=== PATIENT | female | born 1950 | race Caucasian/White ===

== ENCOUNTER 2018-05-11 12:47 | Emergency (ER) | payer MEDICARE, SELFPAY ==
[2018-05-11 12:55] VITALS: BP 145/54; PULSE 75; RESP 20; TEMP 36.7; O2SAT 95
--- NOTE | 2018-05-11 13:05 | DI.RAD_ITS ---
SYMPTOM/DIAGNOSIS: COUGH, SOB, LT BASE RHONCHI PA AND LATERAL CHEST: Comparison is made with 12/27/14. Heart size and pulmonary vasculature are stable. No consolidating infiltrates, effusions or pneumothoraces are identified. No findings to suggest congestive heart failure or pneumonia. Degenerative changes are seen in the spine. IMPRESSION: No acute pulmonary process.
--- NOTE | 2018-05-11 13:09 | ED.GENADUL_ITS ---
Discharge Plan Disposition Patient Disposition: HOME Condition: Improving Discharge Details Chief Complaint: RespSymp Clinical Impression: Acute exacerbation of chronic obstructive pulmonary disease (COPD) Primary Care Provider: Victor Manuel Maria ED Provider: Vega Salgado Home Meds and New Rx's Prescriptions: New doxycycline hyclate 100 mg capsule 100 mg PO BID 10 Days Qty: 20 RF: 0 prednisone 20 mg tablet 40 mg PO DAILY 5 Days Qty: 10 RF: 0 Continue aspirin [Aspir-81] 81 MG tablet,delayed release (DR/EC) 81 mg PO DAILY RF: 0 phenylephrine-guaifenesin [Child Mucinex Stuffy Nose-Cold] 118 ML liquid 1 tsp PO Q12H PRN Qty: 1 RF: 0 zolpidem 5 MG tablet 5 mg PO HS PRNQty: 30 RF: 1 simvastatin [Zocor] 20 MG tablet 20 mg PO HS Qty: 90 RF: 4 omeprazole 40 MG capsule,delayed release(DR/EC) 40 mg PO DAILY Qty: 90 RF: 4 metoprolol tartrate 50 MG tablet 50 mg PO BID Qty: 180 RF: 4 gabapentin 300 MG capsule 300 mg PO TID Qty: 270 RF: 4 oxybutynin chloride 5 MG tablet 2 tab PO DIRECTED Qty: 360 RF: 4 albuterol sulfate [ProAir HFA] 8.5 GM HFA aerosol inhaler 2 puff Inhalation Q4H PRN Qty: 1 RF: 5 ipratropium bromide 15 ML spray,non-aerosol 2 spry NS TID Qty: 1 RF: 5 fluticasone [Flovent HFA] 12 GM HFA aerosol inhaler 2 puff Inhalation BID Qty: 3 RF: 4 spacer 1 Q6H PRN Qty: 1 RF: 0 escitalopram oxalate 10 MG tablet 10 mg PO DAILY Qty: 90 RF: 4 Discharge Instructions Instructions: COPD (Chronic Obstructive Pulmonary Disease) (ED) Additional Instructions: Return for worsening difficulty breathing, development of fever, or any other acute concerns. Please follow-up with regular doctor if not improving in 5 days time Take medications as prescribed Medical Decision Making This is a 67-year-old female former smoker with a history of COPD. She presents with 2-3 days of worsening cough and congestion. She is afebrile, pleasant, speaking in full sentences. Her exam reveals left base rhonchi and diffuse wheeze. Given inhaled DuoNeb therapy, oral prednisone. Her differential diagnosis would include COPD exacerbation, bronchitis, pneumonia and patient referred for chest x-ray. Diagnostics: There is no acute finding on x-ray. Patient improved following treatment in the emergency department. Consistent with COPD and bronchitis. We will place her on a short burst of oral steroids and oral antibiotics. She understands return precautions to the ER. HPI General Mode of arrival: ambulatory . Date/Time Provider Initiated Documentation: 05/11/18 12:58 . Limitations to Documentation: no limitations . Information obtained by: patient . History of Present Illness 67 year old F presents to the emergency department with the chief complaint of Cough, described as moderate, Quality is described as dull, and is localized to the chest. Patient reports no radiation. Patient started experiencing this day(s) and it has been constant. No relieving factors improve symptom(s), No exacerbating factors reported . Patient notes cough; denies chest pain. HPI Narrative: Cough: 67-year-old female with history of COPD presents with days of gradual worsening of a productive cough with green sputum. She has not had a fever. She has had some improvement with home inhalers. She has no recent travel or known sick contacts. She denies any significant constitutional symptoms. She has otherwise been well Related Data Home Medications Medication Instructions Recorded Confirmed aspirin [Aspir-81] 81 mg PO DAILY tab-cap 01/19/13 05/11/18 phenylephrine-guaifenesin [Child 1 tsp PO Q12H PRN #1 bot 10/05/15 05/11/18 Mucinex Stuffy Nose-Cold] zolpidem 5 mg PO HS PRN #30 tab 09/19/17 05/11/18 simvastatin [Zocor] 20 mg PO HS #90 tab 10/02/17 05/11/18 gabapentin 300 mg PO TID #270 tab-cap 10/28/17 05/11/18 metoprolol tartrate 50 mg PO BID #180 tab-cap 10/28/17 05/11/18 omeprazole 40 mg PO DAILY #90 tab-cap 10/28/17 05/11/18 oxybutynin chloride 2 tab PO DIRECTED #360 tab 10/28/17 05/11/18 albuterol sulfate [ProAir HFA] 2 puff INHALATION Q4H PRN #1 11/15/17 05/11/18 inhaler fluticasone [Flovent HFA] 2 puff INHALATION BID #3 ea 11/15/17 05/11/18 ipratropium bromide 2 spry NS TID #1 inh 11/15/17 05/11/18 escitalopram oxalate 10 mg PO DAILY #90 tab-cap 03/04/18 05/11/18 doxycycline hyclate 100 mg PO BID 10 Days #20 cap 05/11/18 prednisone 40 mg PO DAILY 5 Days #10 tab 05/11/18 Previous Rx's Medication Instructions Recorded simvastatin [Zocor] 20 mg PO HS #90 tab 10/02/17 gabapentin 300 mg PO TID #270 tab-cap 10/28/17 metoprolol tartrate 50 mg PO BID #180 tab-cap 10/28/17 omeprazole 40 mg PO DAILY #90 tab-cap 10/28/17 oxybutynin chloride 2 tab PO DIRECTED #360 tab 10/28/17 albuterol sulfate [ProAir HFA] 2 puff INHALATION Q4H PRN #1 11/15/17 inhaler fluticasone [Flovent HFA] 2 puff INHALATION BID #3 ea 11/15/17 ipratropium bromide 2 spry NS TID #1 inh 11/15/17 escitalopram oxalate 10 mg PO DAILY #90 tab-cap 03/04/18 doxycycline hyclate 100 mg PO BID 10 Days #20 cap 05/11/18 prednisone 40 mg PO DAILY 5 Days #10 tab 05/11/18 Allergies Allergy/AdvReac Type Severity Reaction Status Date / Time hydrocodone [Hydrocodone] AdvReac Intermediate NAUSEA Unverified 05/11/18 12:58 General Stated Complaint: RespSymp TIANA: 3 Review of Systems Review of Systems 8 systems reviewed and otherwise negative PFSH Social History Smoking/Tobacco Use Status: Former Tobacco Use Surgical History Cholecystectomy (05/28/73) Exam Narrative Exam Narrative: GEN: awake, alert, oriented 3. Pleasant, well groomed, interactive. HEAD: Normocephalic, atraumatic ENT: Mucous membranes moist, oropharynx unremarkable, External ear exam unremarkable EYES: PERRL, EOMI NECK: Full ROM, no ALANNAH, no menigismus CHEST/RESP: Nontender, left base rhonchi. End expiratory wheeze bilaterally. Normal respiratory rate and excursion CARDIOVASCULAR: RRR, no murmur, rub meño. 2+ Rad pulse bilateral ABDOMEN: Soft, nontender, no mass. +Bowel sounds EXT: Full ROM, no edema, no rash Neuro: Grossly normal neurologic exam, conversant, interactive. Psych: Speech fluent, thoughts congruent, affect normal Course Vital Signs Temperature 36.7 C 05/11/18 12:55 Pulse 75 05/11/18 12:55 Respiratory Rate 20 05/11/18 12:55 Blood Pressure 145/54 H 05/11/18 12:55 Pulse Oximetry 95 05/11/18 12:55 Temperature 36.7 C 05/11/18 12:55 Temperature Source Skin 05/11/18 12:55 Pulse 75 05/11/18 12:55 Respiratory Rate 20 05/11/18 12:55 Respiratory Effort 05/11/18 13:01 Respiratory Depth Normal 05/11/18 13:01 Blood Pressure 145/54 H 05/11/18 12:55 Pulse Oximetry 95 05/11/18 12:55 Oxygen Delivery Method Room Air 05/11/18 12:55 Oxygen Flow Rate 0 05/11/18 12:55 End Tidal Co2 8 05/11/18 12:55
[2018-05-11] MEDS: predniSONE 20 MG TAB 60 MG PO (13:10)
[2018-05-11 13:11] VITALS: RESP 4; RESP 8; O2SAT 95
[2018-05-11] MEDS: Albuterol/Ipratropium 3 ML UPD VIAL UPD (13:11)
--- NOTE | 2018-05-11 14:12 | DI.VRAD_ITS ---
EXAM: XR Chest, 2 Views EXAM DATE/TIME: 05/11/2018 1:06 PM CLINICAL HISTORY: 67 years old, female; Signs and symptoms; Cough and shortness of breath; Patient HX: SOB, cough, l base rhonchi TECHNIQUE: XR of the chest, 2 views. COMPARISON: CR CHEST 2 VIEWS PA,LAT 12/27/2014 1:54 PM FINDINGS: Lungs: Stable mild interstitial prominence. No focal consolidation. Pleural space: Stable mild biapical pleural thickening. No significant pleural effusion or pneumothorax. Heart/Mediastinum: Unremarkable. No cardiomegaly. Bones/joints: Unremarkable for patient's age. IMPRESSION: No acute abnormality. Dictated and Authenticated by: Mago Villanueva MD. Ordering:FAUSTO OSBORNE MD
[2018-05-11 14:28] VITALS: BP 139/64; PULSE 68; RESP 18; TEMP 36.7; O2SAT 95
== END 2018-05-11 14:28 | disposition home or self-care (01) ==
PROVIDERS: Emergency Provider Emergency Medicine; PCP Family Medicine
DX: J44.1 Chronic obstructive pulmonary disease with (acute) exacerbation (principal); Z87.891 Personal history of nicotine dependence
CPT/HCPCS: 94640; 99284; 71046; J7512; J7620

== ENCOUNTER 2018-10-30 02:04 | Outpatient (CLI) | payer MEDICARE, SELFPAY ==
[2018-10-30 09:28] LABS: HCT 36.5 % (36.0-46.0); HGB 12.7 g/dL (12.0-15.5); Mean Corp. HGB Concentration 34.8 g/dL (32.0-36.0); Mean Corpuscular Hemoglobin 30.1 pg (27.0-33.0); Mean Corpuscular Volume 86.5 fL (80-95); Platelet Count 171 x1000/uL (130-400); RBC 4.22 m/cumm (4.00-5.20); RBC Distribution Width 14.3 % (11.7-14.6); White Blood Cell Count 6.18 k/cumm (4.4-10.8)
[2018-10-30 10:29] LABS: BUN 14 mg/dL (7-18); CREATININE 1.09 mg/dL (0.55-1.02); Calcium 10.9 mg/dL (8.5-10.1); Chloride 105 mmol/L (98-107); Estimated GFR 49.77 (mL/min/1.73m2); Glucose 142 mg/dL (70-100); Potassium 4.3 mmol/L (3.5-5.1); Sodium 141 mmol/L (136-145)
== END 2018-10-30 02:24 ==
PROVIDERS: PCP Family Medicine; Visit Provider Family Medicine
DX: D64.9 Anemia, unspecified (principal); I10 Essential (primary) hypertension
CPT/HCPCS: 36415; 80048; 85027

== ENCOUNTER 2019-01-01 02:27 | Outpatient (CLI) | payer MEDICARE, SELFPAY ==
[2019-01-01] MEDS: Inhaler, Assist Device 1 EACH MC (10:36)
[2019-01-01] MEDS: Albuterol HFA 18 GM 200 PUFF INH IH (10:37)
--- NOTE | 2019-01-01 13:33 | PFT_ITS ---
PULMONARY FUNCTION TEST REPORT DATE OF SERVICE: January 01, 2019 REQUESTING PROVIDER: Victor Manuel Maria M.D. Spirometry shows severe obstructive airways disease with significant bronchodilator response. Lung volumes show no evidence of restriction. Diffusion capacity mildly reduced, even when corrected to alveolar volume. Airways resistance elevated. IMPRESSION: Severe obstructive airways disease associated with significant bronchodilator response and mild diffusion defect. Clinical correlation recommended. When this study was compared to previous ones from 12/02/06, 05/17/08 and 12/21/11, the patient has a gradual decline in FVC of a total of 700 cc's; FEV1 has also had a gradual decline of overall 890 cc's. Clinical correlation therefore recommended. SAGE/eb D/
== END 2019-01-01 02:47 ==
PROVIDERS: PCP Family Medicine; Visit Provider Family Medicine
DX: R06.09 Other forms of dyspnea (principal); J44.9 Chronic obstructive pulmonary disease, unspecified
CPT/HCPCS: 94060; 94150; 94726; 94729

== ENCOUNTER 2019-01-15 00:07 | Outpatient (CLI) | payer MEDICARE, SELFPAY ==
--- NOTE | 2019-01-15 08:00 | DI.MAMMO_ITS ---
SYMPTOM/DIAGNOSIS: SCREENING, Z12.31 MAMMOGRAMS: Mammograms were interpreted according to the usual protocol including computer analysis with CAD system, tomosynthesis and C view imaging. The breast tissue is of moderate radiodensity. There is no dominant mass. There are no suspicious calcifications and there has been no significant interval change when compared with prior images. SUMMARY: No evidence of malignancy, category 1, annual screening mammography is recommended. Breast density, Category B. SA ASSESSMENT OF FINDINGS: Negative. Category 1. Patient will receive a letter notifying them of these results. BI-RADS category B. There are scattered areas of fibroglandular density.
== END 2019-01-15 00:27 ==
PROVIDERS: PCP Family Medicine; Visit Provider Family Medicine
DX: Z12.31 Encounter for screening mammogram for malignant neoplasm of breast (principal)
CPT/HCPCS: 77063; 77067

== ENCOUNTER 2019-06-07 17:50 | Inpatient (IN) | payer MEDICARE, SELFPAY ==
[2019-06-07] VITALS (38 sets, daily range): BP systolic 93–177; BP diastolic 52–127; PULSE 72–93; RESP 8–32; TEMP 36.7–37.1; O2SAT 90–100
--- NOTE | 2019-06-07 18:10 | ED.GENADUL_ITS ---
Discharge Plan Disposition Patient Disposition: [facility] INPATIENT Condition: Stable Discharge Details Chief Complaint: SOB Clinical Impression: Acute anemia, Acute exacerbation of chronic obstructive pulmonary disease (COPD) Admit Date/Time: 06/07/19 19:38 Admit Provider: James Yuan Attending Provider: James Yuan Primary Care Provider: Victor Manuel Maria ED Provider: Lavonne Osuna Discharge Data Discharge Date/Time-TO BE ENTERED AT DEPARTURE: 06/07/19 20:50 Medical Decision Making 1744 -- 68-year-old female with a history of COPD, anxiety, anemia with previous blood transfusions who presents with progressively worsening shortness of breath for the past month, worse today. EKG notes a rate of 79, sinus with less than [address] depression in anterolateral leads. No acute ST elevation. Respiratory rate 20s to 30s. Normal oxygen saturation on room air. She has diminished breath sounds throughout. Differential diagnosis includes acute COPD exacerbation, acute anemia, ACS. Presentation history not consistent with PE/dissection. Will give DuoNeb, steroids, screening labs and chest x-ray and reassess. 1914 --labs and imaging reviewed. Normal white blood cell count. Hemoglobin of 8.7, decreased from 12 in October 2018. Normal platelets. Low MCV and MHC which may be consistent with iron deficiency anemia. CXR negative. As patient has dyspnea on exertion, in setting of significant drop in hemoglobin, will treat with blood transfusion and admit for further observation. Case discussed with hospitalist who accepts patient for admission. Medical Records Medical records reviewed: Yes I reviewed the patient's medical records. Imaging Data Radiologic Study: Radiologist's impression: XR Chest, 2 Views Exam date and time: 06/07/2019 6:55 PM Clinical history: 68 years old, female; Other: Cough, SOB, R/O acute disease TECHNIQUE: Imaging protocol: XR of the chest Views: 2 views. COMPARISON: CR XR CHEST 2V PA LATERAL 05/11/2018 1:27 PM FINDINGS: Lungs: Lungs are hyperinflated with flattening of the hemidiaphragm and increased AP diameter. No significant interval change in diffuse, predominantly perihilar and bibasilar interstitial thickening. No focal consolidation or pulmonary edema. Pleural space: Mild biapical pleural thickening. No pneumothorax or pleural effusion. Heart/Mediastinum: Cardiomediastinal contours within normal limits. Bones/joints: No acute osseous finding. Soft tissues: No focal soft tissue abnormailty. IMPRESSION: 1. No acute finding. 2. Hyperinflation with other chronic changes as discussed. Correlate for history of COPD. Lab Data Lab results reviewed: Yes I reviewed the patient's lab results. ECG Data Attestation: I personally reviewed and interpreted this ECG (s) as follows: Interpretation: rate of 79, sinus, less than [address] depression in V4 V5 and V6. T wave inversion in aVL. No acute ST elevation. FL 164. QTc 431. QRS 94. HPI General Mode of arrival: ambulatory . Date/Time Provider Initiated Documentation: 06/07/19 17:51 . Limitations to Documentation: no limitations . Information obtained by: patient . HPI Narrative: Patient is a 68-year-old female with a history of COPD, anemia, anxiety, depression who presents with difficulty breathing, worse with exertion for the past month and worse today. She states with walking her dog outside, walking upstairs or laying flat she becomes more short of breath. She denies any leg swelling. She admits to chronic cough which is occasionally productive of clear white sputum. She denies any chest pain, dizziness, nausea or vomiting. She states she has been eating and drinking normally. Related Data Home Medications Medication Instructions Recorded Confirmed aspirin [Aspir-81] 81 mg PO DAILY tab-cap 01/19/13 06/07/19 Child Mucinex Stuffy Nose-Cold 1 tsp PO Q12H PRN #1 bot 10/05/15 06/07/19 simvastatin 20 mg tablet 20 mg PO HS #90 tab 07/29/18 06/07/19 metoprolol tartrate 50 mg tablet 50 mg PO BID #180 tab-cap 07/31/18 06/07/19 omeprazole 40 mg capsule,delayed 40 mg PO DAILY #90 tab-cap 07/31/18 06/07/19 release gabapentin 300 mg capsule 300 mg PO TID #270 tab-cap 08/05/18 06/07/19 albuterol sulfate 90 mcg/actuation 2 puff IH Q6H PRN #18 gm 10/07/18 06/07/19 aerosol inhaler amitriptyline 75 mg tablet 75 mg PO QHS #90 tab 12/18/18 06/07/19 fluticasone propionate 110 2 puff IH BID #12 gm 02/10/19 06/07/19 mcg/actuation HFA aerosol inhaler Previous Rx's Medication Instructions Recorded simvastatin 20 mg tablet 20 mg PO HS #90 tab 07/29/18 metoprolol tartrate 50 mg tablet 50 mg PO BID #180 tab-cap 07/31/18 omeprazole 40 mg capsule,delayed 40 mg PO DAILY #90 tab-cap 07/31/18 release gabapentin 300 mg capsule 300 mg PO TID #270 tab-cap 08/05/18 albuterol sulfate 90 mcg/actuation 2 puff IH Q6H PRN #18 gm 10/07/18 aerosol inhaler amitriptyline 75 mg tablet 75 mg PO QHS #90 tab 12/18/18 fluticasone propionate 110 2 puff IH BID #12 gm 02/10/19 mcg/actuation HFA aerosol inhaler Allergies Allergy/AdvReac Type Severity Reaction Status Date / Time hydrocodone [Hydrocodone] AdvReac Intermediate NAUSEA Unverified 06/07/19 18:01 General Stated Complaint: SOB TIANA: 3 Review of Systems Review of Systems ROS Unobtainable: All systems reviewed & are unremarkable except as noted in HPI and below Constitutional Constitutional: Reports as per HPI, Denies chills and Denies fever(s) Eyes Eyes: Denies blurry vision ENT Ears, Nose, Mouth, and Throat: Denies dizziness, Denies sore throat and Denies throat swelling Cardiovascular Cardiovascular: Denies chest pain and Reports dyspnea Respiratory Respiratory: Reports cough and Reports dyspnea Gastrointestinal Gastrointestinal: Denies abdominal pain, Denies diarrhea and Denies vomiting Genitourinary Genitourinary: Denies hematuria and Denies dysuria Musculoskeletal Musculoskeletal: Denies back pain and Denies numbness Integumentary/Breasts Skin/Breast: Denies lesions and Denies rash Neurologic Neurologic: Denies dizziness, Denies focal weakness and Denies numbness Allergic/Immunologic Allergic/Immunologic: Denies throat swelling [facility] Medical History Anxiety (Inactive) Chronic obstructive lung disease (Inactive) Depressive disorder (Inactive) Essential hypertension (Inactive) Gastroesophageal reflux disease (Inactive) Hypercalcemia (Resolved 09/23/15) Hyperlipidemia (Inactive) Iron deficiency anemia due to chronic blood loss (Resolved 01/11/15) Morbid obesity (Inactive 12/19/14) GHISLAINE (obstructive sleep apnea) (Inactive 12/19/14) Primary insomnia (Inactive 10/14/15) Severe anemia (Resolved 12/19/14) Surgical History Cholecystectomy (05/28/73) Social History Smoking/Tobacco Use Status: Former Tobacco Use Alcohol Intake: never Drug use: Never Substance use type: does not use Do you feel safe at home: Yes Do you feel safe in your relationship?: Yes Exam Const General: cooperative, healthy appearing and no acute distress HENMT Head: normal to inspection Face and sinus: normal facial exam Eyes General: appearance normal, both eyes and all related structures Pupils: PERRL EOM: EOM intact bilaterally Neck Neck: normal visual inspection and No submandibular swelling Lymphatic: no lymphadenopathy noted Chest Chest: normal inspection of the chest and no tenderness Resp Effort & Inspection: normal respiratory effort and able to speak in complete sentences Auscultation: diminished lung sounds bilaterally throughout Cardio Rate: regular rate Rhythm: regular rhythm GI Inspection: normal to inspection Palpation: soft, not firm, not rigid and nontender Auscultation: normal bowel sounds Skin General skin exam: no rashes or lesions noted Neuro General: alert, awake and oriented x3 Cognition: normal cognition Speech: speech normal Motor: muscle tone normal throughout Sensory Exam: no sensory deficits noted Extrem General: normal to inspection, full ROM, normal capillary refill, no calf tenderness bilaterally and no edema Psych Appearance: grossly normal Mental Status: mental status grossly normal Speech and Movement: speech and movement normal Affect: normal affect Course Vital Signs Vital signs: Vital Signs Temperature 98.8 F 06/07/19 17:57 Pulse 82 06/07/19 17:57 Respiratory Rate 32 H 06/07/19 17:57 Blood Pressure 125/67 06/07/19 17:57 Pulse Oximetry 97 06/07/19 17:57 Temperature 98.8 F 06/07/19 17:57 Temperature Source Tympanic 06/07/19 17:57 Pulse 82 06/07/19 17:57 Respiratory Rate 32 H 06/07/19 17:57 Blood Pressure 125/67 06/07/19 17:57 Pulse Oximetry 97 06/07/19 17:57 Oxygen Delivery Method Room Air 06/07/19 17:57 Oxygen Flow Rate 0 06/07/19 17:57 Pain Level 0 06/07/19 17:57
--- NOTE | 2019-06-07 18:21 | DI.RAD_ITS ---
EXAM: XR CHEST 2V PA LATERAL INDICATION: cough, sob, r/o acute disease. COMPARISON: XR CHEST 2V PA LATERAL from 05/11/2018 TECHNIQUE: 2D digital imaging was performed. FINDINGS: The examination reveals evidence of COPD. Increased interstitial markings are identified. There is no evidence of an infiltrate. No evidence of a pleural effusion. Bilateral apical pleural thickening is identified. There is no evidence of a pneumothorax. Heart is not enlarged. The hilar structures , mediastinum and tracheal air column are intact. There is no acute bony abnormality. There is no sof t tissue abnormality. IMPRESSION: No acute abnormality is demonstrated. Emphysematous changes involving the lungs.
[2019-06-07 18:28] LABS: Abs Immature Grans 0.01 k/cumm (0.0-0.09); Absolute Basophil Count 0.07 k/cumm (0.0-0.2); Absolute Eosinophil Count 0.44 k/cumm (0.0-0.7); Absolute Lymphocyte Count 1.86 k/cumm (1.2-3.4); Absolute Monocyte Count 0.84 k/cumm (0.11-0.7); Absolute Neutrophil Count 4.03 k/cumm (1.2-6.7); Eosinophils % 6.1; HCT 29.1 % (36.0-46.0); HGB 8.7 g/dL (12.0-15.5); Immature Grans % 0.1; Lymphocytes % 25.7; Mean Corp. HGB Concentration 29.9 g/dL (32.0-36.0); Mean Corpuscular Hemoglobin 21.6 pg (27.0-33.0); Mean Corpuscular Volume 72.4 fL (80-95); Mean Platelet Volume 11.5 fL (8.0-11.0); Monocytes % 11.6; Neutrophils % 55.5; Platelet Count 219 x1000/uL (130-400); RBC 4.02 m/cumm (4.00-5.20); RBC Distribution Width 16.5 % (11.7-14.6); White Blood Cell Count 7.25 k/cumm (4.4-10.8)
[2019-06-07] MEDS: methylPREDNISolone SUCC 125 MG VIAL IVP (18:36)
[2019-06-07] MEDS: Albuterol/Ipratropium 3 ML UPD VIAL UPD ×2 (18:36→23:51)
[2019-06-07 18:42] LABS: Anisocytosis 1+; Hypochromasia 2+; Microcytosis 3+
[2019-06-07 18:43] LABS: ALT 23 U/L (14-59); AST 21 U/L (15-37); Albumin 3.7 g/dL (3.4-5.0); Alkaline Phosphatase 145 U/L (46-116); Anion Gap 9.1 mmol/L (3-11); BUN 18 mg/dL (7-18); Bilirubin, Total 0.4 mg/dL (0.2-1.0); CO2 25.9 mmol/L (21.0-32.0); CREATININE 1.16 mg/dL (0.55-1.02); Calcium 10.5 mg/dL (8.5-10.1); Chloride 105 mmol/L (98-107); Estimated GFR 46.32 (mL/min/1.73m2); Glucose 161 mg/dL (70-100); Potassium 4.2 mmol/L (3.5-5.1); Sodium 140 mmol/L (136-145); Total Protein 7.3 g/dL (6.4-8.2); Troponin I < 0.05 ng/mL (0.00-0.06)
[2019-06-07] MEDS: Albuterol 2.5 MG/3 ML INH SOLN VIAL 5 MG UPD (19:19)
--- NOTE | 2019-06-07 19:24 | DI.VRAD_ITS ---
PROCEDURE INFORMATION: Exam: XR Chest, 2 Views Exam date and time: 06/07/2019 6:55 PM Clinical history: 68 years old, female; Other: Cough, SOB, R/O acute disease TECHNIQUE: Imaging protocol: XR of the chest Views: 2 views. COMPARISON: CR XR CHEST 2V PA LATERAL 05/11/2018 1:27 PM FINDINGS: Lungs: Lungs are hyperinflated with flattening of the hemidiaphragm and increased AP diameter. No significant interval change in diffuse, predominantly perihilar and bibasilar interstitial thickening. No focal consolidation or pulmonary edema. Pleural space: Mild biapical pleural thickening. No pneumothorax or pleural effusion. Heart/Mediastinum: Cardiomediastinal contours within normal limits. Bones/joints: No acute osseous finding. Soft tissues: No focal soft tissue abnormailty. IMPRESSION: 1. No acute finding. 2. Hyperinflation with other chronic changes as discussed. Correlate for history of COPD. Dictated and Authenticated by: Drew Antonio MD. Ordering:NIMO Banerjee MD
--- NOTE | 2019-06-07 20:13 | HPE_ITS ---
Date of service: 06/07/19 Time of Service: 20:13 Assessment and Plan Assessment and plan (1) COPD exacerbation: Start date: 06/07/19 Status: Acute Assessment and plan: This is a 68-year-old lady with acute onset of shortness of breath and recurrent anemia which may be contributing. She does have COPD which is exacerbated. He responds to nebulizer treatments and IV Solu-Medrol and these will be continued. He is not requiring IV antibiotic coverage for this problem having no increased white count or fever. She does have a problem with hyperglycemia and will be covered with before meals and at bedtime short acting insulin while on Solu-Medrol. (2) Acute anemia: Start date: 06/07/19 Status: Acute Assessment and plan: This recurring patient having iron deficiency and microcytosis also with her increased alkaline phosphatase and calcium along with renal insufficiency we need to consider multiple myeloma or other blood disorders which would cause anemia. She will receive 1 unit of packed red blood cells long-term needs further evaluation. She may warrant outpatient hematology consultation as an outpatient but in the short term start iron supplementation and consider reevaluation for GI blood loss. (3) Hypercalcemia: Status: Chronic Assessment and plan: This problem is persistent and PTH will be sent. Outpatient further evaluation with endocrinology may be warranted. Consider a ssociation with anemia versus primary hyperparathyroidism. History of Present Illness History of Present Illness Chief Complaint: Shortness of breath Narrative: This is a 68-year-old lady who presented with a history of dyspnea on exertion worsening over the last month and at its worse the day of presentation to the ED. She knows the most when he was exerting himself walking her dog and walking up and down stairs. Walking on flat terrain and laying flat also became more difficult the day pf presentation. She has had no peripheral edema. She has had a history of iron deficiency anemia in the past but did require transfusion with endoscopies revealing some gastritis but nothing to explain her drop in hemoglobin. Since that time her hemoglobin has been in the normal range and upon presentation today it has dropped again below 9/dL. Patient was evaluated in the ED she was noted to have exacerbation of her COPD and did respond to nebulizer treatments. Her creatinine was slightly up from baseline but she is doing well with oral hydration and did not receive IV fluids but will be receiving a unit of packed red blood cells which may help with hydration. At the time I saw the patient she was comfortable and eating a late supper. Patient had been having a mild cough with production but no other respiratory or GI symptoms. He had no peripheral edema as mentioned. Patient has not seen any blood in her urine or stool. Review of Systems Review of Systems Narrative: 13 point review of systems otherwise unrevealing or stable. Patient is mildly overweight and this is been stable. Patient has had hyperglycemia in the past but is been diet-controlled. When she is on steroids as does worsen. [facility] Medical History Anxiety (Inactive) Chronic obstructive lung disease (Inactive) Depressive disorder (Inactive) Essential hypertension (Inactive) Gastroesophageal reflux disease (Inactive) Hypercalcemia (Resolved 09/23/15) Hyperlipidemia (Inactive) Iron deficiency anemia due to chronic blood loss (Resolved 01/11/15) Morbid obesity (Inactive 12/19/14) GHISLAINE (obstructive sleep apnea) (Inactive 12/19/14) Primary insomnia (Inactive 10/14/15) Severe anemia (Resolved 12/19/14) Surgical History Cholecystectomy (05/28/73) Social History Smoking/Tobacco Use Status: Former Tobacco Use Alcohol Intake: never Drug use: Never Substance use type: does not use Do you feel safe at home: Yes Do you feel safe in your relationship?: Yes Meds Home Medications and Allergies Home Medications Medication Instructions Recorded Confirmed Type aspirin [Aspir-81] 81 mg PO DAILY tab-cap 01/19/13 06/07/19 History Child Mucinex Stuffy Nose-Cold 1 tsp PO Q12H PRN #1 bot 10/05/15 06/07/19 History Spacer 1 Q6H PRN #1 ea 11/15/17 02/10/19 Clinic simvastatin 20 mg tablet 20 mg PO HS #90 tab 07/29/18 06/07/19 Rx metoprolol tartrate 50 mg tablet 50 mg PO BID #180 tab-cap 07/31/18 06/07/19 Rx omeprazole 40 mg capsule,delayed 40 mg PO DAILY #90 tab-cap 07/31/18 06/07/19 Rx release gabapentin 300 mg capsule 300 mg PO TID #270 tab-cap 08/05/18 06/07/19 Rx albuterol sulfate 90 mcg/actuation 2 puff IH Q6H PRN #18 gm 10/07/18 06/07/19 Rx aerosol inhaler amitriptyline 75 mg tablet 75 mg PO QHS #90 tab 12/18/18 06/07/19 Rx fluticasone propionate 110 2 puff IH BID #12 gm 02/10/19 06/07/19 Rx mcg/actuation HFA aerosol inhaler Allergies Allergy/AdvReac Type Severity Reaction Status Date / Time hydrocodone [Hydrocodone] AdvReac Intermediate NAUSEA Unverified 06/07/19 18:01 Exam Narrative Exam Narrative: General: Moderately obese, no acute distress and alert and oriented x3. HEENT: Normocephalic with eyes revealing pupils equal react light symmetrically, sclera anicteric and extraocular movement intact. oropharynx with slightly dry oral mucosa. Neck: Supple without JVD. Lungs: Fair aeration with bronchovesicular breath sounds diffusely no focalizing rales or rhonchi. There is no wheezing only slightly increased expiratory phase. Heart: Regular rate and rhythm with no murmurs or gallops appreciated. Breast: Exam deferred. Abdomen: Obese contour, soft and nontender to palpation. Positive all quadrants . Back: Without CVA tenderness, stooped posture. Genitalia/rectal: Exam deferred. Extremities: Without pitting edema, cyanosis or clubbing. Good capillary refill. Peripheral pulses decreased but intact. Osteoarthritic changes of the larger joints. Skin: Pale, warm and dry. Neuro: Cranial nerves II through XII grossly intact, no focalizing motor deficits. Psych: Normal mood and affect with good eye contact. Memory appears to be intact. Results Imaging Additional studies: PTH has been elevated in the past but not measured recently. She has had persistent hypercalcemia in the recent past. Labs Result diagrams: 06/07/19 18:14 06/07/19 18:14 Labs: Laboratory Results - last 24 hr 06/07/19 06/07/19 06/07/19 18:14 18:14 19:36 WBC 7.25 RBC 4.02 Hgb 8.7 L Hct 29.1 L MCV 72.4 L MCH 21.6 L MCHC 29.9 L RDW 16.5 H Plt Count 219 MPV 11.5 H Immature Gran % 0.1 Neutrophils % 55.5 Lymphocytes % 25.7 Monocytes % 11.6 Eosinophils % 6.1 Basophils % 1.0 Absolute Neutrophils 4.03 Absolute Lymphocytes 1.86 Absolute Monocytes 0.84 H Absolute Eosinophils 0.44 Absolute Basophils 0.07 RBC Morphology See below Hypochromasia 2+ Anisocytosis 1+ Microcytosis 3+ Sodium 140 Potassium 4.2 Chloride 105 Carbon Dioxide 25.9 Anion Gap 9.1 BUN 18 Creatinine 1.16 H Estimated GFR/1.73 m2 46.32 Glucose 161 H Calcium 10.5 H Magnesium 2.0 Total Bilirubin 0.4 AST 21 ALT 23 Alkaline Phosphatase 145 H Troponin I < 0.05 Total Protein 7.3 Albumin 3.7 Patient ABO/Rh Crossmatch See Detail 06/07/19 19:50 WBC RBC Hgb Hct MCV MCH MCHC RDW Plt Count MPV Immature Gran % Neutrophils % Lymphocytes % Monocytes % Eosinophils % Basophils % Absolute Neutrophils Absolute Lymphocytes Absolute Monocytes Absolute Eosinophils Absolute Basophils RBC Morphology Hypochromasia Anisocytosis Microcytosis Sodium Potassium Chloride Carbon Dioxide Anion Gap BUN Creatinine Estimated GFR/1.73 m2 Glucose Calcium Magnesium Total Bilirubin AST ALT Alkaline Phosphatase Troponin I Total Protein Albumin Patient ABO/Rh Cancelled Crossmatch 1 unit with transfusion Last Vital Signs Temp 37.1 C 06/07/19 17:57 Pulse 79 06/07/19 19:01 Resp 32 H 06/07/19 19:01 BP 130/76 06/07/19 19:01 Pulse Ox 95 06/07/19 19:01
[2019-06-07 20:26] LABS: Reticulocyte 2.6 % (0.5-2.4)
[2019-06-07 20:31] LABS: PTT Activated 21.4 sec (21.0-31.4)
[2019-06-07 20:34] LABS: Prothrombin Time 10.4 sec (9.3-11.0)
[2019-06-07 20:36] LABS: Iron 25 ug/dL (50-175); Total Iron Binding Capacity 496 ug/dL (250-450); Transferrin Sat 5 % (15-50)
[2019-06-07 20:50] LABS: TSH (W/Ref FT4) 1.97 uIU/mL (0.36-3.74)
[2019-06-07 20:52] LABS: Ferritin 172 ng/mL (8-388); Folate 13.8 ng/mL (8.6-20.0); Vitamin B12 417 pg/mL (193-986)
[2019-06-07 20:57] LABS: NT-proBNP 562 pg/mL
[2019-06-07] MEDS: Amitriptyline 25 MG TAB 75 MG PO (21:50)
[2019-06-07] MEDS: Metoprolol 50 MG TAB PO (21:51)
[2019-06-07] MEDS: Insulin Aspart 300 UNITS/3 ML PEN SC (21:51)
[2019-06-07] MEDS: Simvastatin 20 MG TAB PO (21:51)
[2019-06-07] MEDS: Gabapentin 300 MG CAP PO (21:51)
[2019-06-07 22:56] LABS: Troponin I < 0.05 ng/mL (0.00-0.06)
[2019-06-07 23:03] LABS: Bilirubin Negative (Negative); Blood Negative (Negative); Clarity Clear (Clear); Glucose Negative (Negative); Ketones Negative (Negative); Leukocyte Esterase Negative (Negative); Nitrite Negative (Negative); Urobilinogen 0.2 EU/dL (Up TO 0.2)
[2019-06-07] MEDS: methylPREDNISolone SUCC 125 MG VIAL 80 MG IVP (23:50)
[2019-06-07] MEDS: Normal Saline Flush 10 ML SYR IVP (23:51)
[2019-06-08] VITALS (18 sets, daily range): BP systolic 136–162; BP diastolic 53–76; PULSE 74–103; RESP 1–20; TEMP 36.5–37; O2SAT 92–98
[2019-06-08] MEDS: Albuterol/Ipratropium 3 ML UPD VIAL UPD ×4 (06:28→23:31)
[2019-06-08 07:32] LABS: Troponin I < 0.05 ng/mL (0.00-0.06)
[2019-06-08] MEDS: Normal Saline Flush 10 ML SYR IVP ×2 (07:43→16:49)
[2019-06-08] MEDS: Metoprolol 50 MG TAB PO ×2 (07:44→20:07)
[2019-06-08] MEDS: Aspirin E.C. 81 MG TABEC PO (07:44)
[2019-06-08] MEDS: Gabapentin 300 MG CAP PO ×3 (07:44→20:07)
[2019-06-08] MEDS: methylPREDNISolone SUCC 125 MG VIAL 80 MG IVP ×2 (07:44→16:47)
[2019-06-08] MEDS: Omeprazole 20 MG CAPCR 40 MG PO (07:44)
[2019-06-08 08:05] LABS: HCT 32.4 % (36.0-46.0); Mean Corp. HGB Concentration 30.9 g/dL (32.0-36.0); Mean Corpuscular Hemoglobin 22.7 pg (27.0-33.0); Mean Corpuscular Volume 73.5 fL (80-95); Mean Platelet Volume 11.5 fL (8.0-11.0); Platelet Count 215 x1000/uL (130-400); RBC 4.41 m/cumm (4.00-5.20); RBC Distribution Width 17.7 % (11.7-14.6); White Blood Cell Count 8.64 k/cumm (4.4-10.8)
[2019-06-08] MEDS: Insulin Aspart 300 UNITS/3 ML PEN SC ×3 (08:26→21:45)
[2019-06-08 08:31] LABS: ALT 22 U/L (14-59); AST 19 U/L (15-37); Albumin 3.8 g/dL (3.4-5.0); Alkaline Phosphatase 140 U/L (46-116); Anion Gap 13.2 mmol/L (3-11); BUN 22 mg/dL (7-18); Bilirubin, Total 0.5 mg/dL (0.2-1.0); CO2 21.8 mmol/L (21.0-32.0); CREATININE 1.18 mg/dL (0.55-1.02); Calcium 10.8 mg/dL (8.5-10.1); Chloride 105 mmol/L (98-107); Estimated GFR 45.42 (mL/min/1.73m2); Glucose 247 mg/dL (70-100); Potassium 4.3 mmol/L (3.5-5.1); Sodium 140 mmol/L (136-145); Total Protein 7.5 g/dL (6.4-8.2)
[2019-06-08] MEDS: Cyanocobalamin 500 MCG TAB 1000 MCG PO (11:22)
--- NOTE | 2019-06-08 12:02 | PDOC.CMIN ---
- If Service Date Differs Date of service: 06/08/19 Time of Service: 12:02 Care Management Initial Assess REASON FOR HOSPITALIZATION:: COPD Exacerbation, Acute Anemia PAST MEDICAL HISTORY/PAST SURGICAL HISTORY:: Medical History. Anxiety (Inactive). Chronic obstructive lung disease (Inactive). Depressive disorder (Inactive). Essential hypertension (Inactive). Gastroesophageal reflux disease (Inactive). Hypercalcemia (Resolved 09/23/15). Hyperlipidemia (Inactive). Iron deficiency anemia due to chronic blood loss (Resolved 01/11/15). Morbid obesity (Inactive 12/19/14). GHISLAINE (obstructive sleep apnea) (Inactive 12/19/14). Primary insomnia (Inactive 10/14/15). Severe anemia (Resolved 12/19/14). Surgical History. Cholecystectomy (05/28/73) PREVIOUS FUNCTIONAL STATUS/SOCIAL/FAMILY SUPPORTS:: Jessica currently lives with her son in an apartment in [facility], but she has plans to move in with her sister in [place] following this hospital stay. She is retired from working at [employer]. She has many supportive family members. She is independent with her ADL's, but she does not drive anymore. CURRENT FUNCTIONAL STATUS:: Jessica was sitting up in her chair when she met with CM. She was pleasant and engaged in conversation. She stated that when she leaves the hospital she will be moving in with her sister, who is an MULTIMEDIA SERVICES MANAGER at [employer]. She reported that she has had some testing, and she may be able to go home once the results are back. She reported that she is feeling better today. CM will continue to follow. ADVANCE DIRECTIVES:: On file, Arthur Shrestha listed as agent. Has patient been provided with information about the portal?: No Did the patient sign up for the portal?: No (prev declined) CODE STATUS:: Full Code INSURANCE COVERAGE / FINANCIAL ISSUES:: [facility] ASSIST 100% CURRENT HOME/COMMUNITY SERVICES/EQUIPMENT:: Jessica currently has home O2. PRIMARY CARE PHYSICIAN:: Victor Manuel Maria POTENTIAL DISCHARGE NEEDS:: Evalutations for further needs, follow up appointments PATIENT/FAMILY EDUCATION NEEDS:: Review of community based supports, discharge plan, discussion of self care needs including Ask Me Three ANTICIPATED BARRIERS TO DISCHARGE:: None identified at this time TRANSPORTATION:: Jessica will be driven home by family via private vehicle. PLAN:: Anticipate Jessica will return home when medically cleared. She plans to move in with her sister who can assist her with ADL's if needed. CM will provide her with information on RCT, as she is no longer driving. She will have follow up appointments with PCP. CM will continue to follow.
--- NOTE | 2019-06-08 16:53 | CHAPLAIN ---
Jessica said she is likely to go home today. She'll be moving in with her sister because she said she can no longer live by herself, and her three sons all live at a distance. Jessica seemed accepting that this is what she needed to do.
--- NOTE | 2019-06-08 17:55 | PGE_ITS ---
Date of Service Date of service: 06/08/19 Time of Service: 16:00 Assessment and Plan Assessment and plan (1) COPD exacerbation: Status: Acute Assessment and plan: At or near baseline. D/c IV steroids, convert to prednisone. Continue scheduled and prn nebs, add mometasone (normally on flutciasone). Consider symbicort. Will ambulate with pulse ox prior to discharge. Might benefit from outpatient pulmonary rehab. (2) Acute on chronic anemia: Status: Acute Assessment and plan: She is b12 deficient and hypercalcemic - important to replete b12 and ensure that the patient does not have an underlying multiple myeloma (SPEP sent),, but we have not proven that she is not bleeding. Await hemoccult. May benefit from a repeat endoscopy evaluation, but could be done as outpatient. (3) Hypercalcemia: Status: Chronic Assessment and plan: Chronic issue. ?MM - SPEP pending. (4) GERD (gastroesophageal reflux disease): Status: Chronic Assessment and plan: Continue PPI (5) DVT prophylaxis: Status: Acute Assessment and plan: TEDs + SCD's (chemical DVT ppx contraindicated in setting of possible bleeding) (6) Discharge planning issues: Status: Acute Assessment and plan: Full code Might benefit from pulmonary rehab as outpatient. Subjective Subjective Interval history since last seen: Ms Gordon states that her breathing is nearly normal. She has not had a productive cough today and no wheezing. She feels almost back to normal. Her biggest complaint today is that she is constipated. It's been several days since her last BM. Denies dizziness, chest pain, shortness of breath unless she exerted herself today, nausea, vomiting, abdominal pain, seeing blood in stool. She is interested in a better breathers program and/or pulmonary rehab. Exam Narrative Exam Narrative: General: very pleasant middle-aged female, A&Ox3, sitting comfortably in a chair on room air, A&Ox3 HEENT: EOMI, MMM Heart: RRR, no m/r/g Lungs: diminished breath sounds B, no wheezing/rales GI: abdomen is soft, nontender, full Extremities: trace edema BLE's, no c/c Objective Objective Clinical Data: Abnormal lab results 06/07/19 06/07/19 06/07/19 Range/Units 18:14 18:14 18:14 Hgb 8.7 L (12.0-15.5) g/dL Hct 29.1 L (36.0-46.0) % MCV 72.4 L (80-95) fL MCH 21.6 L (27.0-33.0) pg MCHC 29.9 L (32.0-36.0) g/dL RDW 16.5 H (11.7-14.6) % MPV 11.5 H (8.0-11.0) fL Absolute Monocytes 0.84 H (0.11-0.7) k/cumm Retic Count (0.5-2.4) % Anion Gap (3-11) mmol/L BUN (7-18) mg/dL Creatinine 1.16 H (0.55-1.02) mg/dL Glucose 161 H (70-100) mg/dL Calcium 10.5 H (8.5-10.1) mg/dL Iron 25 L (50-175) ug/dL TIBC 496 H (250-450) ug/dL Transferrin % Sat 5 L (15-50) % Alkaline Phosphatase 145 H (46-116) U/L NT-Pro-B Natriuret Pep ( - 299) pg/mL Crossmatch 06/07/19 06/07/19 06/07/19 Range/Units 18:14 18:14 19:36 Hgb (12.0-15.5) g/dL Hct (36.0-46.0) % MCV (80-95) fL MCH (27.0-33.0) pg MCHC (32.0-36.0) g/dL RDW (11.7-14.6) % MPV (8.0-11.0) fL Absolute Monocytes (0.11-0.7) k/cumm Retic Count 2.6 H (0.5-2.4) % Anion Gap (3-11) mmol/L BUN (7-18) mg/dL Creatinine (0.55-1.02) mg/dL Glucose (70-100) mg/dL Calcium (8.5-10.1) mg/dL Iron (50-175) ug/dL TIBC (250-450) ug/dL Transferrin % Sat (15-50) % Alkaline Phosphatase (46-116) U/L NT-Pro-B Natriuret Pep 562 H ( - 299) pg/mL Crossmatch See Detail 06/07/19 06/08/19 06/08/19 Range/Units 19:50 07:50 07:50 Hgb 10.0 L (12.0-15.5) g/dL Hct 32.4 L (36.0-46.0) % MCV 73.5 L (80-95) fL MCH 22.7 L (27.0-33.0) pg MCHC 30.9 L (32.0-36.0) g/dL RDW 17.7 H (11.7-14.6) % MPV 11.5 H (8.0-11.0) fL Absolute Monocytes (0.11-0.7) k/cumm Retic Count (0.5-2.4) % Anion Gap 13.2 H (3-11) mmol/L BUN 22 H (7-18) mg/dL Creatinine 1.18 H (0.55-1.02) mg/dL Glucose 247 H D (70-100) mg/dL Calcium 10.8 H (8.5-10.1) mg/dL Iron (50-175) ug/dL TIBC (250-450) ug/dL Transferrin % Sat (15-50) % Alkaline Phosphatase 140 H (46-116) U/L NT-Pro-B Natriuret Pep ( - 299) pg/mL Crossmatch See Detail Vital Signs Temperature 37 C 06/08/19 16:32 Temperature Source Tympanic 06/08/19 16:32 Pulse 80 06/08/19 16:32 Pulse Rhythm Regular 06/08/19 03:45 Pulse 93 H 06/07/19 20:32 Respiratory Rate 18 06/08/19 16:32 Respiratory Effort Non-Labored 06/08/19 03:45 Respiratory Depth Shallow 06/08/19 03:45 Respiratory Pattern Normal 06/08/19 03:45 Blood Pressure 139/66 06/08/19 16:32 Blood Pressure Mean 79 06/07/19 20:32 Pulse Oximetry 98 06/08/19 16:32 Oxygen Delivery Method Room Air 06/08/19 16:32 Oxygen Flow Rate 0 06/08/19 16:32 Pain Level 0 06/08/19 16:32 Intake & Output 06/07/19 06/08/19 06/08/19 23:59 11:59 23:59 Intake Total 393 / 393 Output Total 500 / 500 1750 / 1750 Balance -500 / -500 -1357 / -1357 Weight 99.79 kg 99 kg Intake: Blood Product 343 / 343 Rbc Leuko Reduced Unit 343 / 343 [id number] Other 50 / 50 Rbc Leuko Reduced Unit 50 / 50 [id number] Output: Urine 500 / 500 1650 / 1650 Emesis 100 / 100 Other: Urine Color Yellow Yellow Urine Appearance Clear Clear Urine Odor None Comment pt also incontinent r/t coughing Emesis Description Mucous Voiding Methods Toilet Toilet Laboratory Results WBC 8.64 k/cumm (4.4-10.8) 06/08/19 07:50 RBC 4.41 m/cumm (4.00-5.20) 06/08/19 07:50 Hgb 10.0 g/dL (12.0-15.5) L 06/08/19 07:50 Hct 32.4 % (36.0-46.0) L 06/08/19 07:50 MCV 73.5 fL (80-95) L 06/08/19 07:50 MCH 22.7 pg (27.0-33.0) L 06/08/19 07:50 MCHC 30.9 g/dL (32.0-36.0) L 06/08/19 07:50 RDW 17.7 % (11.7-14.6) H 06/08/19 07:50 Plt Count 215 x1000/uL (130-400) 06/08/19 07:50 MPV 11.5 fL (8.0-11.0) H 06/08/19 07:50 Immature Gran % 0.1 06/07/19 18:14 Neutrophils % 55.5 06/07/19 18:14 Lymphocytes % 25.7 06/07/19 18:14 Monocytes % 11.6 06/07/19 18:14 Eosinophils % 6.1 06/07/19 18:14 Basophils % 1.0 06/07/19 18:14 Absolute Neutrophils 4.03 k/cumm (1.2-6.7) 06/07/19 18:14 Absolute Lymphocytes 1.86 k/cumm (1.2-3.4) 06/07/19 18:14 Absolute Monocytes 0.84 k/cumm (0.11-0.7) H 06/07/19 18:14 Absolute Eosinophils 0.44 k/cumm (0.0-0.7) 06/07/19 18:14 Absolute Basophils 0.07 k/cumm (0.0-0.2) 06/07/19 18:14 RBC Morphology See below 06/07/19 18:14 Hypochromasia 2+ 06/07/19 18:14 Anisocytosis 1+ 06/07/19 18:14 Microcytosis 3+ 06/07/19 18:14 Retic Count 2.6 % (0.5-2.4) H 06/07/19 18:14 PT 10.4 sec (9.3-11.0) 06/07/19 18:14 INR 1.0 (0.9-1.1) 06/07/19 18:14 APTT 21.4 sec (21.0-31.4) 06/07/19 18:14 Sodium 140 mmol/L (136-145) 06/08/19 07:50 Potassium 4.3 mmol/L (3.5-5.1) 06/08/19 07:50 Chloride 105 mmol/L (98-107) 06/08/19 07:50 Carbon Dioxide 21.8 mmol/L (21.0-32.0) 06/08/19 07:50 Anion Gap 13.2 mmol/L (3-11) H 06/08/19 07:50 BUN 22 mg/dL (7-18) H 06/08/19 07:50 Creatinine 1.18 mg/dL (0.55-1.02) H 06/08/19 07:50 Estimated GFR/1.73 m2 45.42 (mL/min/1.73m2) 06/08/19 07:50 Glucose 247 mg/dL (70-100) H D 06/08/19 07:50 Calcium 10.8 mg/dL (8.5-10.1) H 06/08/19 07:50 Magnesium 2.0 mg/dL (1.8-2.4) 06/07/19 18:14 Iron 25 ug/dL (50-175) L 06/07/19 18:14 TIBC 496 ug/dL (250-450) H 06/07/19 18:14 Transferrin % Sat 5 % (15-50) L 06/07/19 18:14 Ferritin 172 ng/mL (8-388) 06/07/19 18:14 Total Bilirubin 0.5 mg/dL (0.2-1.0) 06/08/19 07:50 AST 19 U/L (15-37) 06/08/19 07:50 ALT 22 U/L (14-59) 06/08/19 07:50 Alkaline Phosphatase 140 U/L (46-116) H 06/08/19 07:50 Troponin I < 0.05 ng/mL (0.00-0.06) 06/08/19 06:28 NT-Pro-B Natriuret Pep 562 pg/mL (-299) H 06/07/19 18:14 Total Protein 7.5 g/dL (6.4-8.2) 06/08/19 07:50 Albumin 3.8 g/dL (3.4-5.0) 06/08/19 07:50 Vitamin B12 417 pg/mL (193-986) 06/07/19 18:14 Folate 13.8 ng/mL (8.6-20.0) 06/07/19 18:14 TSH 1.97 uIU/mL (0.36-3.74) 06/07/19 18:14 Urine Color Yellow (Yellow) 06/07/19 22:49 Urine Clarity Clear (Clear) 06/07/19 22:49 Urine pH 5.0 (5-8) 06/07/19 22:49 Ur Specific [place] 1.010 (1.005-1.025) 06/07/19 22:49 Urine Protein Negative mg/dL (Negative) 06/07/19 22:49 Urine Ketones Negative mg/dL (Negative) 06/07/19 22:49 Urine Blood Negative (Negative) 06/07/19 22:49 Urine Nitrite Negative (Negative) 06/07/19 22:49 Urine Bilirubin Negative (Negative) 06/07/19 22:49 Urine Urobilinogen 0.2 EU/dL (Up TO 0.2) 06/07/19 22:49 Ur Leukocyte Esterase Negative (Negative) 06/07/19 22:49 Urine Glucose Negative mg/dL (Negative) 06/07/19 22:49 Patient ABO/Rh A Negative 06/07/19 19:50 Antibody Screen Negative 06/07/19 19:50 Crossmatch See Detail 06/07/19 19:50
[2019-06-08] MEDS: Bisacodyl 5 MG TABEC PO (18:14)
[2019-06-08] MEDS: Docusate Sodium 100 MG CAP PO (20:07)
[2019-06-08] MEDS: Senna TAB 1 TAB PO (20:07)
[2019-06-08] MEDS: Mometasone 220 MCG 14 DOSE INHALER IH (20:49)
[2019-06-08] MEDS: Amitriptyline 25 MG TAB 75 MG PO (21:44)
[2019-06-08] MEDS: Simvastatin 20 MG TAB PO (21:44)
[2019-06-09] VITALS (9 sets, daily range): BP systolic 109–143; BP diastolic 58–88; PULSE 66–88; RESP 1–24; TEMP 36.5–36.8; O2SAT 88–97
[2019-06-09] MEDS: Albuterol/Ipratropium 3 ML UPD VIAL UPD ×2 (06:19→11:09)
[2019-06-09 07:45] LABS: Abs Immature Grans 0.07 k/cumm (0.0-0.09); Absolute Lymphocyte Count 1.76 k/cumm (1.2-3.4); Absolute Neutrophil Count 13.69 k/cumm (1.2-6.7); Eosinophils % 0.1; HCT 32.6 % (36.0-46.0); HGB 9.9 g/dL (12.0-15.5); Immature Grans % 0.4; Lymphocytes % 10.1; Mean Corp. HGB Concentration 30.4 g/dL (32.0-36.0); Mean Corpuscular Hemoglobin 22.8 pg (27.0-33.0); Mean Corpuscular Volume 74.9 fL (80-95); Mean Platelet Volume 12.3 fL (8.0-11.0); Monocytes % 10.8; Neutrophils % 78.6; Platelet Count 249 x1000/uL (130-400); RBC 4.35 m/cumm (4.00-5.20); RBC Distribution Width 18.2 % (11.7-14.6); White Blood Cell Count 17.42 k/cumm (4.4-10.8)
[2019-06-09 07:52] LABS: Absolute Eosinophil Count 0.02 k/cumm (0.0-0.7); Absolute Monocyte Count 1.88 k/cumm (0.11-0.7)
[2019-06-09 07:59] LABS: Anion Gap 10.8 mmol/L (3-11); BUN 30 mg/dL (7-18); CO2 26.2 mmol/L (21.0-32.0); CREATININE 1.16 mg/dL (0.55-1.02); Calcium 10.8 mg/dL (8.5-10.1); Chloride 104 mmol/L (98-107); Estimated GFR 46.32 (mL/min/1.73m2); Glucose 141 mg/dL (70-100); Magnesium 2.3 mg/dL (1.8-2.4); Potassium 4.3 mmol/L (3.5-5.1); Sodium 141 mmol/L (136-145)
[2019-06-09] MEDS: Senna TAB 1 TAB PO (08:03)
[2019-06-09] MEDS: Aspirin E.C. 81 MG TABEC PO (08:03)
[2019-06-09] MEDS: Docusate Sodium 100 MG CAP PO (08:03)
[2019-06-09] MEDS: Omeprazole 20 MG CAPCR 40 MG PO (08:03)
[2019-06-09] MEDS: predniSONE 20 MG TAB 40 MG PO (08:03)
[2019-06-09] MEDS: Metoprolol 50 MG TAB PO (08:03)
[2019-06-09] MEDS: Gabapentin 300 MG CAP PO ×2 (08:03→14:42)
[2019-06-09] MEDS: Insulin Aspart 300 UNITS/3 ML PEN SC ×3 (08:04→16:41)
[2019-06-09] MEDS: Cyanocobalamin 500 MCG TAB 1000 MCG PO (08:04)
[2019-06-09] MEDS: Normal Saline Flush 10 ML SYR IVP (08:05)
[2019-06-09 08:10] LABS: Anisocytosis 2+; Diff Comment Diff Reviewed; Hypochromasia 2+; Microcytosis 2+; Poikilocytes 1+; Polychromasia Present
[2019-06-09] MEDS: Mometasone 220 MCG 14 DOSE INHALER IH (10:13)
[2019-06-09 13:18] LABS: Albumin 59.2 % (55.8-66.1); Total Protein 6.9 g/dl (6.3-8.2)
--- NOTE | 2019-06-09 14:31 | DSE_ITS ---
Date of service: 06/09/19 Time of Service: 14:31 DS: Diagnosis Discharge Diagnosis (1) COPD exacerbation: Status: Acute (2) Acute on chronic anemia: Status: Acute (3) Hypercalcemia: Status: Chronic (4) GERD (gastroesophageal reflux disease): Status: Chronic (5) DVT prophylaxis: Status: Acute (6) Discharge planning issues: Status: Acute Discharge Plan Disposition Patient Disposition: HOME Condition: Improving Discharge Details Chief Complaint: SOB Clinical Impression: Acute anemia, Acute exacerbation of chronic obstructive pulmonary disease (COPD) Reason For Visit: COPD EXACERBATION,ACUTE ANEMIA Admit Date/Time: 06/07/19 19:38 Admit Provider: James Yuan Attending Provider: James Yuan Primary Care Provider: Victor Manuel Maria ED Provider: Lavonne Osuna Hospital Course Hospital Course: Jessica Gordon is a very pleasant 68 year old female with a past medical history significant for iron deficiency anemia, COPD and GERD who presented to the ED with increasing shortness of breath. She had a chest x-ray in the ED which was negative. Her labs showed no leukocytosis, her Hgb was 8.7, down from 12 previously. Her renal function appeared to be near baseline. She was found to have a COPD exacerbation and worsening anemia. She was admitted to the med/surg floor for nebulizer treatments, steroids and one unit of PRBCs. Her hemoglobin remained stable over the following days. At the time of her discharge, her Hbg was 9.9. She had a heme-negative bowel movement. She reported that her breathing was better than her baseline, she denied shortness of breath, coughing and wheezing. She was maintaining her oxygen saturation on room air in the mid 90s. She had an exercise oximetry test prior to her discharge with respiratory therapy and did not qualify for home oxygen. Consider referral for Pulmonary Rehab. She was offered a referral but would prefer to hold off for now. She will be sent home with nebulizer machine and with a prescription for DuoNebs for home use. She will taper off of prednisone. She was also noted to have B12 deficiency and hypercalcemia. She was started on Vitamin B12 and has SPEP pending to rule out multiple myeloma. She will have a follow up CBC in one week to ensure that her hemoglobin remains stable. She will follow up with her PCP as scheduled. Time including care of patient and discharge paperwork: 52 minutes Home Meds and New Rx's Prescriptions: New sennosides [Senokot] 8.6 mg Tablet 1 tab PO BID Qty: 60 RF: 0 ipratropium-albuterol 0.5 mg-3 mg(2.5 mg base)/3 mL Solution For Nebulization 3 ml UPD Q6H Qty: 30 RF: 0 polyethylene glycol 3350 17 gram Powder In Packet 17 g PO DAILY Qty: 30 RF: 0 cyanocobalamin (vitamin B-12) [Vitamin B-12] 500 mcg Tablet 1,000 mcg PO DAILY Qty: 60 RF: 0 docusate sodium [Colace] 100 mg Capsule 100 mg PO BID Qty: 60 RF: 0 prednisone 10 mg tablet 10 mg PO DAILY Qty: 20 RF: 0 Continued amitriptyline 75 mg tablet 75 mg PO QHS Qty: 90 RF: 3 albuterol sulfate [ProAir HFA] 90 mcg/actuation HFA aerosol inhaler 2 puff IH Q6H PRN (Reason: shortness of breath or wheezing) Qty: 18 RF: 4 Flovent HFA 110 mcg/actuation HFA aerosol inhaler 2 puff IH BID Qty: 12 RF: 4 aspirin [Aspir-81] 81 MG tablet,delayed release (DR/EC) 81 mg PO DAILY RF: 0 Child Mucinex Stuffy Nose-Cold 118 ML liquid 1 tsp PO Q12H PRN Qty: 1 RF: 0 spacer 1 Q6H PRN Qty: 1 RF: 0 simvastatin [Zocor] 20 mg tablet 20 mg PO HS Qty: 90 RF: 4 omeprazole 40 mg capsule,delayed release(DR/EC) 40 mg PO DAILY Qty: 90 RF: 4 metoprolol tartrate 50 mg tablet 50 mg PO BID Qty: 180 RF: 4 gabapentin 300 mg capsule 300 mg PO TID Qty: 270 RF: 4 Discharge Instructions Instructions: COPD (Chronic Obstructive Pulmonary Disease) (DC), Anemia (DC), Vitamin B12 Deficiency (GEN) Additional Instructions: Taper prednisone as follows: take 4 tablets daily x2 days, then decrease to 3 tablets daily x2 days, then 2 tablets x2 days, then 1 tablet x2 days then stop. Continue taking Vitamin B12. Take stool softeners for more regular bowel movements. Follow up blood work next week to ensure your anemia remains stable. Consider pulmonary rehab. You will be discharged home with a nebulizer machine to be used if you have shortness of breath or wheezing at home. follow up with your PCP as scheduled. Stand Alone Forms: Nursing Discharge Form Referrals: Victor Manuel Maria MD [Primary Care Provider] - 06/16/19 3:00 pm Activity:: Activity as Tolerated Equipment/Supplies:: nebulizer machine. Diet:: As Tolerated Discharge Orders Discharge Orders: Discharge Order (Routine); Ordered 06/09/19 Ordered By: Litzy Agarwal Other Ambulatory Orders: Complete Blood Count No Diff (Routine) Timeframe: 1 Week Facility: [facility] - Location: Laboratory Outpatient Ordered By: Litzy Agarwal DS: Summary Status at Discharge Functional status at discharge: independent ambulation Overall status at discharge: patient is progressing back to baseline Mental Status: mental status grossly normal Speech and Movement: speech and movement normal Mood: congruent mood Affect: normal affect Exam Narrative Exam Narrative: General: 68 year old female, A&Ox3, sitting up in the chair on room air. Pleasant and cooperative, in NAD. HEENT: Normocephalic, atraumatic, extraocular movements intact, mucous membranes moist. Neck: Supple. Cardiovascular: Regular rate and rhythm, non-tachycardic, soft systolic murmur noted at left sternal border. Respiratory: Respirations appear even and unlabored. Diminished lung sounds throughout, no wheezing or rales noted. GI: Normal active bowel sounds in all 4 quadrants, abdomen soft, nondistended, nontender on palpation. Extremities: No clubbing, cyanosis or edema. Psych Mental Status: mental status grossly normal Speech and Movement: speech and movement normal Mood: congruent mood Affect: normal affect DS: Data Vitals/I&O Vitals and I&O: Vital Signs Temperature 36.6 C 06/09/19 11:45 Temperature Source Tympanic 06/09/19 11:45 Pulse 81 06/09/19 11:45 Pulse Rhythm Regular 06/09/19 08:13 Pulse 93 H 06/07/19 20:32 Respiratory Rate 18 06/09/19 11:45 Respiratory Effort Non-Labored 06/09/19 08:13 Respiratory Depth Normal 06/09/19 08:13 Respiratory Pattern Normal 06/09/19 08:13 Blood Pressure 138/78 06/09/19 11:45 Blood Pressure Mean 79 06/07/19 20:32 Pulse Oximetry 95 06/09/19 11:45 Oxygen Delivery Method Room Air 06/09/19 11:45 Oxygen Flow Rate 0 06/09/19 11:45 Pain Level 0 06/09/19 11:45 Comment 06/09/19 03:45 Intake & Output 06/08/19 06/09/19 06/09/19 23:59 11:59 23:59 Intake Total 770 / 770 Output Total 1100 / 2850 1000 / 1600 600 / 1600 Balance -1100 / -2457 -230 / -830 -600 / -830 Weight 98.3 kg Intake: IV Oral 760 / 760 Output: Urine 1100 / 2750 1000 / 1600 600 / 1600 Other: Urine Color Yellow Yellow Yellow Urine Appearance Clear Clear Clear Urine Odor Normal Stool Occult Blood Negative Negative Stool Size Small Small Stool Characteristics Formed Soft Hard Formed Voiding Methods Toilet Toilet Toilet Data Completed and Pending Completed studies during hospitalization [Text1]: 06/07/2019 EXAM: XR CHEST 2V PA LATERAL INDICATION: cough, sob, r/o acute disease. COMPARISON: XR CHEST 2V PA LATERAL from 05/11/2018 TECHNIQUE: 2D digital imaging was performed. FINDINGS: The examination reveals evidence of COPD. Increased interstitial markings are identified. There is no evidence of an infiltrate. No evidence of a pleural effusion. Bilateral apical pleural thickening is identified. There is no evidence of a pneumothorax. Heart is not enlarged. The hilar structures, mediastinum and tracheal air column are intact. There is no acute bony abnormality. There is no soft tissue abnormality. IMPRESSION: No acute abnormality is demonstrated. Emphysematous changes involving the lungs. Labs on day of discharge: Labs from last 24 hours 06/09/19 06/09/19 06/07/19 06:45 06:45 18:14 WBC 17.42 H D RBC 4.35 Hgb 9.9 L Hct 32.6 L MCV 74.9 L MCH 22.8 L MCHC 30.4 L RDW 18.2 H Plt Count 249 MPV 12.3 H Immature Gran % 0.4 Neutrophils % 78.6 Lymphocytes % 10.1 Monocytes % 10.8 Eosinophils % 0.1 Basophils % 0.0 Absolute Neutrophils 13.69 H Absolute Lymphocytes 1.76 Absolute Monocytes 1.88 H Absolute Eosinophils 0.02 Absolute Basophils 0.00 Differential Comment Diff reviewed RBC Morphology See below Polychromasia Present Hypochromasia 2+ Poikilocytosis 1+ Anisocytosis 2+ Microcytosis 2+ Sodium 141 Potassium 4.3 Chloride 104 Carbon Dioxide 26.2 Anion Gap 10.8 BUN 30 H Creatinine 1.16 H Estimated GFR/1.73 m2 46.32 Glucose 141 H D Calcium 10.8 H Magnesium 2.3 Total Protein (PEP) 6.9 Albumin % (PEP) 59.2 Vhcau-9-Fkvsreerx (%) 4.0 Ormlx-4-Iqtqpmwqu (%) 10.7 Beta Globulins (%) 13.2 H Gamma Globulins (%) 12.9 M-Umer % Not Applicable PEP Comment See comment PFSH Medical History Anxiety (Inactive) Chronic obstructive lung disease (Inactive) Depressive disorder (Inactive) Essential hypertension (Inactive) Gastroesophageal reflux disease (Inactive) Hypercalcemia (Resolved 09/23/15) Hyperlipidemia (Inactive) Iron deficiency anemia due to chronic blood loss (Resolved 01/11/15) Morbid obesity (Inactive 12/19/14) GHISLAINE (obstructive sleep apnea) (Inactive 12/19/14) Primary insomnia (Inactive 10/14/15) Severe anemia (Resolved 12/19/14) Surgical History Cholecystectomy (05/28/73) Social History Smoking/Tobacco Use Status: Former Tobacco Use Alcohol Intake: never Drug use: Never Substance use type: does not use Do you feel safe at home: Yes Do you feel safe in your relationship?: Yes
--- NOTE | 2019-06-09 16:22 | PDOC.CMDIS ---
- If Service Date Differs Date of service: 06/09/19 Time of Service: 16:22 LACE Index Scoring Tool - Questions: Length of Stay (in days): 3 Acuity (Admit via E.D.?): Yes Comorbidities: Chronic Pulmonary Disease E.D. Visits: 1 - Answers: Total Score: 9 Risk of Readmission: Low Risk Care Management Discharge Reason for Hospitalization: COPD Exacerbation, Acute Anemia Discharge Plan: Jessica will return to her sister's house with no additional services at this time. HARISH registered her with [facility] so she has ease of accessibility to transportation going forward. Her sister will drive her home via private vehicle. She will follow up with PCP and pulminary. Patient/Family Education Needs: Review discharge instructions regarding activity levels and medications, discussion of self care needs including Ask Me Three Services Needed at Discharge: Transportation
[2019-06-10 14:50] LABS: PTH-Related Peptide <0.4 pmol/L (< or = 4.2)
== END 2019-06-09 17:17 | disposition home or self-care (01) | DRG 192 ==
LOC: ER 19:38 → MS 20:43
PROVIDERS: Admitting Provider Family Medicine; Emergency Provider Physician Assistant; PCP Family Medicine; Visit Provider Internal Medicine
DX: J44.1 Chronic obstructive pulmonary disease with (acute) exacerbation (principal); D50.9 Iron deficiency anemia, unspecified; K21.9 Gastro-esophageal reflux disease without esophagitis; R73.9 Hyperglycemia, unspecified; E83.52 Hypercalcemia; I10 Essential (primary) hypertension; F32.9 Major depressive disorder, single episode, unspecified; E78.5 Hyperlipidemia, unspecified; G47.33 Obstructive sleep apnea (adult) (pediatric)
CPT/HCPCS: 36415; 36430; 80048; 80053; 85027; 86850; 86900; 86901; 86920; 93005; 94618; 94640; 99223; 99232; 99239; 99285; 71046; 81003; 82397; 82607; 82728; 82746; 83540; 83550; 83735; 83880; 84165; 84443; 84484; 85025; 85045; 85610; 85730; 93010; J2930; J7512; J7613; J7620; P9016

== ENCOUNTER 2019-06-16 07:45 | Outpatient (CLI) | payer MEDICARE, SELFPAY ==
[2019-06-16 08:25] LABS: HCT 34.9 % (36.0-46.0); HGB 10.3 g/dL (12.0-15.5); Mean Corp. HGB Concentration 29.5 g/dL (32.0-36.0); Mean Corpuscular Hemoglobin 22.2 pg (27.0-33.0); Mean Corpuscular Volume 75.2 fL (80-95); Mean Platelet Volume 11.3 fL (8.0-11.0); Platelet Count 255 x1000/uL (130-400); RBC 4.64 m/cumm (4.00-5.20); RBC Distribution Width 18.1 % (11.7-14.6); White Blood Cell Count 10.39 k/cumm (4.4-10.8)
== END 2019-06-16 08:05 ==
PROVIDERS: PCP Family Medicine; Visit Provider Nurse Practitioner
DX: D64.9 Anemia, unspecified (principal)
CPT/HCPCS: 36415; 85027

== ENCOUNTER 2019-07-23 18:28 | Emergency (ER) | payer MEDICARE, SELFPAY ==
[2019-07-23 18:30] VITALS: BP 149/108; PULSE 70; TEMP 36.1; O2SAT 96
--- NOTE | 2019-07-23 18:48 | W.ED.GENAD ---
Discharge Plan Disposition Patient Disposition: HOME Condition: Good Discharge Details Chief Complaint: SOB Clinical Impression: Bronchitis, COPD exacerbation Primary Care Provider: Victor Manuel Maria ED Provider: Oral Dewitt Home Meds and New Rx's Prescriptions: New ipratropium-albuterol 0.5 mg-3 mg(2.5 mg base)/3 mL solution for nebulization 3 ml IH Q6H Qty: 90 RF: 0 prednisone 50 MG tablet 50 mg PO DAILY Qty: 5 RF: 0 No Action amitriptyline 75 mg tablet 75 mg PO QHS Qty: 90 RF: 3 albuterol sulfate [ProAir HFA] 90 mcg/actuation HFA aerosol inhaler 2 puff IH Q6H PRN (Reason: shortness of breath or wheezing) Qty: 18 RF: 4 Flovent HFA 110 mcg/actuation HFA aerosol inhaler 2 puff IH BID Qty: 12 RF: 4 ferrous sulfate 325 mg (65 mg iron) tablet 325 mg PO BID Qty: 90 RF: 1 cyanocobalamin (vitamin B-12) [Vitamin B-12] 500 mcg tablet 1,000 mcg PO DAILY Qty: 60 RF: 11 sennosides [Senokot] 8.6 mg tablet 8.6 mg PO BID Qty: 60 RF: 3 aspirin [Aspir-81] 81 MG tablet,delayed release (DR/EC) 81 mg PO DAILY RF: 0 Child Mucinex Stuffy Nose-Cold 118 ML liquid 1 tsp PO Q12H PRN Qty: 1 RF: 0 spacer 1 Q6H PRN Qty: 1 RF: 0 simvastatin [Zocor] 20 mg tablet 20 mg PO HS Qty: 90 RF: 4 omeprazole 40 mg capsule,delayed release(DR/EC) 40 mg PO DAILY Qty: 90 RF: 4 metoprolol tartrate 50 mg tablet 50 mg PO BID Qty: 180 RF: 4 gabapentin 300 mg capsule 300 mg PO TID Qty: 270 RF: 4 docusate sodium [Colace] 100 mg capsule 100 mg PO BID Qty: 60 RF: 0 ipratropium-albuterol 0.5 mg-3 mg(2.5 mg base)/3 mL solution for nebulization 3 ml IH Q6H PRN (Reason: shortness of breath or wheezing) Qty: 90 RF: 0 ipratropium-albuterol 0.5 mg-3 mg(2.5 mg base)/3 mL Solution For Nebulization 3 ml UPD Q6H Qty: 30 RF: 0 polyethylene glycol 3350 17 gram Powder In Packet 17 g PO DAILY Qty: 30 RF: 0 prednisone 10 mg tablet 10 mg PO DAILY Qty: 20 RF: 0 Discharge Instructions Instructions: Acute Bronchitis (ED), COPD (Chronic Obstructive Pulmonary Disease) (ED) Additional Instructions: At this time there is no evidence of pneumonia on your chest x-ray. I suspect that your symptoms are from acute bronchitis and COPD exacerbation. Please take the steroid as directed. Please take the DuoNeb breathing treatments every 4 hours for the next 2 days as directed. If you notice any worsening of your symptoms, or any new symptoms such as vomiting, diarrhea, fever, chills, shortness of breath, chest pain, numbness, weakness, or fainting , please return immediately to the emergency department for reevaluation. Please follow up with your primary care provider as soon as possible for reassessment and reevaluation. As always, it was a pleasure participating in your medical care today. Referrals: Victor Manuel Maria MD [Primary Care Provider] - Medical Decision Making This is a 69-year-old female with a past medical history of COPD, who was recently admitted less than 2 months ago for COPD exacerbation and acute on chronic anemia. At the time of admission her hemoglobin was improved with 1 unit of PRBCs, Hemoccults were negative. She has not been on any steroids or antibiotics for quite a few weeks. She presents today for evaluation of shortness of breath. She states that for the last few days she has had a recurrence of her cough with productive green sputum, mild chest heaviness, mild shortness of breath. Her symptoms are notably improved with breathing treatments. She denies any fevers but does admit to occasional chills. She denies any chest tightness or actual chest pain. She denies any numbness tingling weakness or arm neck or shoulder pain. She does have a family history of cardiac disease but no personal history of cardiac disease. Physical exam is notably unremarkable, oxygen saturations are normal. Lungs are also relatively benign with no signs of significant wheezes. With no evidence of hypoxemia, I do not see an indication for immediate admission based on the current clinical presentation. We will evaluate for atypical cardiac etiology which I feel unlikely as I feel her symptoms are clinically consistent with COPD. We will get a chest x-ray to rule out pneumonia, give breathing treatment steroids and reassess. 7:55 PM Upon reassessment the patient is feeling much better, her shortness of breath is resolved. She shows no evidence of hypoxemia tachycardia, fever, or elevated white count. Hemoglobin is notably increased from her last visit. Vital signs remain notably stable. Troponin EKG unremarkable. Signs and symptoms are clinically consistent with mild bronchitis mild COPD exacerbation. With no hypoxemia, completely resolved symptomatology, no evidence of fever see no indication for antibiotics or admission at this time. We will give duo nebs for home use, as well as a 5-day dose of steroids. Discussed red flags which to return the importance of close follow-up. I have extensively reviewed the treatment plan and discharge instructions with the patient and their family. I have addressed all patient concerns at this time. The patient and family was made aware of what symptoms to monitor for that would warrant a return to the emergency department. Discussed the plan with the patient and family, they demonstrate verbal understanding and agreement with our assessment and plan at this time. EKG 18: 53 Rate 88, intervals normal, sinus rhythm, no significant ST elevations or depressions, no T wave inversions, no evidence of STEMI. There is less than a 1 mm elevation noted in V1, however upon review of prior EKG from 06/08/2019 it demonstrates near identical findings no acute changes. FINDINGS: Lungs: Unremarkable. No consolidation. Pleural space: Unremarkable. No pleural effusion. No pneumothorax. Heart/Mediastinum: Unremarkable. No cardiomegaly. Bones/joints: Unremarkable. IMPRESSION: No acute findings. Thank you for allowing us to participate in the care of your patient. Dictated and Authenticated by: Miguel Gonzalez MD 07/23/2019 7:27 PM Eastern Time ([place] & [place]) HPI General Date/Time Provider Initiated Documentation: 07/23/19 18:34. HPI Narrative: 69-year-old female with a past medical history of COPD chronic iron deficiency anemia, anxiety, who presents today for evaluation of shortness of breath and cough. Patient was recently admitted less than 2 months ago for COPD exacerbation in conjunction with acute slight worsening of her anemia. She has been on no recent antibiotics or steroids since then. Patient states that for the last week she has had return of her cough with productive green sputum, additionally she has had mild shortness of breath, mild chest heaviness worse with movement and activity. She does admit to occasional chills but denies fever. She denies any arm neck or shoulder pain. She denies any hemoptysis. She has been taking her breathing treatments at home which have notably improved her symptoms. She states that her symptoms feel like the onset of her last episode. She denies any other modifying factors. She denies any history of personal cardiac disease but does admit to a family history of cardiac disease. She has no other complaints at this time. Related Data Home Medications Medication Instructions Recorded Confirmed aspirin [Aspir-81] 81 mg PO DAILY tab-cap 01/19/13 06/16/19 Child Mucinex Stuffy Nose-Cold 1 tsp PO Q12H PRN #1 bot 10/05/15 06/16/19 simvastatin 20 mg tablet 20 mg PO HS #90 tab 07/29/18 06/16/19 metoprolol tartrate 50 mg tablet 50 mg PO BID #180 tab-cap 07/31/18 06/16/19 omeprazole 40 mg capsule,delayed 40 mg PO DAILY #90 tab-cap 07/31/18 06/16/19 release gabapentin 300 mg capsule 300 mg PO TID #270 tab-cap 08/05/18 06/16/19 albuterol sulfate 90 mcg/actuation 2 puff IH Q6H PRN #18 gm 10/07/18 06/16/19 aerosol inhaler amitriptyline 75 mg tablet 75 mg PO QHS #90 tab 12/18/18 06/16/19 fluticasone propionate 110 2 puff IH BID #12 gm 02/10/19 06/16/19 mcg/actuation HFA aerosol inhaler ipratropium-albuterol 3 ml UPD Q6H #30 ml 06/09/19 06/16/19 polyethylene glycol 3350 17 g PO DAILY #30 ea 06/09/19 06/16/19 prednisone 10 mg PO DAILY #20 tab 06/09/19 06/16/19 cyanocobalamin (vitamin B-12) 500 1,000 mcg PO DAILY #60 tab 06/16/19 06/16/19 mcg tablet ferrous sulfate 325 mg (65 mg 325 mg PO BID #90 tab 06/16/19 06/16/19 iron) tablet sennosides 8.6 mg tablet 8.6 mg PO BID #60 tab 06/16/19 06/16/19 docusate sodium 100 mg capsule 100 mg PO BID #60 cap 07/03/19 ipratropium-albuterol 0.5 mg-3 3 ml IH Q6H PRN #90 ml 07/03/19 mg(2.5 mg base)/3 mL nebulization soln ipratropium-albuterol 3 ml IH Q6H #90 ml 07/23/19 prednisone 50 mg PO DAILY #5 tab 07/23/19 Previous Rx's Medication Instructions Recorded simvastatin 20 mg tablet 20 mg PO HS #90 tab 07/29/18 metoprolol tartrate 50 mg tablet 50 mg PO BID #180 tab-cap 07/31/18 omeprazole 40 mg capsule,delayed 40 mg PO DAILY #90 tab-cap 07/31/18 release gabapentin 300 mg capsule 300 mg PO TID #270 tab-cap 08/05/18 albuterol sulfate 90 mcg/actuation 2 puff IH Q6H PRN #18 gm 10/07/18 aerosol inhaler amitriptyline 75 mg tablet 75 mg PO QHS #90 tab 12/18/18 fluticasone propionate 110 2 puff IH BID #12 gm 02/10/19 mcg/actuation HFA aerosol inhaler ipratropium-albuterol 3 ml UPD Q6H #30 ml 06/09/19 polyethylene glycol 3350 17 g PO DAILY #30 ea 06/09/19 prednisone 10 mg PO DAILY #20 tab 06/09/19 cyanocobalamin (vitamin B-12) 500 1,000 mcg PO DAILY #60 tab 06/16/19 mcg tablet ferrous sulfate 325 mg (65 mg 325 mg PO BID #90 tab 06/16/19 iron) tablet sennosides 8.6 mg tablet 8.6 mg PO BID #60 tab 06/16/19 docusate sodium 100 mg capsule 100 mg PO BID #60 cap 07/03/19 ipratropium-albuterol 0.5 mg-3 3 ml IH Q6H PRN #90 ml 07/03/19 mg(2.5 mg base)/3 mL nebulization soln ipratropium-albuterol 3 ml IH Q6H #90 ml 07/23/19 prednisone 50 mg PO DAILY #5 tab 07/23/19 Allergies Allergy/AdvReac Type Severity Reaction Status Date / Time hydrocodone [Hydrocodone] AdvReac Intermediate NAUSEA Unverified 07/23/19 18:38 General Stated Complaint: SOB TIANA: 2 Review of Systems All systems reviewed & are unremarkable except as noted in HPI and below PFSH Medical History (Updated 06/17/19 @ 08:45 by Victor Manuel Maria MD) Anxiety (Inactive) Chronic obstructive lung disease (Inactive) Depressive disorder (Inactive) Essential hypertension (Inactive) Gastroesophageal reflux disease (Inactive) Hypercalcemia (Resolved 09/23/15) Hyperlipidemia (Inactive) Iron deficiency anemia due to chronic blood loss (Resolved 01/11/15) Morbid obesity (Inactive 12/19/14) GHISLAINE (obstructive sleep apnea) (Inactive 12/19/14) Primary insomnia (Inactive 10/14/15) Severe anemia (Resolved 12/19/14) Surgical History (Updated 06/17/19 @ 08:45 by Victor Manuel Maria MD) Cholecystectomy (05/28/73) Status post cholecystectomy (Inactive) Social History Smoking/Tobacco Use Status: Former Tobacco Use Alcohol Intake: never Drug use: Never Substance use type: does not use Do you feel safe at home: Yes Do you feel safe in your relationship?: Yes Exam Narrative Exam Narrative: 1.Const: Well-nourished, Well-developed, appearing stated age 2.Eyes: PERRL, no conjunctival injection, and symmetrical lids. 3.ENT: Atraumatic external nose and ears. Moist MM. Neck: Symmetric, trachea midline, No thyromegaly. 4.CVS: +S1/S2, No murmurs or gallops. Peripheral pulses 2+ and equal in all extremities. Brisk capillary refill in all extremities. 5.RESP: Unlabored respiratory effort. Clear to auscultation bilaterally. No wheezes rales or rhonchi 6.GI: Soft, Nontender/Nondistended, No hepatosplenomegaly. No guarding or rebound. 7.MSK: Normocephalic/Atraumatic, Extremities w/o deformity or ttp No cyanosis or clubbing, Normal movement of all extremities. No calf tenderness. 8.Skin: Warm, Dry. No rashes or lesions. 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 Sensation grossly intact, no focal neurologic deficits. 10.Psych: (AAO) x3. Appropriate mood and affect Course Vital Signs Vital signs: Vital Signs Temperature 36.1 C L 07/23/19 18:30 Pulse 70 07/23/19 18:30 Blood Pressure 149/108 H 07/23/19 18:30 Pulse Oximetry 96 07/23/19 18:30 Temperature 36.1 C L 07/23/19 18:30 Temperature Source Skin 07/23/19 18:30 Pulse 70 07/23/19 18:30 Respiratory Effort 07/23/19 18:36 Blood Pressure 149/108 H 07/23/19 18:30 Blood Pressure Position Sitting 07/23/19 18:30 Pulse Oximetry 96 07/23/19 18:30 Oxygen Delivery Method Room Air 07/23/19 18:30 Oxygen Flow Rate 0 07/23/19 18:30 Pain Level 8 07/23/19 18:30 Comment 07/23/19 18:30
[2019-07-23 19:08] LABS: BE (Venous) 0.7 mmol/L (-3-3); HCO3 (Venous) 25 mmol/L (22-28); O2 Sat (Venous) 81 % (70-80); TCO2 (Venous) 23 mmol/L (22-29); pCO2 (Venous) 39 mm/Hg (34-47); pH (Venous) 7.42 (7.32-7.43); pO2 (Venous) 46 mm/Hg (28-44)
[2019-07-23 19:11] LABS: Abs Immature Grans 0.02 k/cumm (0.0-0.09); Absolute Basophil Count 0.05 k/cumm (0.0-0.2); Absolute Eosinophil Count 0.58 k/cumm (0.0-0.7); Absolute Lymphocyte Count 1.84 k/cumm (1.2-3.4); Absolute Monocyte Count 1.19 k/cumm (0.11-0.7); Absolute Neutrophil Count 6.07 k/cumm (1.2-6.7); Basophils % 0.5; Eosinophils % 5.9; HCT 35.3 % (36.0-46.0); HGB 11.7 g/dL (12.0-15.5); Immature Grans % 0.2; Lymphocytes % 18.9; Mean Corp. HGB Concentration 33.1 g/dL (32.0-36.0); Mean Corpuscular Volume 81.3 fL (80-95); Monocytes % 12.2; Neutrophils % 62.3; Platelet Count 188 x1000/uL (130-400); RBC 4.34 m/cumm (4.00-5.20); RBC Distribution Width 22.7 % (11.7-14.6); White Blood Cell Count 9.75 k/cumm (4.4-10.8)
--- NOTE | 2019-07-23 19:14 | DI.RAD_ITS ---
EXAM: XR CHEST 2V PA LATERAL INDICATION: cough, sob, copd. COMPARISON: XR CHEST 2V PA LATERAL from 06/07/2019 TECHNIQUE: 2D digital imaging was performed. FINDINGS: Heart size and pulmonary vasculature are within normal limits. The lungs are clear. No pleural effu christiano or pneumothorax is identified. Age-appropriate degenerative changes are seen in the spine. IMPRESSION: No acute pulmonary process.
[2019-07-23] MEDS: Albuterol/Ipratropium 3 ML UPD VIAL 9 ML UPD (19:22)
[2019-07-23] MEDS: methylPREDNISolone SUCC 125 MG VIAL IVP (19:22)
--- NOTE | 2019-07-23 19:28 | DI.VRAD_ITS ---
PROCEDURE INFORMATION: Exam: XR Chest, 2 Views Exam date and time: 07/23/2019 7:16 PM Age: 69 years old Clinical history: Cough and shortness of breath and other: Copd TECHNIQUE: Imaging protocol: XR of the chest Views: 2 views. COMPARISON: CR XR CHEST 2V PA LATERAL 06/07/2019 6:51 PM FINDINGS: Lungs: Unremarkable. No consolidation. Pleural space: Unremarkable. No pleural effusion. No pneumothorax. Heart/Mediastinum: Unremarkable. No cardiomegaly. Bones/joints: Unremarkable. IMPRESSION: No acute findings. Dictated and Authenticated by: Miguel Gonzalez MD. Ordering:DAYSI Mixon MD
[2019-07-23 19:35] LABS: ALT 20 U/L (14-59); AST 21 U/L (15-37); Albumin 3.7 g/dL (3.4-5.0); Alkaline Phosphatase 140 U/L (46-116); Anion Gap 9.4 mmol/L (3-11); BUN 14 mg/dL (7-18); Bilirubin, Total 0.5 mg/dL (0.2-1.0); CO2 24.6 mmol/L (21.0-32.0); CREATININE 0.95 mg/dL (0.55-1.02); Chloride 104 mmol/L (98-107); Estimated GFR 58.16 (mL/min/1.73m2); Glucose 133 mg/dL (74-106); Potassium 3.9 mmol/L (3.5-5.1); Sodium 138 mmol/L (136-145); TSH (W/Ref FT4) 1.69 uIU/mL (0.36-3.74); Total Protein 7.4 g/dL (6.4-8.2); Troponin I < 0.05 ng/Ml (<0.06)
[2019-07-23 19:45] VITALS: PULSE 96; O2SAT 92
[2019-07-23 20:06] VITALS: BP 184/160; PULSE 96; TEMP 36.5; O2SAT 92
[2019-07-23 20:10] VITALS: BP 184/160; PULSE 96; TEMP 36.5; O2SAT 92
== END 2019-07-23 20:10 | disposition home or self-care (01) ==
PROVIDERS: Emergency Provider Student in an Organized Health Care Education/Training Program; PCP Family Medicine
DX: J44.0 Chronic obstructive pulmonary disease with (acute) lower respiratory infection (principal); J20.9 Acute bronchitis, unspecified; J44.1 Chronic obstructive pulmonary disease with (acute) exacerbation; J44.9 Chronic obstructive pulmonary disease, unspecified; Z87.891 Personal history of nicotine dependence; I10 Essential (primary) hypertension
CPT/HCPCS: 36415; 80053; 82805; 87449; 93005; 94640; 96374; 99285; 71046; 84443; 84484; 85025; 93010; J2930; J7620

== ENCOUNTER 2019-10-26 08:06 | Outpatient (CLI) | payer MEDICARE, SELFPAY ==
[2019-10-26 08:42] LABS: HCT 39.5 % (36.0-46.0); HGB 13.9 g/dL (12.0-15.5); Mean Corp. HGB Concentration 35.2 g/dL (32.0-36.0); Mean Corpuscular Hemoglobin 31.2 pg (27.0-33.0); Mean Corpuscular Volume 88.8 fL (80-95); Mean Platelet Volume 11.2 fL (8.0-11.0); Platelet Count 180 x1000/uL (130-400); RBC 4.45 m/cumm (4.00-5.20); RBC Distribution Width 14.3 % (11.7-14.6); White Blood Cell Count 7.13 k/cumm (4.4-10.8)
== END 2019-10-26 08:26 ==
PROVIDERS: PCP Nurse Practitioner; Visit Provider Family Medicine
DX: D64.9 Anemia, unspecified (principal)
CPT/HCPCS: 36415; 85027

== ENCOUNTER 2020-03-30 02:06 | Outpatient (CLI) | payer MEDICARE, SELFPAY ==
--- NOTE | 2020-03-30 13:22 | DI.MAMMO_ITS ---
EXAM: MG MAMMO SCREENING CLINICAL HISTORY: screening,z12.39 TECHNIQUE: Bilateral full field digital CC and MLO mammographic images were obtained with 3D tomosyn thesis and utilizing computer aided detection (CAD). COMPARISON: Available for comparison. FINDINGS: Masses/Architectural Distortion: Stable right breast nodule. No suspicious masses or architectural d istortion is identified. Microcalcifications: No suspicious pleomorphic-type are seen. Skin Thickening/Nipple Retraction: None. IMPRESSION: 1. No significant interval change with no specific features of malignancy noted. 2. Unless there is more urgent need, screening mammography is recommended, as per [employer] guidelines. BI-RADS Category 1 - Negative Breast Density - Category B - Scattered areas of fibroglandular density A negative radiographic report should not delay biopsy if a dominant or clinically suspicious mass is present. Up to ten percent of cancers are not identified on mammography. A negative report may reinforce clinical impression. Adenosis and dense breasts may obscure an underlying neoplasm. False positive reports average 6 to 10%. Patient will receive a letter notifying them of these results.
== END 2020-03-30 02:26 ==
PROVIDERS: PCP Nurse Practitioner; Visit Provider Nurse Practitioner
DX: Z12.31 Encounter for screening mammogram for malignant neoplasm of breast (principal); R92.2 Inconclusive mammogram
CPT/HCPCS: 77063; 77067

== ENCOUNTER 2020-09-03 10:45 | Outpatient (CLI) | payer MEDICARE, SELFPAY ==
--- NOTE | 2020-09-03 10:45 | DI.RAD_ITS ---
EXAM: XR HAND RT COMPLETE XR wrist RT complete CLINICAL HISTORY: fall, hand and wrist injury. TECHNIQUE: 2D digital imaging was performed. COMPARISON: No exams were available for comparison FINDINGS: BONES: No acute fracture is present. No bony destructive lesion is seen. JOINTS: No dislocation present. SOFT TISSUE: Normal. IMPRESSION: No acute fracture or dislocation of the right wrist or hand. DATA REPOSITORY: RADIATION DOSE DELIVERED:
--- NOTE | 2020-09-03 11:12 | DI.VRAD_ITS ---
PROCEDURE INFORMATION: Exam: XR Right Hand Exam date and time: 09/03/2020 10:53 AM Age: 70 years old Clinical indication: Other: Fall, hand and wrist injury TECHNIQUE: Imaging protocol: XR Right hand. Views: 3 or more views. COMPARISON: No relevant prior studies available. FINDINGS: Bones/joints: Normal. Soft tissues: Normal. IMPRESSION: No acute findings. Dictated and Authenticated by: Abhay Joyce MD. Ordering:JITENDRA Leger MD
--- NOTE | 2020-09-03 11:21 | DI.VRAD_ITS ---
PROCEDURE INFORMATION: Exam: XR Right Wrist Exam date and time: 09/03/2020 10:53 AM Age: 70 years old Clinical indication: Other: Fall, hand and wrist injury TECHNIQUE: Imaging protocol: XR Right wrist. Views: 3 or more views. COMPARISON: CR XR HAND RT COMPLETE 09/03/2020 10:57 AM FINDINGS: Bones/joints: No fracture. Cystic degenerative changes in the scaphoid and capitate carpal bones. Soft tissues: Soft tissue swelling. IMPRESSION: No fracture. Dictated and Authenticated by: Abhay Joyce MD. Ordering:JITENDRA Leger MD
== END 2020-09-03 11:05 ==
PROVIDERS: PCP Nurse Practitioner; Visit Provider Physician Assistant
DX: M25.531 Pain in right wrist (principal); M79.641 Pain in right hand
CPT/HCPCS: 73110; 73130

== ENCOUNTER 2020-10-14 11:01 | Outpatient (CLI) | payer MEDICARE, SELFPAY ==
--- NOTE | 2020-10-14 10:30 | DI.RAD_ITS ---
EXAM: XR KNEE RT 4V AP,LAT,ELISABETH,PAT CLINICAL HISTORY: knee pain s/p fall. TECHNIQUE: 2D digital imaging was performed. COMPARISON: No exams were available for comparison FINDINGS: BONES: No acute fracture is present. No bony destructive lesion is seen. JOINTS: The knee is normally aligned. No joint effusion is seen. Mild periarticular spurring. No sig nificant joint space narrowing. SOFT TISSUE: Normal. IMPRESSION: Mild degenerative changes. DATA REPOSITORY: RADIATION DOSE DELIVERED:
== END 2020-10-14 11:02 | disposition home or self-care (01) ==
LOC: DIORS 11:01
PROVIDERS: PCP Nurse Practitioner; Referring Provider Physician Assistant; Visit Provider Student in an Organized Health Care Education/Training Program
DX: M17.11 Unilateral primary osteoarthritis, right knee (principal); G56.01 Carpal tunnel syndrome, right upper limb; J44.9 Chronic obstructive pulmonary disease, unspecified; W19.XXXD Unspecified fall, subsequent encounter
CPT/HCPCS: 99214; 73564

== ENCOUNTER 2020-10-24 03:51 | Outpatient (CLI) | payer MEDICARE, SELFPAY ==
[2020-10-24 12:33] LABS: HCT 42.8 % (36.0-46.0); HGB 14.5 g/dL (11.2-15.7); MCH 30.1 pg (27.0-33.0); MCHC 33.9 % (32.0-36.0); MCV 88.8 fL (80-95); MPV 13.5 fL (8.0-11.0); RBC 4.82 10^6/uL (3.93-5.22); RDW 14.6 % (11.7-14.6); RDW-SD 47.1 fL; WBC 11.28 10^3/uL (4.4-10.8)
[2020-10-24 12:42] LABS: CREATININE 0.9 mg/dL (0.55-1.02); Calculated LDL 59 mg/dL (<100); Cholesterol 153 mg/dL (<200); HDL Cholesterol 74 mg/dL (40-60); Platelet Count 202 10^3/uL (130-400); Triglyceride 100 mg/dL (<150)
== END 2020-10-24 03:52 | disposition home or self-care (01) ==
LOC: LOS 03:51
PROVIDERS: PCP Nurse Practitioner; Visit Provider Nurse Practitioner
DX: I10 Essential (primary) hypertension (principal); E78.5 Hyperlipidemia, unspecified; J43.9 Emphysema, unspecified; E66.01 Morbid (severe) obesity due to excess calories
CPT/HCPCS: 36415; 80061; 85027; 82565

== ENCOUNTER 2020-10-28 01:58 | Outpatient (CLI) | payer MEDICARE, SELFPAY ==
[2020-10-28 12:44] LABS: Abs Immature Grans 0.02 10^3/uL (0.0-0.06); Absolute Basophil Count 0.08 10^3/uL (0.0-0.2); Absolute Eosinophil Count 0.45 10^3/uL (0.0-0.7); Absolute Lymphocyte Count 2.44 10^3/uL (1.2-3.4); Absolute Monocyte Count 1.04 10^3/uL (0.1-0.8); Absolute Neutrophil Count 4.78 10^3/uL (1.2-6.7); Basophils % 0.9; Eosinophils % 5.1; HCT 38.2 % (36.0-46.0); HGB 13.1 g/dL (11.2-15.7); Immature Grans % 0.2; Lymphocytes % 27.7; MCH 30.5 pg (27.0-33.0); MCHC 34.3 % (32.0-36.0); MCV 88.8 fL (80-95); MPV 12.9 fL (8.0-11.0); Monocytes % 11.8; Neutrophils % 54.3; Nucleated RBC 0 %; Platelet Count 166 10^3/uL (130-400); RDW 14.6 % (11.7-14.6); WBC 8.81 10^3/uL (4.4-10.8)
== END 2020-10-28 01:59 | disposition home or self-care (01) ==
LOC: LOS 01:58
PROVIDERS: PCP Nurse Practitioner; Visit Provider Nurse Practitioner
DX: D72.829 Elevated white blood cell count, unspecified (principal)
CPT/HCPCS: 36415; 85025

== ENCOUNTER 2020-11-01 06:13 | Day surgery (SDC) | payer MEDICARE, SELFPAY ==
[2020-11-01 06:55] VITALS: BP 129/82; PULSE 53; RESP 18; TEMP 36.7; O2SAT 95
--- NOTE | 2020-11-01 07:22 | PDOC.DSDIS_ITS ---
Discharge Plan Disposition Patient Disposition: HOME Condition: Good Discharge Details Reason For Visit: Right Carpal Tunnel Syndrome Attending Provider: Wayne Saldana Primary Care Provider: Ronel Oliver Home Meds and New Rx's Prescriptions: New acetaminophen 500 mg tablet 500 mg PO Q6H PRN PRN (Reason: pain) Qty: 40 RF: 3 ibuprofen 600 mg tablet 600 mg PO TID PRN (Reason: pain) Qty: 30 RF: 3 tramadol 50 mg tablet 50 mg PO Q8H PRNQty: 3 RF: 0 Continued lisinopril 10 mg tablet 10 mg PO DAILY Qty: 30 RF: 0 ferrous sulfate 325 mg (65 mg iron) tablet 325 mg PO DAILY Qty: 90 RF: 3 trazodone 50 mg tablet 50 mg PO QHS PRN (Reason: sleep) Qty: 120 RF: 4 cyanocobalamin (vitamin B-12) [Vitamin B-12] 500 mcg tablet 1,000 mcg PO DAILY Qty: 60 RF: 11 Flovent HFA 110 mcg/actuation HFA aerosol inhaler 2 puff IH BID Qty: 12 RF: 4 polyethylene glycol 3350 [Miralax] 17 gram/dose powder 17 g PO DAILY PRNRF: 0 Shingrix (PF) 50 mcg/0.5 mL suspension for reconstitution 0.5 ml IM ONCE Qty: 1 RF: 0 aspirin [Aspir-81] 81 MG tablet,delayed release (DR/EC) 81 mg PO DAILY RF: 0 spacer 1 Q6H PRN Qty: 1 RF: 0 sennosides [Senokot] 8.6 mg tablet 8.6 mg PO BID Qty: 60 RF: 3 gabapentin 300 mg capsule 300 mg PO TID Qty: 270 RF: 4 ipratropium-albuterol 0.5 mg-3 mg(2.5 mg base)/3 mL solution for nebulization 3 ml IH Q6H PRN (Reason: copd) Qty: 180 RF: 3 albuterol sulfate [ProAir HFA] 90 mcg/actuation HFA aerosol inhaler 2 puff IH Q6H PRN (Reason: shortness of breath or wheezing) Qty: 18 RF: 4 docusate sodium [Colace] 100 mg capsule 100 mg PO BID Qty: 60 RF: 4 metoprolol tartrate 50 mg tablet 50 mg PO BID Qty: 180 RF: 4 omeprazole 40 mg capsule,delayed release(DR/EC) 40 mg PO DAILY Qty: 90 RF: 2 simvastatin [Zocor] 20 mg tablet 20 mg PO HS Qty: 90 RF: 4 Discharge Instructions Stand Alone Forms: Shana Tapia Tunnel Release Referrals: Wayne Saldana MD [ [facility] STAFF PHYSICIAN] - Activity:: Elevate Remove Dressings/Wound Care:: 48 hours Shower/Bathe:: 48 hours Diet:: As Tolerated Discharge Orders Discharge Orders: Discharge Order (Routine); Ordered 11/01/20 Ordered By: Wayne Saldana DS: Diagnosis Discharge Diagnosis (1) Acute carpal tunnel syndrome of right wrist: Status: Acute
[2020-11-01] MEDS: Lactated Ringers 1,000 ML 80 ML IV (07:27)
[2020-11-01] MEDS: ceFAZolin 2 GM/50 ML BAG IVPB (07:28)
[2020-11-01] MEDS: Sodium Bicarbonate 50 MEQ/50 ML VIAL (07:38)
[2020-11-01 08:24] VITALS: BP 175/78; PULSE 60; RESP 18; TEMP 36.3; O2SAT 95
--- NOTE | 2020-11-01 09:40 | ROE_ITS ---
Date of service: 11/01/20 Time of Service: 07:46 Operative Note Operative Note DATE OF PROCEDURE: 11/01/20 PRE-OP DIAGNOSIS: Right Carpal Tunnel Syndrome POST-OP DIAGNOSIS: same PROCEDURE: Right Endoscopic Carpal Tunnel Release SURGEON: Wayne Saldana Refer to Anesthesia Record ESTIMATED BLOOD LOSS: 0 PATHOLOGY: none sent TOURNIQUET TIME: 6 COMPLICATIONS: None Patient was transported to: same day Patient's condition: stable Indications: I have seen Jessica in clinic for symptoms of carpal tunnel syndrome after a fall. The numbness, tingling, and pain limited function. Clinical exam findings confirmed the diagnosis of carpal tunnel syndrome. Nonoperative measures such as bracing, time, activity modifications had been tried but disability and pain persisted. I discussed carpal tunnel release with the patient. I reviewed the risks of the procedure to include, but not limited to, bleeding, infection, pain, stiffness, incomplete release, damage to nerves or vessels, persistent numbness, recurrence. Despite these risks, the patient elected to proceed. Findings: There was tightened carpal tunnel. This was dilated and released successfully with the endoscopic with increased space within the tunnel. The antebrachial fascia was released proximally freeing the median nerve at the w rist. Procedure Description: Jessica was greeted in the preoperative holding area where the correct side was identified and marked. The consent was reviewed with the patient and signed. The history and physical was updated. All questions were answered. Jessica was taken back to the operating room. The patient was placed into the supine position on the operating room table with the right arm on an arm board. A nonsterile tourniquet was placed high onto the arm. All bony prominences were well padded. Prophylactic antibiotics in the form of Cefazolin were administered. The right arm was then prepped with Chloraprep and draped in a standard fashion with stockinette and extremity drape. A timeout to confirm correct identity, side and site, procedure, allergies, anesthesia, and medical concerns was performed. The surgical site was marked in the volar wrist creases in line with the radial border of the fourth ray. This area was anesthetized with approximately 6cc of 1% Lidocaine. The limb was then exsanguinated with an Esmarch. The skin was incised with a 15 blade, approximately 1cm. The skin only was cut and the deeper tissue was dissected bluntly with a tenotomy scissor, avoiding passing nerve and venous structures. The fascia was penetrated and opened bluntly. A two-prong skin hook was placed under this proximal fascial edge. A series of hamate finders were used to identify and dilate the carpal tunnel. Synovial elevator was used to free synovial attachments to the underside of the transverse carpal ligament. My thumb was kept in the palm to gold the distal extent of the carpal tunnel and correctly position the hand. The Microaire endoscope was inserted without difficulty and without resistance. Excellent visualization showed horizontally running fibers of the transverse carpal ligament (TCL). The distal extent of the TCL was visualized and the end of the scope palpated with the thumb. The blade was elevated and withdrawn from distal to proximal. The TCL was split into two flaps. The endoscope was reinserted to confirm complete release and any remnant ligament was incised. The scope was withdrawn and the proximal aspect of the carpal tunnel was grossly inspected and appeared release with the median nerve visible. The antebrachial fascia at the level of the wrist was then freed from the overlying skin and then the underlying median nerve with blunt dissection. This was transected longitudinally for about 3cm proximal to the wrist incision. The wound was then irrigated with easy flow of irrigant distally and proximally. The incision was closed with a single 4-0 Nylon suture. The wound was dressed with Xeroform, Gauze, Kerlix and Jose. The tourniquet was deflated with the initial dressing and held with some pressure. Blood flow returned easily to all digits with capillary refill less than 2 seconds. The patient tolerated the procedure well and was returned to the Same Day Surgery area in a stable condition suffering no known complication.
== END 2020-11-01 08:55 | disposition home or self-care (01) ==
PROVIDERS: PCP Nurse Practitioner; Visit Provider Student in an Organized Health Care Education/Training Program
PROC: 01N54ZZ Release Median Nerve, Percutaneous Endoscopic Approach (ICD-10-PCS; CPT 29848; principal; 2020-11-01 07:30)
DX: G56.01 Carpal tunnel syndrome, right upper limb (principal)
CPT/HCPCS: 29848; J0690; J2001; J2704

== ENCOUNTER → 2020-11-11 10:45 | Outpatient (BNVA) | payer MEDICARE, SELFPAY | PROVIDERS: PCP Nurse Practitioner; Referring Provider Nurse Practitioner; Visit Provider Student in an Organized Health Care Education/Training Program | DX: Z47.89 Encounter for other orthopedic aftercare (principal); G56.01 Carpal tunnel syndrome, right upper limb ==

== ENCOUNTER 2020-12-19 17:05 | Emergency (ER) | payer MEDICARE, SELFPAY ==
--- NOTE | 2020-12-19 18:00 | DI.RAD_ITS ---
Exam(s) XR KNEE RT 3V AP,LAT,ELISABETH EXAM: XR KNEE RT 3V AP,LAT,ELISABETH CLINICAL HISTORY: pain. TECHNIQUE: 2D digital imaging was performed. COMPARISON: CR XR KNEE RT 4V AP,LAT,ELISABETH,PAT from 10/14/2020 FINDINGS: BONES: No acute fracture is present. No bony destructive lesion is seen. JOINTS: The knee is normally aligned. No joint effusion is seen. SOFT TISSUE: Normal. IMPRESSION: No acute fracture or dislocation. DATA REPOSITORY: RADIATION DOSE DELIVERED:
[2020-12-19 18:02] VITALS: BP 175/56; PULSE 66; RESP 20; TEMP 36.1; O2SAT 95
[2020-12-19] MEDS: Acetaminophen 500 MG TAB 1000 MG PO (18:12)
--- NOTE | 2020-12-19 18:12 | ED.GENADUL_ITS ---
Discharge Plan Disposition Patient Disposition: HOME Condition: Stable Discharge Details Clinical Impression: Right knee sprain Primary Care Provider: Ronel Oliver ED Provider: Alen Giordano Home Meds and New Rx's Prescriptions: Continued ferrous sulfate 325 mg (65 mg iron) tablet 325 mg PO DAILY Qty: 90 RF: 3 trazodone 50 mg tablet 50 mg PO QHS PRN (Reason: sleep) Qty: 120 RF: 4 cyanocobalamin (vitamin B-12) [Vitamin B-12] 500 mcg tablet 1,000 mcg PO DAILY Qty: 60 RF: 11 Flovent HFA 110 mcg/actuation HFA aerosol inhaler 2 puff IH BID Qty: 12 RF: 4 polyethylene glycol 3350 [Miralax] 17 gram/dose powder 17 g PO DAILY PRNRF: 0 Shingrix (PF) 50 mcg/0.5 mL suspension for reconstitution 0.5 ml IM ONCE Qty: 1 RF: 0 lisinopril 10 mg tablet 10 mg PO DAILY Qty: 30 RF: 0 (DME) incontinence pad, liner, disp Pad See Rx Instructions .ROUTE .MEDSUPPLY Qty: 48 RF: 3 aspirin [Aspir-81] 81 MG tablet,delayed release (DR/EC) 81 mg PO DAILY RF: 0 spacer 1 Q6H PRN Qty: 1 RF: 0 sennosides [Senokot] 8.6 mg tablet 8.6 mg PO BID Qty: 60 RF: 3 gabapentin 300 mg capsule 300 mg PO TID Qty: 270 RF: 4 ipratropium-albuterol 0.5 mg-3 mg(2.5 mg base)/3 mL solution for nebulization 3 ml IH Q6H PRN (Reason: copd) Qty: 180 RF: 3 albuterol sulfate [ProAir HFA] 90 mcg/actuation HFA aerosol inhaler 2 puff IH Q6H PRN (Reason: shortness of breath or wheezing) Qty: 18 RF: 4 docusate sodium [Colace] 100 mg capsule 100 mg PO BID Qty: 60 RF: 4 metoprolol tartrate 50 mg tablet 50 mg PO BID Qty: 180 RF: 4 omeprazole 40 mg capsule,delayed release(DR/EC) 40 mg PO DAILY Qty: 90 RF: 2 simvastatin [Zocor] 20 mg tablet 20 mg PO HS Qty: 90 RF: 4 acetaminophen 500 mg tablet 500 mg PO Q6H PRN PRN (Reason: pain) Qty: 40 RF: 3 ibuprofen 600 mg tablet 600 mg PO TID PRN (Reason: pain) Qty: 30 RF: 3 Discharge Instructions Instructions: Knee Sprain (ED) Additional Instructions: call orthopedics to set up an appointment you can take 1000mg tylenol and 600mg ibuprofen every 6 hours as needed return to the emergency department for severe worsening pain, fevers or if the knee becomes red Referrals: Wayne Saldana MD [ [facility] STAFF PHYSICIAN] - Medical Decision Making 70 yo female who has had months of right knee pain but 5 days or so ago per the patient she got out of bed and twisted her right knee. Denies falls or trauma and no fevers or redness. Has no calf pain or swelling. She has full range of the hip and knee. Has tenderness over medial joint line with minimal swelling of the right knee, intact distal sensation and pulses, no warmth or erythema of the knee. I suspect strain vs meniscus injury but will obtain xray to evaluate for possible fracture. No findings on history or exam to suggest septic joint stable exam and xray unremarkable on my read. Suspect sprain vs meniscus injury. Will have her follow up with ortho and return precautions given. Vrad questioned small posterior loose body, none were palpable on exam and she had no tenderness in this area. Differential Diagnosis Differential Diagnosis: meniscus injury, strain, sprain Imaging Data Radiologic Study: Attestation: I personally reviewed and interpreted this imaging study as follows: Imaging: X-Ray My impression: no acute findings HPI General Mode of arrival: wheelchair . Date/Time Provider Initiated Documentation: 12/19/20 17:07 . Limitations to Documentation: no limitations . Information obtained by: patient . History of Present Illness 70 year old F presents to the emergency department with the chief complaint of right knee pain, described as moderate, Quality is described as aching, and is localized to the right and lower extremity. Patient reports no radiation. Patient started experiencing this day(s) (5) and it has been constant. Rest improves symptom(s), Movement worsens symptoms . Patient notes no other symptoms.. Patient did receive the following treatments prior to arrival, none Related Data Home Medications Medication Instructions Recorded Confirmed aspirin [Aspir-81] 81 mg PO DAILY tab-cap 01/19/13 11/18/20 fluticasone propionate 110 2 puff IH BID #12 gm 02/10/19 11/18/20 mcg/actuation HFA aerosol inhaler sennosides 8.6 mg tablet 8.6 mg PO BID #60 tab 08/20/19 11/18/20 cyanocobalamin (vitamin B-12) 500 1,000 mcg PO DAILY #60 tab 03/25/20 11/18/20 mcg tablet polyethylene glycol 3350 17 17 g PO DAILY PRN 06/23/20 11/18/20 gram/dose oral powder varicella-zoster glycoE [id number] 0.5 ml IM ONCE #1 ea 06/23/20 11/01/20 adj(PF) 50 mcg/0.5 mL IM susp, kit gabapentin 300 mg capsule 300 mg PO TID #270 tab-cap 08/22/20 11/18/20 ipratropium 0.5 mg-albuterol 3 mg 3 ml IH Q6H PRN #180 ml 08/22/20 11/18/20 (2.5 mg base)/3 mL nebulization soln albuterol sulfate 90 mcg/actuation 2 puff IH Q6H PRN #18 gm 08/24/20 11/18/20 aerosol inhaler docusate sodium 100 mg capsule 100 mg PO BID #60 cap 08/24/20 11/18/20 metoprolol tartrate 50 mg tablet 50 mg PO BID #180 tab-cap 08/24/20 11/18/20 omeprazole 40 mg capsule,delayed 40 mg PO DAILY #90 tab-cap 08/24/20 11/18/20 release simvastatin 20 mg tablet 20 mg PO HS #90 tab 08/24/20 11/18/20 ferrous sulfate 325 mg (65 mg 325 mg PO DAILY #90 tab 10/20/20 11/18/20 iron) tablet trazodone 50 mg tablet 50 mg PO QHS PRN #120 tab 10/20/20 11/01/20 acetaminophen 500 mg PO Q6H PRN PRN #40 tab 11/01/20 11/18/20 ibuprofen 600 mg PO TID PRN #30 tab 11/01/20 11/18/20 incontinence pad, liner, disp #48 ea 11/18/20 11/18/20 lisinopril 10 mg tablet 10 mg PO DAILY #30 tab 11/18/20 11/18/20 Previous Rx's Medication Instructions Recorded fluticasone propionate 110 2 puff IH BID #12 gm 02/10/19 mcg/actuation HFA aerosol inhaler sennosides 8.6 mg tablet 8.6 mg PO BID #60 tab 08/20/19 cyanocobalamin (vitamin B-12) 500 1,000 mcg PO DAILY #60 tab 03/25/20 mcg tablet varicella-zoster glycoE [id number] 0.5 ml IM ONCE #1 ea 06/23/20 adj(PF) 50 mcg/0.5 mL IM susp, kit gabapentin 300 mg capsule 300 mg PO TID #270 tab-cap 08/22/20 ipratropium 0.5 mg-albuterol 3 mg 3 ml IH Q6H PRN #180 ml 08/22/20 (2.5 mg base)/3 mL nebulization soln albuterol sulfate 90 mcg/actuation 2 puff IH Q6H PRN #18 gm 08/24/20 aerosol inhaler docusate sodium 100 mg capsule 100 mg PO BID #60 cap 08/24/20 metoprolol tartrate 50 mg tablet 50 mg PO BID #180 tab-cap 08/24/20 omeprazole 40 mg capsule,delayed 40 mg PO DAILY #90 tab-cap 08/24/20 release simvastatin 20 mg tablet 20 mg PO HS #90 tab 08/24/20 ferrous sulfate 325 mg (65 mg 325 mg PO DAILY #90 tab 10/20/20 iron) tablet trazodone 50 mg tablet 50 mg PO QHS PRN #120 tab 10/20/20 acetaminophen 500 mg PO Q6H PRN PRN #40 tab 11/01/20 ibuprofen 600 mg PO TID PRN #30 tab 11/01/20 incontinence pad, liner, disp #48 ea 11/18/20 lisinopril 10 mg tablet 10 mg PO DAILY #30 tab 11/18/20 Allergies Allergy/AdvReac Type Severity Reaction Status Date / Time hydrocodone [Hydrocodone] AdvReac Intermediate NAUSEA Verified 11/18/20 09:40 General Stated Complaint: Orthopedic TIANA: 4 Review of Systems All systems reviewed & are unremarkable except as noted in HPI and below Constitutional Constitutional: Denies chills, Denies fever(s) and Denies weakness Cardiovascular Cardiovascular: Denies chest pain and Denies dyspnea Respiratory Respiratory: Denies cough and Denies dyspnea Gastrointestinal Gastrointestinal: Denies abdominal pain, Denies nausea and Denies vomiting Neurologic Neurologic: Denies weakness [facility] Medical History (Updated 12/19/20 @ 18:50 by Alen Giordano MD) Acute carpal tunnel syndrome of right wrist Anxiety Chronic obstructive lung disease COPD exacerbation Depressive disorder Essential hypertension Gastroesophageal reflux disease History of tobacco use 10-15 year hx 1/2- 1 PPD Hypercalcemia (09/23/15) Hyperlipidemia Iron deficiency anemia due to chronic blood loss (01/11/15) Morbid obesity (12/19/14) GHISLAINE (obstructive sleep apnea) (12/19/14) Primary insomnia (10/14/15) Severe anemia (12/19/14) Surgical History Cholecystectomy (05/28/73) Hx of colonoscopy Hx of esophagogastroduodenoscopy Status post cholecystectomy Family History Mother Hypertension Father Hyperlipidemia Hypertension Stroke Sister No problems noted. Sister No problems noted. Sister Heart disease Hyperlipidemia Hypertension Stroke Brother Hyperlipidemia Hypertension Son Depression Hypertension Son Depression Hyperlipidemia Hypertension Social History Smoking/Tobacco Use Status: Former Tobacco Use Quit Date: 08/19/00 Tobacco: How many years used: 20 Smoking risk assessment performed?: Yes Alcohol Intake: never Drug use: Never Substance use type: does not use Housing: apartment Communication Needs: Cannot Read Current gender identity: female What is your relationship status?: How often do you talk on the phone with friends or family?: twice per week How often do you get together with friends or relatives?: decline to answer How often do you attend muslim or yarsanism services?: decline to answer Do you belong to any clubs or organized social groups?: decline to answer Panel score (0-1 are the most socially isolated patients): 0 What type of physical activity do you participate in: decline to answer Duration: < 15 minutes/day Frequency: daily Delia/Jew: No preference Special delia needs: No Drive intox or ride w/intox special education bus driver: No Do you feel safe at home: Yes Do you feel safe in your relationship?: Yes Exam Const General: no acute distress Orientation: alert HENMT Head: normal to inspection Ears: external ears normal General nose exam: external nose normal Mouth: moist mucous membranes Eyes General: appearance normal, both eyes and all related structures Neck Neck: normal visual inspection Resp Effort & Inspection: normal respiratory effort and able to speak in complete sentences Cardio Rate: regular rate Skin General skin exam: no rashes or lesions noted Neuro General: patient alert and patient oriented x3 Extrem General: full ROM and capillary refill normal Psych Mental Status: mental status grossly normal Course Vital Signs Vital signs: Vital Signs Temperature 36.1 C L 12/19/20 18:02 Pulse 66 12/19/20 18:02 Respiratory Rate 20 12/19/20 18:02 Blood Pressure 175/56 H 12/19/20 18:02 Pulse Oximetry 95 12/19/20 18:02 Temperature 36.1 C L 12/19/20 18:02 Temperature Source Skin 12/19/20 18:02 Pulse 66 12/19/20 18:02 Respiratory Rate 20 12/19/20 18:02 Blood Pressure 175/56 H 12/19/20 18:02 Blood Pressure Position Sitting 12/19/20 18:02 Pulse Oximetry 95 12/19/20 18:02 Oxygen Delivery Method Room Air 12/19/20 18:02 Oxygen Flow Rate 0 12/19/20 18:02 Pain Level 9 12/19/20 18:02 Comment 12/19/20 18:02
--- NOTE | 2020-12-19 19:01 | DI.VRAD_ITS ---
PROCEDURE INFORMATION: Exam: XR Right Knee Exam date and time: 12/19/2020 6:26 PM Age: 70 years old Clinical indication: Pain; Knee; Right TECHNIQUE: Imaging protocol: XR Right knee. Views: 3 views. COMPARISON: CR XR KNEE RT 4V AP,LAT,ELISABETH,PAT 10/14/2020 10:50 AM FINDINGS: Bones/joints: No acute fracture or dislocation. The alignment is anatomic. The joint space is maintained without evidence of significant articular cartilage loss. A small osseous fragment at the posterior aspect of the knee joint may represent a flabella or small loose body. Mild osteophytosis noted. Soft tissues: No large subcutaneous soft tissue abnormality seen. IMPRESSION: No acute fracture or dislocation. Small osseous fragment at the posterior knee joint may represent a flabella or small loose body. Correlate with physical examination findings. Dictated and Authenticated by: Yolis Starkey MD. Ordering:JENNY Lowry MD
== END 2020-12-19 19:20 | disposition home or self-care (01) ==
PROVIDERS: Emergency Provider Emergency Medicine; PCP Nurse Practitioner
DX: S83.8X1A Sprain of other specified parts of right knee, initial encounter (principal); X50.1XXA Overexertion from prolonged static or awkward postures, initial encounter
CPT/HCPCS: 73562; 99283; 99282

== ENCOUNTER 2021-05-11 00:24 | Outpatient (CLI) | payer MEDICARE, SELFPAY ==
--- NOTE | 2021-05-11 08:30 | DI.MAMMO_ITS ---
Exam(s) MAMMO SCREENING EXAM: MAMMO SCREENING CLINICAL HISTORY: screening,Z12.39. TECHNIQUE: Bilateral full field digital CC and MLO mammographic images were obtained with 3D tomosyn thesis and utilizing computer aided detection (CAD). COMPARISON: Prior mammograms dating back to 2016, the most recent being March 2020. FINDINGS: There has been no significant change in the appearance and distribution of the fibroglandular tissue. There are no new spiculated masses nor malignant appearing microcalcification groups. Benign-appearing nodule laterally in the right breast is unchanged from prior studies as is the micro calcification group in the right breast. There is no significant architectural distortion nor skin thickening-retraction. IMPRESSION: Stable benign findings. No radiographic evidence of malignancy. BI-RADS Category 2 - Benign Findings Breast Density - Category B - Scattered areas of fibroglandular density Breast density Category C or D implies that the patient has dense breast tissue. Dense breast tissue can make it harder to find cancer on a mammogram. Dense breast tissue is also associated with an incr eased risk of breast cancer. This information about the result of the mammogram report was provided to the patient to raise their awareness. Use this report when you speak with the patient about their risks for breast cancer, which includes their family history. At that time, you may recommend additional screening tests (Ultrasoun d or MRI) as these tests may add significant information. A negative radiographic report should not delay biopsy if a dominant or clinically suspicious mass is present. Up to ten percent of cancers are not identified on mammography. A negative report may reinforce clinical impression. Adenosis and dense breasts may obscure an underlying neoplasm. False positive reports average 6 to 10%. Patient will receive a letter notifying them of these results.
--- NOTE | 2021-05-11 08:30 | DI.DEXA_ITS ---
Exam(s) XR DEXA BONE DENSITY W/WO TITUS EXAM: XR DEXA BONE DENSITY W/WO TITUS CLINICAL HISTORY: SCREENING FOR OSTEOPOROSIS IN POSTMENOPAUSAL WOMAN,Z78.0 TECHNIQUE: Routine DEXA evaluation of the lumbar spine, hip, or forearm. COMPARISON: Prior DEXA scan November 2015 FINDINGS: Performed on a [employer] unit. Lateral image: No compression fracture evident. Lumbar Spine total T-score: -1.9. Prior 2016 reading was -1.3 Hip total T-score:-1.1. Prior 2016 reading was -0.7 Independent reading at the level of the femoral neck yields at T-score of -2.0. Forearm total T-score: -3.3 IMPRESSION: Bone mineral density measures in the osteopenia range for the lumbar spine and hip and osteoporosis r ofe for the forearm.. Fracture risk is moderate-high. Note: Any spine fracture indicates 5x risk for subsequent spine fracture and 2x risk for subsequent h ip fracture. World Health Organization criteria for BMD interpretation classify patients: Normal...... T- Score at or above -1.0 Osteopenic... T- Score between -1.0 and -2.5 Osteoporosis... T-Score at or below -2.5
== END 2021-05-11 00:44 ==
PROVIDERS: PCP Nurse Practitioner; Visit Provider Nurse Practitioner
DX: E78.5 Hyperlipidemia, unspecified; Z12.31 Encounter for screening mammogram for malignant neoplasm of breast; Z78.0 Asymptomatic menopausal state; I10 Essential (primary) hypertension; M85.89 Other specified disorders of bone density and structure, multiple sites; M81.0 Age-related osteoporosis without current pathological fracture
CPT/HCPCS: 77063; 77067; 77080

== ENCOUNTER 2021-10-05 12:44 | Inpatient (IN) | payer MEDICARE, SELFPAY ==
[2021-10-05] VITALS (57 sets, daily range): BP systolic 85–140; BP diastolic 45–103; PULSE 61–93; RESP 14–28; TEMP 36.2–36.9; O2SAT 92–100
--- NOTE | 2021-10-05 12:30 | RT.EKG_ITS ---
APPROVED REPORT Exam: Resting ECG Reason for Exam: sob Patient Location: E HR:65 bpm ECG Measurements Heart Rate 65 AXIS IN 192 P 69 QRSd 93 QRS 63 QT 381 T 101 QTc 397 Conclusion Sinus rhythm. Probable LVH with secondary repol abnrm...multiple LVH criteria
--- NOTE | 2021-10-05 13:15 | DI.RAD_ITS ---
Exam(s) XR PORTABLE CHEST AP EXAM: XR PORTABLE CHEST AP CLINICAL HISTORY: cough/sob TECHNIQUE: 2D digital imaging was performed of the chest. One image was obtained. An AP view was ob tained. COMPARISON: CR,XR XR CHEST 2V PA LATERAL from 07/23/2019 FINDINGS: MEDIASTINUM: Normal. HEART: Normal. PULMONARY VASCULATURE: Normal. LUNGS: Clear. PLEURAL SPACE: No pleural effusion or pneumothorax. BONE:Within normal limits for the patient's age. OTHER FINDINGS:Normal. IMPRESSION: No acute pulmonary findings. DATA REPOSITORY: RADIATION DOSE DELIVERED:
[2021-10-05 13:44] LABS: Abs Immature Grans 0.17 10^3/uL (0.0-0.06); Absolute Basophil Count 0.08 10^3/uL (0.0-0.2); Absolute Eosinophil Count 0.67 10^3/uL (0.0-0.7); Absolute Monocyte Count 1.02 10^3/uL (0.1-0.8); Basophils % 0.7; Eosinophils % 5.7; Immature Grans % 1.5; Lymphocytes % 23.1; MCH 30.4 pg (27.0-33.0); MCHC 31.8 % (32.0-36.0); MCV 95.6 fL (80-95); MPV 13.9 fL (8.0-11.0); Monocytes % 8.7; Neutrophils % 60.3; Nucleated RBC 0 %; Platelet Count 139 10^3/uL (130-400); RBC 2.04 10^6/uL (3.93-5.22); RDW 17.5 % (11.7-14.6); RDW-SD 57.1 fL; WBC 11.71 10^3/uL (4.4-10.8)
[2021-10-05 13:54] LABS: Absolute Lymphocyte Count 2.71 10^3/uL (1.2-3.4); Absolute Neutrophil Count 7.06 10^3/uL (1.2-6.7)
[2021-10-05 13:55] LABS: HGB 6.2 g/dL (11.2-15.7)
[2021-10-05 13:56] LABS: HCT 19.5 % (36.0-46.0)
[2021-10-05] MEDS: methylPREDNISolone SUCC 125 MG VIAL IVP (14:05)
[2021-10-05 14:06] LABS: ALT 43 U/L (14-59); AST 52 U/L (15-37); Albumin 3.1 g/dL (3.4-5.0); Alkaline Phosphatase 78 U/L (46-116); Anion Gap 10.3 mmol/L (3-11); BUN 46 mg/dL (7-18); Bilirubin, Total 0.2 mg/dL (0.2-1.0); CO2 19.7 mmol/L (21.0-32.0); CREATININE 1.5 mg/dL (0.55-1.02); Calcium 9.4 mg/dL (8.5-10.1); Chloride 107 mmol/L (98-107); Estimated GFR 34.13 (mL/min/1.73m2); Glucose 165 mg/dL (74-106); NT-proBNP 2528 pg/mL (<300); Potassium 4.6 mmol/L (3.5-5.1); Sodium 137 mmol/L (136-145); Troponin I 51 ng/L (<or=60)
[2021-10-05 14:17] LABS: D-Dimer 287 ng/mlFEU (<500)
--- NOTE | 2021-10-05 14:27 | W.ED.GENAD ---
Discharge Plan Disposition Patient Disposition: [facility] INPATIENT Condition: Serious Discharge Details Clinical Impression: DE JESUS (dyspnea on exertion), GI bleed, COVID-19 Primary Care Provider: Ronel Oliver ED Provider: Ermias Birmingham Home Meds and New Rx's Prescriptions: No Action ferrous sulfate 325 mg (65 mg iron) tablet 325 mg PO DAILY Qty: 90 3RF polyethylene glycol 3350 [Miralax] 17 gram/dose powder 17 g PO DAILY PRN0RF Hold Instructions: Home Medication placed on hold at Doctor's office (DME) incontinence pad, liner, disp Pad See Rx Instructions .ROUTE .MEDSUPPLY Qty: 48 3RF Rx Instructions: As directed cyanocobalamin (vitamin B-12) [Vitamin B-12] 500 mcg tablet 1,000 mcg PO DAILY Qty: 60 11RF glucosamine sulfate 2KCl [Glucosamine Relief] 1,000 mg tablet 2,000 mg PO BID 0RF Rx Instructions: administer with meals amitriptyline 25 mg tablet 25 mg PO QHS Qty: 90 4RF Breo Ellipta 100-25 mcg/dose blister with device 1 inh inhalation DAILY Qty: 60 11RF ipratropium-albuterol 0.5 mg-3 mg(2.5 mg base)/3 mL solution for nebulization 3 ml IH Q6H PRN (Reason: copd) Qty: 180 3RF lisinopril 20 mg tablet 20 mg PO DAILY Qty: 90 4RF aspirin [Aspir-81] 81 MG tablet,delayed release (DR/EC) 81 mg PO DAILY 0RF spacer 1 Q6H PRN Qty: 1 0RF Rx Instructions: Spacer to go with albuterol inhaler sennosides [Senokot] 8.6 mg tablet 8.6 mg PO BID Qty: 60 3RF Hold Instructions: Home Medication placed on hold at Doctor's office docusate sodium [Colace] 100 mg capsule 100 mg PO BID Qty: 60 4RF metoprolol tartrate 50 mg tablet 50 mg PO BID Qty: 180 4RF alendronate [Fosamax] 70 mg tablet 70 mg PO QWEEK Qty: 13 4RF omeprazole 40 mg capsule,delayed release(DR/EC) 40 mg PO DAILY Qty: 90 4RF albuterol sulfate [ProAir HFA] 90 mcg/actuation HFA aerosol inhaler 2 puff IH Q6H PRN (Reason: shortness of breath or wheezing) Qty: 18 4RF gabapentin 300 mg capsule 300 mg PO TID Qty: 270 4RF ibuprofen 600 mg tablet 600 mg PO TID PRN (Reason: pain) Qty: 30 3RF simvastatin [Zocor] 20 mg tablet 20 mg PO HS Qty: 90 4RF acetaminophen 500 mg tablet 500 mg PO Q6H PRN PRN (Reason: pain) Qty: 40 3RF Medical Decision Making This is a 71-year female with a significant past medical history presenting to the ER today for acute on chronic dyspnea exertion. Patient states this feels like one of her COPD flareups. Clinically she appears well, nontoxic, hemodynamically stable, O2 sat 99% on room air. She tells me that she is back. Given her presentation, will initiate cardiac work-up, obtain a D-dimer, give IV fluid, obtain a Covid swab and I will need to perform a rectal examination. Given her history of COPD with dyspnea on exertion and wheezing, I will give 125 IV Solu-Medrol. It should be noted that the patient did have a few documented blood pressures that were low however she is mentating without difficulty and patient moved to the blood pressure cuff when this was being obtained. There were multiple manual blood pressures obtained and her blood pressures remained consistently in the 100/50 region. Laboratory values reveal a white blood cell count of 11.71. Critical hemoglobin 20.2 and critical hematocrit of 19 5. Rectal exam is heme positive. We discussed that this, she gave verbal consent for blood transfusion. Type and screen and a unit of blood was ordered. Platelet count 139. D-dimer negative at 287. Electrolytes unremarkable. BUN 46, creatinine 1.5, GFR 34.13. Calcium 9.4, troponin less than 50. BNP elevated at 2528 but clinically she does not appear to be in CHF. Chest x-ray is unremarkable. Plan was to keep the packed red blood cells, await her delta troponin, and then admit the patient. She continues to be hemodynamically stable and O2 sat is in the high 90s. I was called with another critical lab value, she is Covid positive. Again that she is in no respiratory distress whatsoever. Case was discussed with our hospitalist team, Dr. Bryson, who is agreeable for admission of the patient. Patient will likely benefit from a another unit of blood, surgical consultation from her GI bleed, and continued monitoring of her H&H and Covid status. He will place admission orders. Patient is comfortable with this plan and has no additional questions or concerns. This documentation was generated using [employer] system, please disregard any oddities of phrase or misspellings. Medical Records Medical records reviewed: Yes I reviewed the patient's medical records. Imaging Data Radiologic Study: Attestation: I personally reviewed and interpreted this imaging study as follows: Imaging: X-Ray Radiologist's impression: Exam(s) XR PORTABLE CHEST AP EXAM: XR PORTABLE CHEST AP CLINICAL HISTORY: cough/sob TECHNIQUE: 2D digital imaging was performed of the chest. One image was obtained. An AP view was obtained. COMPARISON: CR,XR XR CHEST 2V PA LATERAL from 07/23/2019 FINDINGS: MEDIASTINUM: Normal. HEART: Normal. PULMONARY VASCULATURE: Normal. LUNGS: Clear. PLEURAL SPACE: No pleural effusion or pneumothorax. BONE:Within normal limits for the patient's age. OTHER FINDINGS:Normal. IMPRESSION: No acute pulmonary findings. Lab Data Lab results reviewed: Yes I reviewed the patient's lab results. Labs: Laboratory Tests Range/Units 10/05/21 10/05/21 10/05/21 13:01 13:01 13:30 WBC (4.4-10.8) 10^3/uL 11.71 H RBC (3.93-5.22) 10^6/uL 2.04 L Hgb (11.2-15.7) g/dL 6.2 L* Hct (36.0-46.0) % 19.5 L* MCV (80-95) fL 95.6 H MCH (27.0-33.0) pg 30.4 MCHC (32.0-36.0) % 31.8 L RDW (11.7-14.6) % 17.5 H Plt Count (130-400) 10^3/uL 139 MPV (8.0-11.0) fL 13.9 H Immature Gran % 1.5 Neutrophils % 60.3 Lymphocytes % 23.1 Monocytes % 8.7 Eosinophils % 5.7 Basophils % 0.7 Nucleated RBC % % 0 Absolute Neutrophils (1.2-6.7) 10^3/uL 7.06 H Absolute Lymphocytes (1.2-3.4) 10^3/uL 2.71 Absolute Monocytes (0.1-0.8) 10^3/uL 1.02 H Absolute Eosinophils (0.0-0.7) 10^3/uL 0.67 Absolute Basophils (0.0-0.2) 10^3/uL 0.08 D-Dimer (<500) ng/mlFEU 287 Sodium (136-145) mmol/L 137 Potassium (3.5-5.1) mmol/L 4.6 Chloride (98-107) mmol/L 107 Carbon Dioxide (21.0-32.0) mmol/L 19.7 L Anion Gap (3-11) mmol/L 10.3 BUN (7-18) mg/dL 46 H Creatinine (0.55-1.02) mg/dL 1.5 H Estimated GFR/1.73 m2 (mL/min/1.73m2) 34.13 Glucose (74-106) mg/dL 165 H Calcium (8.5-10.1) mg/dL 9.4 Magnesium (1.8-2.4) mg/dL 2.0 Total Bilirubin (0.2-1.0) mg/dL 0.2 AST (15-37) U/L 52 H ALT (14-59) U/L 43 Alkaline Phosphatase (46-116) U/L 78 Troponin I (<or=60) ng/L 51 NT-Pro-B Natriuret Pep (<300) pg/mL 2528 H Total Protein (6.4-8.2) g/dL 6.0 L Albumin (3.4-5.0) g/dL 3.1 L COVID-19 Source SARS-CoV-2 (PCR) (Negative) Patient ABO/Rh Antibody Screen Crossmatch Range/Units 10/05/21 10/05/21 10/05/21 14:10 14:15 16:57 WBC (4.4-10.8) 10^3/uL RBC (3.93-5.22) 10^6/uL Hgb (11.2-15.7) g/dL Hct (36.0-46.0) % MCV (80-95) fL MCH (27.0-33.0) pg MCHC (32.0-36.0) % RDW (11.7-14.6) % Plt Count (130-400) 10^3/uL MPV (8.0-11.0) fL Immature Gran % Neutrophils % Lymphocytes % Monocytes % Eosinophils % Basophils % Nucleated RBC % % Absolute Neutrophils (1.2-6.7) 10^3/uL Absolute Lymphocytes (1.2-3.4) 10^3/uL Absolute Monocytes (0.1-0.8) 10^3/uL Absolute Eosinophils (0.0-0.7) 10^3/uL Absolute Basophils (0.0-0.2) 10^3/uL D-Dimer (<500) ng/mlFEU Sodium (136-145) mmol/L Potassium (3.5-5.1) mmol/L Chloride (98-107) mmol/L Carbon Dioxide (21.0-32.0) mmol/L Anion Gap (3-11) mmol/L BUN (7-18) mg/dL Creatinine (0.55-1.02) mg/dL Estimated GFR/1.73 m2 (mL/min/1.73m2) Glucose (74-106) mg/dL Calcium (8.5-10.1) mg/dL Magnesium (1.8-2.4) mg/dL Total Bilirubin (0.2-1.0) mg/dL AST (15-37) U/L ALT (14-59) U/L Alkaline Phosphatase (46-116) U/L Troponin I (<or=60) ng/L 53 NT-Pro-B Natriuret Pep (<300) pg/mL Total Protein (6.4-8.2) g/dL Albumin (3.4-5.0) g/dL COVID-19 Source Nasal/Nares SARS-CoV-2 (PCR) (Negative) POSITIVE A* Patient ABO/Rh A Negative Antibody Screen NEGATIVE Crossmatch See Detail ECG Data Attestation: I personally reviewed and interpreted this ECG (s) as follows: Interpretation: Please see attached report Naomi. Sinus rhythm, ventricular rate of. No STEMI. HPI General Mode of arrival: EMS. Date/Time Provider Initiated Documentation: 10/05/21 12:47. Limitations to Documentation: no limitations. Information obtained by: patient. HPI Narrative: This is a 71-year-old, past medical history of a, anemia, hyperlipidemia, obesity, hypertension, anxiety, presenting to the ER for what she describes as acute on chronic dyspnea with exertion worsening over the past 2-3 days. She does not use oxygen at baseline. Patient states that when she feels the sensation of difficulty breathing she becomes anxious and then gets a tightness in her chest but denies any obvious chest pain. She reports that she is a former smoker and has a chronic cough which is at his baseline. She denies recent illness or trauma. Denies headache, fever, chest pain, abdominal pain, nausea, vomiting, constipation, numbness, tingling, weakness. Patient initially denies any diarrhea, black tarry stools or bright red blood in her stools. Later she tells me that she stopped taking her iron 3 weeks ago because her stools were dark. She then tells me she had diarrhea 3 days ago that she thought looked bloody. Related Data Home Medications Medication Instructions Recorded Confirmed aspirin 81 mg tablet,delayed 81 mg PO DAILY tab-cap 01/19/13 10/05/21 release (Aspir-) sennosides 8.6 mg tablet (Senokot) 8.6 mg PO BID #60 tab 08/20/19 03/07/21 polyethylene glycol 3350 17 17 g PO DAILY PRN 06/23/20 03/07/21 gram/dose oral powder (Miralax) docusate sodium 100 mg capsule 100 mg PO BID #60 cap 08/24/20 10/05/21 (Colace) metoprolol tartrate 50 mg tablet 50 mg PO BID #180 tab-cap 08/24/20 10/05/21 ferrous sulfate 325 mg (65 mg 325 mg PO DAILY #90 tab 10/20/20 10/05/21 iron) tablet acetaminophen 500 mg tablet 500 mg PO Q6H PRN PRN #40 tab 11/01/20 10/05/21 incontinence pad, liner, disp #48 ea 11/18/20 03/07/21 cyanocobalamin (vitamin B-12) 500 1,000 mcg PO DAILY #60 tab 01/03/21 10/05/21 mcg tablet (Vitamin B-12) amitriptyline 25 mg tablet 25 mg PO QHS #90 tab 03/07/21 10/05/21 fluticasone furoate 100 1 inh INHALATION DAILY #60 ea 03/07/21 10/05/21 mcg-vilanterol 25 mcg/dose inhalation powder (Breo Ellipta) glucosamine sulfate 2KCl 1,000 mg 2,000 mg PO BID tab 03/07/21 10/05/21 tablet (Glucosamine Relief) ipratropium 0.5 mg-albuterol 3 mg 3 ml IH Q6H PRN #180 ml 03/07/21 10/05/21 (2.5 mg base)/3 mL nebulization soln lisinopril 20 mg tablet 20 mg PO DAILY #90 tab 03/07/21 10/05/21 alendronate 70 mg tablet (Fosamax) 70 mg PO QWEEK #13 tab 05/22/21 10/05/21 omeprazole 40 mg capsule,delayed 40 mg PO DAILY #90 tab-cap 06/19/21 10/05/21 release albuterol sulfate 90 mcg/actuation 2 puff IH Q6H PRN #18 gm 09/19/21 10/05/21 aerosol inhaler (ProAir HFA) gabapentin 300 mg capsule 300 mg PO TID #270 tab-cap 09/19/21 10/05/21 ibuprofen 600 mg tablet 600 mg PO TID PRN #30 tab 09/19/21 10/05/21 simvastatin 20 mg tablet (Zocor) 20 mg PO HS #90 tab 09/19/21 10/05/21 Previous Rx's Medication Instructions Recorded sennosides 8.6 mg tablet (Senokot) 8.6 mg PO BID #60 tab 08/20/19 docusate sodium 100 mg capsule 100 mg PO BID #60 cap 08/24/20 (Colace) metoprolol tartrate 50 mg tablet 50 mg PO BID #180 tab-cap 08/24/20 ferrous sulfate 325 mg (65 mg 325 mg PO DAILY #90 tab 10/20/20 iron) tablet acetaminophen 500 mg tablet 500 mg PO Q6H PRN PRN #40 tab 11/01/20 incontinence pad, liner, disp #48 ea 11/18/20 cyanocobalamin (vitamin B-12) 500 1,000 mcg PO DAILY #60 tab 01/03/21 mcg tablet (Vitamin B-12) amitriptyline 25 mg tablet 25 mg PO QHS #90 tab 03/07/21 fluticasone furoate 100 1 inh INHALATION DAILY #60 ea 03/07/21 mcg-vilanterol 25 mcg/dose inhalation powder (Breo Ellipta) ipratropium 0.5 mg-albuterol 3 mg 3 ml IH Q6H PRN #180 ml 03/07/21 (2.5 mg base)/3 mL nebulization soln lisinopril 20 mg tablet 20 mg PO DAILY #90 tab 03/07/21 alendronate 70 mg tablet (Fosamax) 70 mg PO QWEEK #13 tab 05/22/21 omeprazole 40 mg capsule,delayed 40 mg PO DAILY #90 tab-cap 06/19/21 release albuterol sulfate 90 mcg/actuation 2 puff IH Q6H PRN #18 gm 09/19/21 aerosol inhaler (ProAir HFA) gabapentin 300 mg capsule 300 mg PO TID #270 tab-cap 09/19/21 ibuprofen 600 mg tablet 600 mg PO TID PRN #30 tab 09/19/21 simvastatin 20 mg tablet (Zocor) 20 mg PO HS #90 tab 09/19/21 Allergies Allergy/AdvReac Type Severity Reaction Status Date / Time hydrocodone [Hydrocodone] AdvReac Intermediate NAUSEA Verified 10/05/21 13:03 General Stated Complaint: SOB TIANA: 2 Review of Systems Constitutional Constitutional: Denies fatigue, Denies fever(s) and Denies headache(s) Eyes Eyes: Denies change in vision ENT Ears, Nose, Mouth, and Throat: Denies headache(s) and Denies neck pain Cardiovascular Cardiovascular: Denies chest pain and Reports dyspnea Respiratory Respiratory: Reports cough and Reports dyspnea Gastrointestinal Gastrointestinal: Denies abdominal pain, Denies nausea and Denies vomiting Musculoskeletal Musculoskeletal: Denies back pain, Denies neck pain, Denies numbness and Denies tingling Integumentary/Breasts Skin/Breast: Denies rash Neurologic Neurologic: Denies headache(s), Denies numbness and Denies tingling Psychiatric Psychiatric: Reports anxiety Endocrine Endocrine: Denies fatigue Hematologic/Lymphatic Hematologic/Lymphatic: Denies easy bleeding and Denies easy bruising PFSH All Active Problems (Updated 10/05/21 @ 18:13 by WASHINGTON Salgado) DE JESUS (dyspnea on exertion) (Acute) GI bleed (Chronic) COVID-19 (Acute) Osteoporosis (Chronic) Insomnia (Acute) Right knee sprain (Acute) Post-nasal drainage (Acute) GERD (gastroesophageal reflux disease) (Chronic 12/19/14) COPD (chronic obstructive pulmonary disease) (Chronic) Total urinary incontinence (Chronic) Illiterate (Chronic) Dyspnea on exertion (Chronic) Anemia (Chronic) Osteoarthritis (Chronic) knees, hands Hyperlipidemia (Acute) Morbid obesity (Acute 12/19/14) Essential hypertension (Acute) Anxiety (Acute) Medical History Acute carpal tunnel syndrome of right wrist Chronic obstructive lung disease COPD exacerbation Depressive disorder Gastroesophageal reflux disease History of tobacco use 10-15 year hx 1/2- 1 PPD Hypercalcemia (09/23/15) Hyperlipidemia Iron deficiency anemia due to chronic blood loss (01/11/15) GHISLAINE (obstructive sleep apnea) (12/19/14) Severe anemia (12/19/14) Surgical History Cholecystectomy (05/28/73) Hx of colonoscopy Hx of esophagogastroduodenoscopy Status post cholecystectomy Family History Mother Hypertension Father Hyperlipidemia Hypertension Stroke Sister No problems noted. Sister No problems noted. Sister Heart disease Hyperlipidemia Hypertension Stroke Brother Hyperlipidemia Hypertension Son Depression Hypertension Son Depression Hyperlipidemia Hypertension Social History Smoking/Tobacco Use Status: Former Tobacco Use Quit Date: 08/19/00 Tobacco: How many years used: 20 Smoking risk assessment performed?: Yes Alcohol Intake: never Drug use: Never Substance use type: does not use Housing: apartment Communication Needs: Cannot Read Current gender identity: female What is your relationship status?: How often do you talk on the phone with friends or family?: twice per week How often do you get together with friends or relatives?: decline to answer How often do you attend religion or restorationist services?: decline to answer Do you belong to any clubs or organized social groups?: decline to answer Panel score (0-1 are the most socially isolated patients): 0 What type of physical activity do you participate in: decline to answer Duration: < 15 minutes/day Frequency: daily Delia/Religious: No preference Special delia needs: No Drive intox or ride w/intox services delivery driver: No Do you feel safe at home: Yes Do you feel safe in your relationship?: Yes Exam Const General: cooperative, comfortable, no acute distress and ill appearing chronically Orientation: alert, awake and oriented x3 [facility] Head: normal to inspection, normocephalic and atraumatic Face and sinus: normal facial exam Mouth: moist mucous membranes Eyes General: appearance normal, both eyes and all related structures Conjunctivae: conjunctivae normal Neck Neck: normal visual inspection, full ROM, no meningeal signs, trachea midline, supple and nontender Resp Effort & Inspection: normal respiratory effort, able to speak in complete sentences and cough Quality of cough: dry (mild) Auscultation: diminished lung sounds bilaterally in the lower lung sierra and wheezes (Rare, scattered) Cardio Rate: regular rate Rhythm: regular rhythm GI Inspection: normal to inspection and obesity Palpation: soft, not firm, no guarding, no pulsatile masses and nontender Auscultation: normal bowel sounds Rectal Exam - female: visual inspection normal, normal sphincter tone and heme positive stool (brown stool) Rectal exam heme positive - female: 2+ Back/Spine/Pelvis Back: No back tenderness Skin General skin exam: no rashes or lesions noted Neuro General: patient alert, patient awake, patient oriented x3, moves all extremities and no focal motor deficits Cognition: normal cognition Speech: speech normal Gait: normal gait Motor: muscle tone normal throughout Sensory Exam: no sensory deficits noted Extrem General: full ROM, capillary refill normal, no calf tenderness and edema Laterality: bilateral (mild, non pitting) Psych Appearance: grossly normal Mental Status: mental status grossly normal Course Vital Signs Vital signs: Vital Signs Temperature 36.4 C L 10/05/21 12:49 Pulse 71 10/05/21 12:49 Respiratory Rate 18 10/05/21 12:49 Blood Pressure 122/60 10/05/21 12:49 Pulse Oximetry 99 10/05/21 12:49 Temperature 36.4 C L 10/05/21 12:49 Temperature Source Skin 10/05/21 12:49 Pulse 67 10/05/21 13:47 Pulse 67 10/05/21 13:47 Respiratory Rate 21 10/05/21 13:47 Respiratory Effort 10/05/21 13:17 Blood Pressure 78/41 L 10/05/21 13:47 Blood Pressure Mean 46 10/05/21 13:47 Pulse Oximetry 99 10/05/21 13:40 Oxygen Delivery Method Nasal Cannula 10/05/21 12:49 Oxygen Flow Rate 2 10/05/21 12:49 Pain Level 0 10/05/21 12:49 Lab/Test Results Lab/Test Results: Laboratory Tests Range/Units 10/05/21 10/05/21 10/05/21 13:01 13:01 13:30 WBC (4.4-10.8) 10^3/uL 11.71 H RBC (3.93-5.22) 10^6/uL 2.04 L Hgb (11.2-15.7) g/dL 6.2 L* Hct (36.0-46.0) % 19.5 L* MCV (80-95) fL 95.6 H MCH (27.0-33.0) pg 30.4 MCHC (32.0-36.0) % 31.8 L RDW (11.7-14.6) % 17.5 H Plt Count (130-400) 10^3/uL 139 MPV (8.0-11.0) fL 13.9 H Immature Gran % 1.5 Neutrophils % 60.3 Lymphocytes % 23.1 Monocytes % 8.7 Eosinophils % 5.7 Basophils % 0.7 Nucleated RBC % % 0 Absolute Neutrophils (1.2-6.7) 10^3/uL 7.06 H Absolute Lymphocytes (1.2-3.4) 10^3/uL 2.71 Absolute Monocytes (0.1-0.8) 10^3/uL 1.02 H Absolute Eosinophils (0.0-0.7) 10^3/uL 0.67 Absolute Basophils (0.0-0.2) 10^3/uL 0.08 D-Dimer (<500) ng/mlFEU 287 Sodium (136-145) mmol/L 137 Potassium (3.5-5.1) mmol/L 4.6 Chloride (98-107) mmol/L 107 Carbon Dioxide (21.0-32.0) mmol/L 19.7 L Anion Gap (3-11) mmol/L 10.3 BUN (7-18) mg/dL 46 H Creatinine (0.55-1.02) mg/dL 1.5 H Estimated GFR/1.73 m2 (mL/min/1.73m2) 34.13 Glucose (74-106) mg/dL 165 H Calcium (8.5-10.1) mg/dL 9.4 Magnesium (1.8-2.4) mg/dL 2.0 Total Bilirubin (0.2-1.0) mg/dL 0.2 AST (15-37) U/L 52 H ALT (14-59) U/L 43 Alkaline Phosphatase (46-116) U/L 78 Troponin I (<or=60) ng/L 51 NT-Pro-B Natriuret Pep (<300) pg/mL 2528 H Total Protein (6.4-8.2) g/dL 6.0 L Albumin (3.4-5.0) g/dL 3.1 L Crossmatch Range/Units 10/05/21 14:02 WBC (4.4-10.8) 10^3/uL RBC (3.93-5.22) 10^6/uL Hgb (11.2-15.7) g/dL Hct (36.0-46.0) % MCV (80-95) fL MCH (27.0-33.0) pg MCHC (32.0-36.0) % RDW (11.7-14.6) % Plt Count (130-400) 10^3/uL MPV (8.0-11.0) fL Immature Gran % Neutrophils % Lymphocytes % Monocytes % Eosinophils % Basophils % Nucleated RBC % % Absolute Neutrophils (1.2-6.7) 10^3/uL Absolute Lymphocytes (1.2-3.4) 10^3/uL Absolute Monocytes (0.1-0.8) 10^3/uL Absolute Eosinophils (0.0-0.7) 10^3/uL Absolute Basophils (0.0-0.2) 10^3/uL D-Dimer (<500) ng/mlFEU Sodium (136-145) mmol/L Potassium (3.5-5.1) mmol/L Chloride (98-107) mmol/L Carbon Dioxide (21.0-32.0) mmol/L Anion Gap (3-11) mmol/L BUN (7-18) mg/dL Creatinine (0.55-1.02) mg/dL Estimated GFR/1.73 m2 (mL/min/1.73m2) Glucose (74-106) mg/dL Calcium (8.5-10.1) mg/dL Magnesium (1.8-2.4) mg/dL Total Bilirubin (0.2-1.0) mg/dL AST (15-37) U/L ALT (14-59) U/L Alkaline Phosphatase (46-116) U/L Troponin I (<or=60) ng/L NT-Pro-B Natriuret Pep (<300) pg/mL Total Protein (6.4-8.2) g/dL Albumin (3.4-5.0) g/dL Crossmatch See Detail Critical Care Time Critical Care Time Critical Care Time: Yes Total Critical Care Time: 35 Attestation: Upon my evaluation, this patient had a high probability of clinically significant, life-threatening deterioration due to their current medical conditions, which required my direct attention, intervention, and personal management. I have personally provided greater than 30 minutes of critical care time exclusive of the time spend on separately billable procedures. Time includes obtaining a history, examining the patient, pulse oximetry, review of laboratory data, radiology results, discussion with consultants, arranging urgent treatment with development of a management plan, evaluation of patient's response to treatment, and monitoring for potential decompensation. Interventions were performed as documented above.
[2021-10-05 15:25] LABS: COVID-19 PCR POSITIVE (Negative); Source Nasal/Nares
[2021-10-05 17:22] LABS: Troponin I 53 ng/L (<or=60)
--- NOTE | 2021-10-05 18:33 | W.PM.HP.N ---
Date of service: 10/05/21 Time of Service: 18:33 Assessment and Plan Assessment and plan (1) DE JESUS (dyspnea on exertion): Status: Acute Assessment and plan: May have a component of COPD but the main etiology is likely her anemia. She states she has had anemia for many years and has had transfusions and typically takes iron supplementation. MCV is elevated. Last B12 level in chart was several years ago and was normal. Check B12 and folate. Also check iron and % saturation. Likely lower GI source of blood loss. Day hospitalist can d/w general surgery regarding colonoscopy during this admission vs outpt. She endorses several colonoscopies in the past; most recent one was appx 6 years ago. She did have SPEP testing in 2019 after a hospitalization for DE JESUS and anemia. SPEP was unremarkable. (2) COVID-19: Status: Acute Assessment and plan: No lower resp tract symptoms. Very mild upper resp tract symptoms of congestion. Not hypoxic. Standard Covid precautions. (3) COPD (chronic obstructive pulmonary disease): Status: Chronic Assessment and plan: Budesonide/Fomoterol inhaler; substitution for her home Breo Ellipta PRN albuterol or Duoneb. Qualifiers: COPD type: emphysema Emphysema type: unspecified Qualified Code(s): J43.9 - Emphysema, unspecified (4) Essential hypertension: Status: Acute Assessment and plan: Cont lisinopril and monitor. (5) Anemia: Status: Chronic Assessment and plan: 2 units of RBCs to be transfused. CBC in AM. See DE JESUS above. (6) Depressive disorder: Assessment and plan: with anxiety componenet. On nightly amitroptyline. History of Present Illness History of Present Illness Chief Complaint: Dyspnea on exertion Narrative: This is a 71-year female with a significant past medical history of COPD, HTN, HLD, anxiety, morbid obesity, urinary incontinence. She presentedto the ED with c/o acute on chronic dyspnea exertion.? Patient stated this feels like one of her COPD flareups.?No sputum, F/C. N abd pain, N/V, dysuria. She did report ear and nasal congestion. No lightheadedness/dizziness. She did report recently she had what may have been blood in her stool. She often has dark colored stools from her iron supplementation but she hasn't been taken it for several weeks., O2 sat 99% on room air.? HR in the 70's. Afebrile. Manual BP readings in the 110's-120. Some lower readings with systolics in the 80's were by automated cuff and were inconsistent. Laboratory values revealeda white blood cell count of 11.71.? Critical hemoglobin of 6.2 and critical hematocrit of 19 5.? Rectal exam was heme positive.? She gave verbal consent for blood transfusion.? Platelet count 139.? D-dimer negative at 287.? Electrolytes unremarkable.? BUN 46, creatinine 1.5, GFR 34.13.? Calcium 9.4, troponin less than 50.? BNP elevated at 2528. Covid-19 was positive. She endorsed being vaccinated. Chest x-ray was unremarkable. She was initially given IV solumedrol 125mg. She was transfused a unit of RBCs in the ED and another was ordered to be administered on the med-surg unit. Review of Systems All systems reviewed & are unremarkable except as noted in HPI and below PFSH All Active Problems DE JESUS (dyspnea on exertion) (Acute) GI bleed (Chronic) COVID-19 (Acute) Osteoporosis (Chronic) Insomnia (Acute) Right knee sprain (Acute) Post-nasal drainage (Acute) GERD (gastroesophageal reflux disease) (Chronic 12/19/14) COPD (chronic obstructive pulmonary disease) (Chronic) Total urinary incontinence (Chronic) Illiterate (Chronic) Dyspnea on exertion (Chronic) Anemia (Chronic) Osteoarthritis (Chronic) knees, hands Hyperlipidemia (Acute) Morbid obesity (Acute 12/19/14) Essential hypertension (Acute) Anxiety (Acute) Medical History Acute carpal tunnel syndrome of right wrist Chronic obstructive lung disease COPD exacerbation Depressive disorder Gastroesophageal reflux disease History of tobacco use 10-15 year hx 1/2- 1 PPD Hypercalcemia (09/23/15) Hyperlipidemia Iron deficiency anemia due to chronic blood loss (01/11/15) GHISLAINE (obstructive sleep apnea) (12/19/14) Severe anemia (12/19/14) Surgical History Cholecystectomy (05/28/73) Hx of colonoscopy Hx of esophagogastroduodenoscopy Status post cholecystectomy Family History Mother Hypertension Father Hyperlipidemia Hypertension Stroke Sister No problems noted. Sister No problems noted. Sister Heart disease Hyperlipidemia Hypertension Stroke Brother Hyperlipidemia Hypertension Son Depression Hypertension Son Depression Hyperlipidemia Hypertension Social History Smoking/Tobacco Use Status: Former Tobacco Use Quit Date: 08/19/00 Tobacco: How many years used: 20 Smoking risk assessment performed?: Yes Alcohol Intake: never Drug use: Never Substance use type: does not use Housing: apartment Communication Needs: Cannot Read Current gender identity: female What is your relationship status?: How often do you talk on the phone with friends or family?: twice per week How often do you get together with friends or relatives?: decline to answer How often do you attend denominational or bahai services?: decline to answer Do you belong to any clubs or organized social groups?: decline to answer Panel score (0-1 are the most socially isolated patients): 0 What type of physical activity do you participate in: decline to answer Duration: < 15 minutes/day Frequency: daily Delia/Baptist: No preference Special delia needs: No Drive intox or ride w/intox medical van driver: No Do you feel safe at home: Yes Do you feel safe in your relationship?: Yes Meds Allergies and Home Medications Allergies Allergy/AdvReac Type Severity Reaction Status Date / Time hydrocodone [Hydrocodone] AdvReac Intermediate NAUSEA Verified 10/05/21 13:03 Home Medications Medication Instructions Recorded Confirmed Type aspirin 81 mg tablet,delayed 81 mg PO DAILY tab-cap 01/19/13 10/05/21 History release (Aspir-) Spacer 1 Q6H PRN #1 ea 11/15/17 02/10/19 Clinic sennosides 8.6 mg tablet (Senokot) 8.6 mg PO BID #60 tab 08/20/19 03/07/21 Rx polyethylene glycol 3350 17 17 g PO DAILY PRN 06/23/20 03/07/21 History gram/dose oral powder (Miralax) docusate sodium 100 mg capsule 100 mg PO BID #60 cap 08/24/20 10/05/21 Rx (Colace) metoprolol tartrate 50 mg tablet 50 mg PO BID #180 tab-cap 08/24/20 10/05/21 Rx ferrous sulfate 325 mg (65 mg 325 mg PO DAILY #90 tab 10/20/20 10/05/21 Rx iron) tablet acetaminophen 500 mg tablet 500 mg PO Q6H PRN PRN #40 tab 11/01/20 10/05/21 Rx incontinence pad, liner, disp #48 ea 11/18/20 03/07/21 Rx cyanocobalamin (vitamin B-12) 500 1,000 mcg PO DAILY #60 tab 01/03/21 10/05/21 Rx mcg tablet (Vitamin B-12) amitriptyline 25 mg tablet 25 mg PO QHS #90 tab 03/07/21 10/05/21 Rx fluticasone furoate 100 1 inh INHALATION DAILY #60 ea 03/07/21 10/05/21 Rx mcg-vilanterol 25 mcg/dose inhalation powder (Breo Ellipta) glucosamine sulfate 2KCl 1,000 mg 2,000 mg PO BID tab 03/07/21 10/05/21 History tablet (Glucosamine Relief) ipratropium 0.5 mg-albuterol 3 mg 3 ml IH Q6H PRN #180 ml 03/07/21 10/05/21 Rx (2.5 mg base)/3 mL nebulization soln lisinopril 20 mg tablet 20 mg PO DAILY #90 tab 03/07/21 10/05/21 Rx alendronate 70 mg tablet (Fosamax) 70 mg PO QWEEK #13 tab 05/22/21 10/05/21 Rx omeprazole 40 mg capsule,delayed 40 mg PO DAILY #90 tab-cap 06/19/21 10/05/21 Rx release albuterol sulfate 90 mcg/actuation 2 puff IH Q6H PRN #18 gm 09/19/21 10/05/21 Rx aerosol inhaler (ProAir HFA) gabapentin 300 mg capsule 300 mg PO TID #270 tab-cap 09/19/21 10/05/21 Rx ibuprofen 600 mg tablet 600 mg PO TID PRN #30 tab 09/19/21 10/05/21 Rx simvastatin 20 mg tablet (Zocor) 20 mg PO HS #90 tab 09/19/21 10/05/21 Rx Exam Narrative Exam Narrative: Pleasant, conversational. Const General: cooperative, comfortable and no acute distress Orientation: alert, awake and oriented x3 [facility] Head: normal to inspection, normocephalic and atraumatic Ears: hearing grossly abnormal bilaterally (mild decreased acuity) Mouth: moist mucous membranes Eyes General: appearance normal, both eyes and all related structures Conjunctivae: conjunctival abnormality bilaterally (Pale palpebral conjunctivae) Sclera: sclerae normal Neck Neck: normal visual inspection, full ROM, no meningeal signs and no JVD Resp Effort & Inspection: normal respiratory effort and able to speak in complete sentences Auscultation: diminished lung sounds bilaterally in the lower lung sierra and wheezes (Rare, scattered) Cardio Rate: regular rate Rhythm: regular rhythm GI Inspection: normal to inspection and obesity Palpation: soft, not firm, no guarding, no pulsatile masses and nontender Auscultation: normal bowel sounds Back/Spine/Pelvis Back: No back tenderness Skin General skin exam: no rashes or lesions noted Neuro General: patient alert, patient awake, patient oriented x3 and moves all extremities Cognition: normal cognition Speech: speech normal Extrem General: no calf tenderness and edema Laterality: bilateral (trace) Psych Appearance: grossly normal Mental Status: mental status grossly normal Affect: normal affect Results Labs Result diagrams: 10/05/21 13:01 10/05/21 13:01 Labs: Laboratory Results - last 24 hr 10/05/21 10/05/21 10/05/21 13:01 13:01 13:30 WBC 11.71 H RBC 2.04 L Hgb 6.2 L* Hct 19.5 L* MCV 95.6 H MCH 30.4 MCHC 31.8 L RDW 17.5 H Plt Count 139 MPV 13.9 H Immature Gran % 1.5 Neutrophils % 60.3 Lymphocytes % 23.1 Monocytes % 8.7 Eosinophils % 5.7 Basophils % 0.7 Nucleated RBC % 0 Absolute Neutrophils 7.06 H Absolute Lymphocytes 2.71 Absolute Monocytes 1.02 H Absolute Eosinophils 0.67 Absolute Basophils 0.08 D-Dimer 287 Sodium 137 Potassium 4.6 Chloride 107 Carbon Dioxide 19.7 L Anion Gap 10.3 BUN 46 H Creatinine 1.5 H Estimated GFR/1.73 m2 34.13 Glucose 165 H Calcium 9.4 Magnesium 2.0 Total Bilirubin 0.2 AST 52 H ALT 43 Alkaline Phosphatase 78 Troponin I 51 NT-Pro-B Natriuret Pep 2528 H Total Protein 6.0 L Albumin 3.1 L COVID-19 Source SARS-CoV-2 (PCR) Patient ABO/Rh Antibody Screen Crossmatch 10/05/21 10/05/21 10/05/21 14:10 14:15 16:57 WBC RBC Hgb Hct MCV MCH MCHC RDW Plt Count MPV Immature Gran % Neutrophils % Lymphocytes % Monocytes % Eosinophils % Basophils % Nucleated RBC % Absolute Neutrophils Absolute Lymphocytes Absolute Monocytes Absolute Eosinophils Absolute Basophils D-Dimer Sodium Potassium Chloride Carbon Dioxide Anion Gap BUN Creatinine Estimated GFR/1.73 m2 Glucose Calcium Magnesium Total Bilirubin AST ALT Alkaline Phosphatase Troponin I 53 NT-Pro-B Natriuret Pep Total Protein Albumin COVID-19 Source Nasal/Nares SARS-CoV-2 (PCR) POSITIVE A* Patient ABO/Rh A Negative Antibody Screen NEGATIVE Crossmatch See Detail Last Vital Signs Temp 36.2 C L 10/05/21 17:52 Pulse 72 10/05/21 17:52 Resp 17 10/05/21 17:52 BP 122/70 10/05/21 17:52 Pulse Ox 97 10/05/21 17:52
[2021-10-05] MEDS: Normal Saline Flush 10 ML SYR (21:29)
[2021-10-05 21:40] LABS: Prothrombin Time 10.4 sec (9.3-11.0)
[2021-10-05] MEDS: Simvastatin 20 MG TAB PO (22:21)
[2021-10-05] MEDS: Amitriptyline 25 MG TAB PO (22:22)
[2021-10-05] MEDS: Gabapentin 300 MG CAP PO (22:22)
[2021-10-05] MEDS: Metoprolol 50 MG TAB PO (22:22)
[2021-10-05 23:08] LABS: Vitamin B12 871 pg/mL (193-986)
[2021-10-06 05:47] VITALS: BP 110/55; PULSE 73; RESP 18; TEMP 36.8; O2SAT 93
[2021-10-06 07:03] LABS: Abs Immature Grans 0.24 10^3/uL (0.0-0.06); Absolute Basophil Count 0.05 10^3/uL (0.0-0.2); Absolute Monocyte Count 0.65 10^3/uL (0.1-0.8); Basophils % 0.4; Eosinophils % 0.2; HCT 23.7 % (36.0-46.0); HGB 7.7 g/dL (11.2-15.7); Immature Grans % 1.8; Lymphocytes % 9.5; MCH 29.8 pg (27.0-33.0); MCHC 32.5 % (32.0-36.0); MCV 91.9 fL (80-95); Monocytes % 4.9; Neutrophils % 83.2; Nucleated RBC 0 %; Platelet Count 153 10^3/uL (130-400); RBC 2.58 10^6/uL (3.93-5.22); RDW 16.7 % (11.7-14.6); RDW-SD 53.8 fL; WBC 13.33 10^3/uL (4.4-10.8)
[2021-10-06 07:07] LABS: Absolute Eosinophil Count 0.03 10^3/uL (0.0-0.7); Absolute Lymphocyte Count 1.27 10^3/uL (1.2-3.4); Absolute Neutrophil Count 11.09 10^3/uL (1.2-6.7)
[2021-10-06 07:18] LABS: ALT 52 U/L (14-59); AST 47 U/L (15-37); Albumin 3.1 g/dL (3.4-5.0); Alkaline Phosphatase 79 U/L (46-116); Anion Gap 6.7 mmol/L (3-11); BUN 40 mg/dL (7-18); Bilirubin, Total 0.5 mg/dL (0.2-1.0); CO2 20.3 mmol/L (21.0-32.0); CREATININE 1.4 mg/dL (0.55-1.02); Calcium 9.7 mg/dL (8.5-10.1); Chloride 109 mmol/L (98-107); Estimated GFR 36.96 (mL/min/1.73m2); Glucose 205 mg/dL (74-106); Potassium 4.9 mmol/L (3.5-5.1); Sodium 136 mmol/L (136-145); Total Protein 6.1 g/dL (6.4-8.2)
[2021-10-06 07:39] VITALS: O2SAT 95
[2021-10-06] MEDS: Metoprolol 50 MG TAB PO (08:18)
[2021-10-06] MEDS: Gabapentin 300 MG CAP PO ×2 (08:19→14:10)
[2021-10-06] MEDS: Omeprazole 20 MG CAPCR 40 MG PO (08:19)
[2021-10-06] MEDS: Docusate Sodium 100 MG CAP PO (08:19)
[2021-10-06 08:23] VITALS: BP 105/52; PULSE 83; RESP 18; TEMP 36.7; O2SAT 94
[2021-10-06] MEDS: Budesonide/Formoterol 80/4.5 6.9 GM 60 PUFF INH IH (09:13)
[2021-10-06 09:49] LABS: Lab Add On Test DONE
[2021-10-06 10:03] LABS: Iron 34 ug/dL (50-170); Total Iron Binding Capacity 401 ug/dL (250-450); Transferrin Sat 8 % (15-50)
[2021-10-06 12:16] LABS: HCT 24.3 % (36.0-46.0); HGB 7.9 g/dL (11.2-15.7)
[2021-10-06 14:15] VITALS: BP 112/47; PULSE 78; RESP 16; TEMP 36.5; O2SAT 95
--- NOTE | 2021-10-06 16:43 | DSE_ITS ---
Date of service: 10/06/21 Time of Service: 16:43 DS: Diagnosis Discharge Diagnosis (1) Symptomatic anemia: Status: Acute (2) GI bleed: Status: Resolved (3) COVID-19: Status: Acute (4) COPD (chronic obstructive pulmonary disease): Status: Chronic (5) Essential hypertension: Status: Acute (6) Depressive disorder: Discharge Plan Disposition Patient Disposition: HOME Condition: Stable Discharge Details Reason For Visit: Critical Anemia,COVID + Status Admit Date/Time: 10/05/21 18:34 Admit Provider: Semaj Bryson Attending Provider: Semaj Bryson Primary Care Provider: Ronel Oliver Hospital Course Hospital Course: Ms Wade is a 71 year old female with PMHx of non-oxygen dependent COPD, chronic anemia, hypertension, hyperlipidemia, who was a patient on [facility] Hospitalist service from 10/05/21 until 10/06/21 for shortness of breath, initially suspected to be due to a COPD exacerbation, but actually due to symptomatic anemia, which is acute on chronic. She reports dark stools at home, even though she stopped taking iron at home. She received a transfusion of 2 units of pRBCs with her hemoglobin coming up from 6.2 to 7.7 and then to 7.9 and remaining stable. There were no BMs during her hospitalization. The patient will need outpatient endoscopy. Her dose of PPI was doubled and carafate was initiated on discharge. She is instructed to hold her aspirin and NSAIDs on discharge. As far as her respiratory status, she tested positive for COVID-19. She received a dose of solumedrol in the ED on presentation for presumed exacerbation of COPD and was briefly on 2L of O2 by DE, but her O2 requirement had resolved with blood transfusion and she had no symptoms of COVID-19 since presentation. Because of her underlying diagnosis of COPD, she is eligible to receive monoclonal antibody therapy for COVID-19 prior to discharge. She has no respiratory sx and no oxygen requirement at the time of discharge. She is ready for discharge home today. Care for patient as well as completion of her discharge summary took 45 minutes to complete. Home Meds and New Rx's Prescriptions: New Acetaminophen [Tylenol] 325 - 650 mg PO DIRECTED PRNQty: 0 0RF sucralfate [Carafate] 1 gram tablet 1 g PO QACHS Qty: 120 0RF Continued ferrous sulfate 325 mg (65 mg iron) tablet 325 mg PO DAILY Qty: 90 3RF polyethylene glycol 3350 [Miralax] 17 gram/dose powder 17 g PO DAILY PRN0RF Hold Instructions: Home Medication placed on hold at Doctor's office (DME) incontinence pad, liner, disp Pad See Rx Instructions .ROUTE .MEDSUPPLY Qty: 48 3RF Rx Instructions: As directed cyanocobalamin (vitamin B-12) [Vitamin B-12] 500 mcg tablet 1,000 mcg PO DAILY Qty: 60 11RF glucosamine sulfate 2KCl [Glucosamine Relief] 1,000 mg tablet 2,000 mg PO BID 0RF Rx Instructions: administer with meals amitriptyline 25 mg tablet 25 mg PO QHS Qty: 90 4RF Breo Ellipta 100-25 mcg/dose blister with device 1 inh inhalation DAILY Qty: 60 11RF ipratropium-albuterol 0.5 mg-3 mg(2.5 mg base)/3 mL solution for nebulization 3 ml IH Q6H PRN (Reason: copd) Qty: 180 3RF lisinopril 20 mg tablet 20 mg PO DAILY Qty: 90 4RF spacer 1 Q6H PRN Qty: 1 0RF Rx Instructions: Spacer to go with albuterol inhaler docusate sodium [Colace] 100 mg capsule 100 mg PO BID Qty: 60 4RF metoprolol tartrate 50 mg tablet 50 mg PO BID Qty: 180 4RF alendronate [Fosamax] 70 mg tablet 70 mg PO QWEEK Qty: 13 4RF albuterol sulfate [ProAir HFA] 90 mcg/actuation HFA aerosol inhaler 2 puff IH Q6H PRN (Reason: shortness of breath or wheezing) Qty: 18 4RF gabapentin 300 mg capsule 300 mg PO TID Qty: 270 4RF simvastatin [Zocor] 20 mg tablet 20 mg PO HS Qty: 90 4RF acetaminophen 500 mg tablet 500 mg PO Q6H PRN PRN (Reason: pain) Qty: 40 3RF Changed omeprazole 40 mg capsule,delayed release(DR/EC) 40 mg PO BID Qty: 60 4RF Discontinued aspirin [Aspir-81] 81 MG tablet,delayed release (DR/EC) 81 mg PO DAILY 0RF sennosides [Senokot] 8.6 mg tablet 8.6 mg PO BID Qty: 60 3RF Hold Instructions: Home Medication placed on hold at Doctor's office ibuprofen 600 mg tablet 600 mg PO TID PRN (Reason: pain) Qty: 30 3RF Discharge Instructions Instructions: Diet for Stomach Ulcers and Gastritis (ED), Anemia (DC), COVID-19 (Coronavirus Disease 2019) (DC) Additional Instructions: You should self-isolate for the next 5 days. Prior to discontinuation of your quarantine, do a rapid test. If negative, you are safe to come off of kiana rantine. If positive, you should only be out in society while wearing an N95 or a KN95 mask - or you should quarantine for 5 more days. Return to the hospital if you develop worsening in your breathing, if your pulse oximetry drops below 89 % and stays there, if you develop chest pain, recurrent bleeding, or nausea. Follow up with your PCP in 1-2 weeks. Follow up with general surgery in 2 weeks. Bloodwork in 2 weeks. Stand Alone Forms: Nursing Discharge Form Referrals: Ronel Oliver NP [Primary Care Provider] - Kimberly Montes De Oca DO [OSTEOPATHIC DOCTOR] - (chronic GI bleeding; admitted for symptomatic anemia. Asymptomatic incidentally found COVID-19) Activity:: Activity as Tolerated Equipment/Supplies:: pulse oximeter Diet:: ulcer diet Discharge Orders Discharge Orders: Discharge Order (Routine); Ordered 10/06/21 Ordered By: Rona Felix DS: Summary Time Spent with Patient providing and/or coordinating discharge services: Greater than 30 minutes Status at Discharge Functional status at discharge: uses cane/walker Overall status at discharge: patient is back to baseline Mental Status: mental status grossly normal Speech and Movement: speech and movement normal Mood: congruent mood Affect: normal affect Exam Narrative Exam Narrative: General: Pleasant elderly female who is in no respiratory distress on room air, A&Ox3 HEENT: EOMI, MMM Heart: RRR, no m/r/g Lungs: CTAB Abdomen: soft, nontender, nondistended Extremities: trace edema BLEs. Psych Mental Status: mental status grossly normal Speech and Movement: speech and movement normal Mood: congruent mood Affect: normal affect DS: Data Vitals/I&O Vitals and I&O: Vital Signs Temperature 36.5 C 02/18/22 14:15 Temperature Source Tympanic 10/06/21 14:15 Pulse 78 10/06/21 14:15 Pulse Rhythm Regular 10/06/21 16:15 Pulse 77 10/05/21 18:50 Respiratory Rate 16 10/06/21 14:15 Respiratory Effort Non-Labored 10/06/21 16:15 Respiratory Depth Normal 10/06/21 16:15 Respiratory Pattern Normal 10/06/21 16:15 Blood Pressure 112/47 L 10/06/21 14:15 Blood Pressure Mean 82 10/05/21 17:31 Pulse Oximetry 95 10/06/21 14:15 Oxygen Delivery Method Room Air 10/06/21 14:15 Oxygen Flow Rate 0 10/06/21 14:15 Pain Level 0 10/06/21 14:15 Intake & Output 10/05/21 10/06/21 10/06/21 23:59 11:59 23:59 Intake Total 250 / 250 344 / 344 Balance 250 / 250 344 / 344 Weight 102.058 kg Intake: Blood Product 250 / 250 344 / 344 Rbc Leuko Reduced Unit 250 / 250 [id number] Rbc Leuko Reduced Unit 344 / 344 [id number] Other: Comment Unable to check Data Completed and Pending Completed studies during hospitalization [Text1]: CXR: No acute pulmonary findings. Labs on day of discharge: Labs from last 24 hours 10/06/21 10/06/21 10/06/21 12:00 06:38 06:38 WBC RBC Hgb 7.9 L Hct 24.3 L MCV MCH MCHC RDW Plt Count MPV Immature Gran % Neutrophils % Lymphocytes % Monocytes % Eosinophils % Basophils % Nucleated RBC % Absolute Neutrophils Absolute Lymphocytes Absolute Monocytes Absolute Eosinophils Absolute Basophils PT INR Sodium Potassium Chloride Carbon Dioxide Anion Gap BUN Creatinine Estimated GFR/1.73 m2 Glucose Calcium Iron 34 L TIBC 401 Transferrin % Sat 8 L Total Bilirubin AST ALT Alkaline Phosphatase Troponin I Total Protein Albumin Vitamin B12 Add-On Test Request DONE Patient ABO/Rh Antibody Screen Crossmatch 10/06/21 10/06/21 10/05/21 06:38 06:38 Unknown WBC 13.33 H RBC 2.58 L Hgb 7.7 L Hct 23.7 L D MCV 91.9 D MCH 29.8 MCHC 32.5 RDW 16.7 H Plt Count 153 MPV Immature Gran % 1.8 Neutrophils % 83.2 Lymphocytes % 9.5 Monocytes % 4.9 Eosinophils % 0.2 Basophils % 0.4 Nucleated RBC % 0 Absolute Neutrophils 11.09 H Absolute Lymphocytes 1.27 Absolute Monocytes 0.65 Absolute Eosinophils 0.03 Absolute Basophils 0.05 PT INR Sodium 136 Potassium 4.9 Chloride 109 H Carbon Dioxide 20.3 L Anion Gap 6.7 BUN 40 H Creatinine 1.4 H Estimated GFR/1.73 m2 36.96 Glucose 205 H Calcium 9.7 Iron TIBC Transferrin % Sat Total Bilirubin 0.5 AST 47 H ALT 52 Alkaline Phosphatase 79 Troponin I Total Protein 6.1 L Albumin 3.1 L Vitamin B12 Add-On Test Request CANT BE DONE Patient ABO/Rh Antibody Screen Crossmatch 10/05/21 10/05/21 10/05/21 21:00 21:00 21:00 WBC RBC Hgb Hct MCV MCH MCHC RDW Plt Count MPV Immature Gran % Neutrophils % Lymphocytes % Monocytes % Eosinophils % Basophils % Nucleated RBC % Absolute Neutrophils Absolute Lymphocytes Absolute Monocytes Absolute Eosinophils Absolute Basophils PT 10.4 INR 1.0 Sodium Potassium Chloride Carbon Dioxide Anion Gap BUN Creatinine Estimated GFR/1.73 m2 Glucose Calcium Iron Cancelled TIBC Cancelled Transferrin % Sat Total Bilirubin AST ALT Alkaline Phosphatase Troponin I Total Protein Albumin Vitamin B12 871 Add-On Test Request Patient ABO/Rh Antibody Screen Crossmatch 10/05/21 10/05/21 16:57 14:15 WBC RBC Hgb Hct MCV MCH MCHC RDW Plt Count MPV Immature Gran % Neutrophils % Lymphocytes % Monocytes % Eosinophils % Basophils % Nucleated RBC % Absolute Neutrophils Absolute Lymphocytes Absolute Monocytes Absolute Eosinophils Absolute Basophils PT INR Sodium Potassium Chloride Carbon Dioxide Anion Gap BUN Creatinine Estimated GFR/1.73 m2 Glucose Calcium Iron TIBC Transferrin % Sat Total Bilirubin AST ALT Alkaline Phosphatase Troponin I 53 Total Protein Albumin Vitamin B12 Add-On Test Request Patient ABO/Rh A Negative Antibody Screen NEGATIVE Crossmatch See Detail PFSH All Active Problems (Updated 10/06/21 @ 18:02 by Rona Felix MD) Symptomatic anemia (Acute) COVID-19 (Acute) 09/2021, immunized Osteoporosis (Chronic) Insomnia (Acute) Right knee sprain (Acute) Post-nasal drainage (Acute) GERD (gastroesophageal reflux disease) (Chronic 12/19/14) COPD (chronic obstructive pulmonary disease) (Chronic) Total urinary incontinence (Chronic) Illiterate (Chronic) Dyspnea on exertion (Chronic) Anemia (Chronic) Osteoarthritis (Chronic) knees, hands Hyperlipidemia (Acute) Morbid obesity (Acute 12/19/14) Essential hypertension (Acute) Anxiety (Acute) Medical History Acute carpal tunnel syndrome of right wrist Chronic obstructive lung disease COPD exacerbation Depressive disorder Gastroesophageal reflux disease History of tobacco use 10-15 year hx 1/2- 1 PPD Hypercalcemia (09/23/15) Hyperlipidemia Iron deficiency anemia due to chronic blood loss (01/11/15) GHISLAINE (obstructive sleep apnea) (12/19/14) Severe anemia (12/19/14) Surgical History Cholecystectomy (05/28/73) Hx of colonoscopy Hx of esophagogastroduodenoscopy Status post cholecystectomy Family History Mother Hypertension Father Hyperlipidemia Hypertension Stroke Sister No problems noted. Sister No problems noted. Sister Heart disease Hyperlipidemia Hypertension Stroke Brother Hyperlipidemia Hypertension Son Depression Hypertension Son Depression Hyperlipidemia Hypertension Social History Smoking/Tobacco Use Status: Former Tobacco Use Quit Date: 08/19/00 Tobacco: How many years used: 20 Smoking risk assessment performed?: Yes Alcohol Intake: never Drug use: Never Substance use type: does not use Housing: apartment Communication Needs: Cannot Read Current gender identity: female What is your relationship status?: How often do you talk on the phone with friends or family?: twice per week How often do you get together with friends or relatives?: decline to answer How often do you attend evangelical or temple services?: decline to answer Do you belong to any clubs or organized social groups?: decline to answer Panel score (0-1 are the most socially isolated patients): 0 What type of physical activity do you participate in: decline to answer Duration: < 15 minutes/day Frequency: daily Delia/Christian: No preference Special delia needs: No Drive intox or ride w/intox laundry route driver: No Do you feel safe at home: Yes Do you feel safe in your relationship?: Yes
[2021-10-06 17:22] VITALS: PULSE 76
[2021-10-06 18:51] VITALS: PULSE 76
== END 2021-10-06 19:00 | disposition home or self-care (01) | DRG 811 ==
LOC: ER 18:45 → MS 20:11
PROVIDERS: Internal Medicine; Admitting Provider Family Medicine; Emergency Provider Physician Assistant; PCP Nurse Practitioner; Visit Provider Family Medicine
DX: D64.9 Anemia, unspecified (principal); U07.1 COVID-19; K92.2 Gastrointestinal hemorrhage, unspecified; J43.9 Emphysema, unspecified; I10 Essential (primary) hypertension; F41.8 Other specified anxiety disorders; E78.5 Hyperlipidemia, unspecified; E66.01 Morbid (severe) obesity due to excess calories; Z68.38 Body mass index [BMI] 38.0-38.9, adult; R32 Unspecified urinary incontinence; M81.0 Age-related osteoporosis without current pathological fracture; G47.00 Insomnia, unspecified; K21.9 Gastro-esophageal reflux disease without esophagitis; Z55.0 Illiteracy and low-level literacy
CPT/HCPCS: 36415; 80053; 86850; 86900; 86901; 86920; 87635; 93005; 94640; 96374; 99291; 71045; 82607; 83540; 83550; 83735; 83880; 84484; 85014; 85018; 85025; 85379; 85610; 93010; 94667; 99223; 99239; J2930; P9016

== ENCOUNTER 2021-10-06 23:51 | Emergency (ER) | payer MEDICARE, SELFPAY ==
--- NOTE | 2021-10-06 23:45 | RT.EKG_ITS ---
APPROVED REPORT Exam: Resting ECG Reason for Exam: sob Patient Location: E HR:88 bpm ECG Measurements Heart Rate 88 AXIS OH 167 P 79 QRSd 91 QRS 56 QT 338 T 88 QTc 410 Conclusion Sinus rhythm...normal P axis, V-rate 60- 99 Repol abnrm suggests ischemia, diffuse leads...ST-T neg, ant/lat/inf
[2021-10-06 23:55] VITALS: PULSE 90; RESP 25; TEMP 36.9; O2SAT 100
[2021-10-06 23:59] VITALS: PULSE 91; RESP 24; O2SAT 100
[2021-10-07] VITALS (21 sets, daily range): BP systolic 100–167; BP diastolic 28–116; PULSE 81–91; RESP 14–29; TEMP 36.7; O2SAT 92–100
--- NOTE | 2021-10-07 00:03 | ED.GENADUL_ITS ---
Discharge Plan Disposition Patient Disposition: HOME Condition: Stable Discharge Details Clinical Impression: COPD (chronic obstructive pulmonary disease), COVID, Shortness of breath Primary Care Provider: Ronel Oliver ED Provider: Alen Giordano Home Meds and New Rx's Prescriptions: New prednisone 20 mg tablet 60 mg PO DAILY 4 Days Qty: 12 0RF levofloxacin 750 mg tablet 750 mg PO DAILY Qty: 5 0RF furosemide [Lasix] 20 mg tablet 20 mg PO QAM Qty: 10 0RF Continued ferrous sulfate 325 mg (65 mg iron) tablet 325 mg PO DAILY Qty: 90 3RF polyethylene glycol 3350 [Miralax] 17 gram/dose powder 17 g PO DAILY PRN0RF Hold Instructions: Home Medication placed on hold at Doctor's office (DME) incontinence pad, liner, disp Pad See Rx Instructions .ROUTE .MEDSUPPLY Qty: 48 3RF Rx Instructions: As directed cyanocobalamin (vitamin B-12) [Vitamin B-12] 500 mcg tablet 1,000 mcg PO DAILY Qty: 60 11RF glucosamine sulfate 2KCl [Glucosamine Relief] 1,000 mg tablet 2,000 mg PO BID 0RF Rx Instructions: administer with meals amitriptyline 25 mg tablet 25 mg PO QHS Qty: 90 4RF Breo Ellipta 100-25 mcg/dose blister with device 1 inh inhalation DAILY Qty: 60 11RF ipratropium-albuterol 0.5 mg-3 mg(2.5 mg base)/3 mL solution for nebulization 3 ml IH Q6H PRN (Reason: copd) Qty: 180 3RF lisinopril 20 mg tablet 20 mg PO DAILY Qty: 90 4RF spacer 1 Q6H PRN Qty: 1 0RF Rx Instructions: Spacer to go with albuterol inhaler docusate sodium [Colace] 100 mg capsule 100 mg PO BID Qty: 60 4RF metoprolol tartrate 50 mg tablet 50 mg PO BID Qty: 180 4RF alendronate [Fosamax] 70 mg tablet 70 mg PO QWEEK Qty: 13 4RF albuterol sulfate [ProAir HFA] 90 mcg/actuation HFA aerosol inhaler 2 puff IH Q6H PRN (Reason: shortness of breath or wheezing) Qty: 18 4RF gabapentin 300 mg capsule 300 mg PO TID Qty: 270 4RF simvastatin [Zocor] 20 mg tablet 20 mg PO HS Qty: 90 4RF Acetaminophen [Tylenol] 325 - 650 mg PO DIRECTED PRNQty: 0 0RF omeprazole 40 mg capsule,delayed release(DR/EC) 40 mg PO BID Qty: 60 4RF sucralfate [Carafate] 1 gram tablet 1 g PO QACHS Qty: 120 0RF acetaminophen 500 mg tablet 500 mg PO Q6H PRN PRN (Reason: pain) Qty: 40 3RF Discharge Instructions Additional Instructions: Your symptoms are likely due to your copd and covid. Your vital signs here were normal and you did not require oxygen start taking the prednisone and levofloxacin for your copd follow up with your primary care provider within 10 days and discuss continuing the lasix if you feel more ill, have worsening shortness of breath or pain return to the emergency department Medical Decision Making 71 yo female with hx of copd not on home o2, hld, htn, gerd, who was discharged yesterday after being admitted for symptomatic anemia in setting of chronic gi bleed and also found to be covid positive, did not require oxygen and is vaccinated so was given MAB infusion for this, returns with ems tonight with shortness of breath. She states since being home she has felt jittery but around 6pm she started to feel shortness of breath that continued throughout the night and so she called ems. EMS noted a room air saturation in the 70's so administered NRB and transported her here. She denies fevers, chills, pain. She is off oxygen during my exam speaking in full sentences without distress and o2 saturation is in the mid 90's. Has no leg pain or swelling or calf tenderness. She has clear lung sounds. Unclear etiology for her hypoxia with ems as she seems now to be oxygenating fine and has no respiratory symptoms, will evaluate for worsening anemia, nstemi and monitor oxygen level pt remains stable and asymptomatic with no oxygen requirement. She has had a dry cough for a few days she states. Her labs show elevated probnp similar to her recent probnp, denies history of being on lasix. Her bedside u/s shows normal appearing EF and normal sized RV, does have bilateral b lines so suspect this could be a component of chf. She has a negative troponin 4 hours after symptom onset so do not feel delta troponin indicated. Discussed findings with pt and discussed observation admission vs outpatient therapy and given continued stable vitals and feeling well she prefers outpatient management which I feel is reasonable. Given her history of copd and increased cough will cover with few days of prednisone and levofloxacin. Given the increased probnp and b lines will start low dose lasix as well and have her f/u with her pcp for possible outpatient echo. Discussed return precautions at [facility] as well Differential Diagnosis Differential Diagnosis: anemia, covid, copd, anxiety Medical Records Medical records reviewed: Yes I reviewed the patient's medical records. Lab Data Lab results reviewed: Yes I reviewed the patient's lab results. ECG Data Attestation: I personally reviewed and interpreted this ECG (s) as follows: Prior ECG tracings: available for review Interpretation: sinus rhythm, rate of 88, no acute st t wave changes compared to old ekg HPI General Mode of arrival: EMS . Date/Time Provider Initiated Documentation: 10/06/21 23:52 . Limitations to Documentation: no limitations . Information obtained by: patient . History of Present Illness 71 year old F presents to the emergency department with the chief complaint of shortness of breath, described as moderate, Patient started experiencing this hour(s) (5) improves with No relieving factors improve symptom(s), No exacerbating factors reported . Patient notes denies fever/chills. Patient did receive the following treatments prior to arrival, other (oxygen) Related Data Home Medications Medication Instructions Recorded Confirmed polyethylene glycol 3350 17 17 g PO DAILY PRN 06/23/20 10/07/21 gram/dose oral powder (Miralax) docusate sodium 100 mg capsule 100 mg PO BID #60 cap 08/24/20 10/07/21 (Colace) metoprolol tartrate 50 mg tablet 50 mg PO BID #180 tab-cap 08/24/20 10/07/21 ferrous sulfate 325 mg (65 mg 325 mg PO DAILY #90 tab 10/20/20 10/07/21 iron) tablet acetaminophen 500 mg tablet 500 mg PO Q6H PRN PRN #40 tab 11/01/20 10/07/21 incontinence pad, liner, disp #48 ea 11/18/20 03/07/21 cyanocobalamin (vitamin B-12) 500 1,000 mcg PO DAILY #60 tab 01/03/21 10/07/21 mcg tablet (Vitamin B-12) amitriptyline 25 mg tablet 25 mg PO QHS #90 tab 03/07/21 10/07/21 fluticasone furoate 100 1 inh INHALATION DAILY #60 ea 03/07/21 10/07/21 mcg-vilanterol 25 mcg/dose inhalation powder (Breo Ellipta) glucosamine sulfate 2KCl 1,000 mg 2,000 mg PO BID tab 03/07/21 10/07/21 tablet (Glucosamine Relief) ipratropium 0.5 mg-albuterol 3 mg 3 ml IH Q6H PRN #180 ml 03/07/21 10/07/21 (2.5 mg base)/3 mL nebulization soln lisinopril 20 mg tablet 20 mg PO DAILY #90 tab 03/07/21 10/07/21 alendronate 70 mg tablet (Fosamax) 70 mg PO QWEEK #13 tab 05/22/21 10/07/21 albuterol sulfate 90 mcg/actuation 2 puff IH Q6H PRN #18 gm 09/19/21 10/07/21 aerosol inhaler (ProAir HFA) gabapentin 300 mg capsule 300 mg PO TID #270 tab-cap 09/19/21 10/07/21 simvastatin 20 mg tablet (Zocor) 20 mg PO HS #90 tab 09/19/21 10/07/21 Acetaminophen [Tylenol] 325 - 650 mg PO DIRECTED PRN #0 10/06/21 omeprazole 40 mg capsule,delayed 40 mg PO BID #60 tab-cap 10/06/21 10/07/21 release sucralfate 1 gram tablet (Carafate) 1 g PO QACHS #120 tab 10/06/21 10/07/21 furosemide 20 mg tablet (Lasix) 20 mg PO QAM #10 tab 10/07/21 levofloxacin 750 mg tablet 750 mg PO DAILY #5 tab 10/07/21 prednisone 20 mg tablet 60 mg PO DAILY 4 Days #12 tab 10/07/21 Previous Rx's Medication Instructions Recorded docusate sodium 100 mg capsule 100 mg PO BID #60 cap 08/24/20 (Colace) metoprolol tartrate 50 mg tablet 50 mg PO BID #180 tab-cap 08/24/20 ferrous sulfate 325 mg (65 mg 325 mg PO DAILY #90 tab 10/20/20 iron) tablet acetaminophen 500 mg tablet 500 mg PO Q6H PRN PRN #40 tab 11/01/20 incontinence pad, liner, disp #48 ea 11/18/20 cyanocobalamin (vitamin B-12) 500 1,000 mcg PO DAILY #60 tab 01/03/21 mcg tablet (Vitamin B-12) amitriptyline 25 mg tablet 25 mg PO QHS #90 tab 03/07/21 fluticasone furoate 100 1 inh INHALATION DAILY #60 ea 03/07/21 mcg-vilanterol 25 mcg/dose inhalation powder (Breo Ellipta) ipratropium 0.5 mg-albuterol 3 mg 3 ml IH Q6H PRN #180 ml 03/07/21 (2.5 mg base)/3 mL nebulization soln lisinopril 20 mg tablet 20 mg PO DAILY #90 tab 03/07/21 alendronate 70 mg tablet (Fosamax) 70 mg PO QWEEK #13 tab 05/22/21 albuterol sulfate 90 mcg/actuation 2 puff IH Q6H PRN #18 gm 09/19/21 aerosol inhaler (ProAir HFA) gabapentin 300 mg capsule 300 mg PO TID #270 tab-cap 09/19/21 simvastatin 20 mg tablet (Zocor) 20 mg PO HS #90 tab 09/19/21 Acetaminophen [Tylenol] 325 - 650 mg PO DIRECTED PRN #0 10/06/21 omeprazole 40 mg capsule,delayed 40 mg PO BID #60 tab-cap 10/06/21 release sucralfate 1 gram tablet (Carafate) 1 g PO QACHS #120 tab 10/06/21 furosemide 20 mg tablet (Lasix) 20 mg PO QAM #10 tab 10/07/21 levofloxacin 750 mg tablet 750 mg PO DAILY #5 tab 10/07/21 prednisone 20 mg tablet 60 mg PO DAILY 4 Days #12 tab 10/07/21 Allergies Allergy/AdvReac Type Severity Reaction Status Date / Time hydrocodone [Hydrocodone] AdvReac Intermediate NAUSEA Verified 10/07/21 00:02 General Stated Complaint: SOB TIANA: 2 Review of Systems All systems reviewed & are unremarkable except as noted in HPI and below Constitutional Constitutional: Denies chills, Denies fever(s) and Denies weakness ENT Ears, Nose, Mouth, and Throat: Denies change in voice Cardiovascular Cardiovascular: Denies chest pain Respiratory Respiratory: Denies cough Gastrointestinal Gastrointestinal: Denies abdominal pain, Denies nausea and Denies vomiting Genitourinary Genitourinary: Denies dysuria Musculoskeletal Musculoskeletal: Denies joint swelling Neurologic Neurologic: Denies weakness PFSH All Active Problems (Updated 10/07/21 @ 01:24 by Alen Giordano MD) COVID (Acute) Shortness of breath (Acute) Symptomatic anemia (Acute) COVID-19 (Acute) 09/2021, immunized Osteoporosis (Chronic) Insomnia (Acute) Right knee sprain (Acute) Post-nasal drainage (Acute) GERD (gastroesophageal reflux disease) (Chronic 12/19/14) COPD (chronic obstructive pulmonary disease) (Chronic) Total urinary incontinence (Chronic) Illiterate (Chronic) Dyspnea on exertion (Chronic) Anemia (Chronic) Osteoarthritis (Chronic) knees, hands Hyperlipidemia (Acute) Morbid obesity (Acute 12/19/14) Essential hypertension (Acute) Anxiety (Acute) Medical History Acute carpal tunnel syndrome of right wrist Chronic obstructive lung disease COPD exacerbation Depressive disorder Gastroesophageal reflux disease History of tobacco use 10-15 year hx 1/2- 1 PPD Hypercalcemia (09/23/15) Hyperlipidemia Iron deficiency anemia due to chronic blood loss (01/11/15) GHISLAINE (obstructive sleep apnea) (12/19/14) Severe anemia (12/19/14) Surgical History Cholecystectomy (05/28/73) Hx of colonoscopy Hx of esophagogastroduodenoscopy Status post cholecystectomy Family History Mother Hypertension Father Hyperlipidemia Hypertension Stroke Sister No problems noted. Sister No problems noted. Sister Heart disease Hyperlipidemia Hypertension Stroke Brother Hyperlipidemia Hypertension Son Depression Hypertension Son Depression Hyperlipidemia Hypertension Social History Smoking/Tobacco Use Status: Former Tobacco Use Quit Date: 08/19/00 Tobacco: How many years used: 20 Smoking risk assessment performed?: Yes Alcohol Intake: never Drug use: Never Substance use type: does not use Housing: apartment Communication Needs: Cannot Read Current gender identity: female What is your relationship status?: How often do you talk on the phone with friends or family?: twice per week How often do you get together with friends or relatives?: decline to answer How often do you attend adventist or quaker services?: decline to answer Do you belong to any clubs or organized social groups?: decline to answer Panel score (0-1 are the most socially isolated patients): 0 What type of physical activity do you participate in: decline to answer Duration: < 15 minutes/day Frequency: daily Delia/Moravian: No preference Special delia needs: No Drive intox or ride w/intox trackless trolley driver: No Do you feel safe at home: Yes Do you feel safe in your relationship?: Yes Exam Const General: no acute distress Orientation: alert HENMT Head: normal to inspection Ears: external ears normal General nose exam: external nose normal Mouth: moist mucous membranes Eyes General: appearance normal, both eyes and all related structures Neck Neck: normal visual inspection Resp Effort & Inspection: normal respiratory effort and able to speak in complete sentences Cardio Rate: regular rate Skin General skin exam: no rashes or lesions noted Neuro General: patient alert and patient oriented x3 Extrem General: normal to inspection Psych Mental Status: mental status grossly normal Course Vital Signs Vital signs: Vital Signs Temperature 36.9 C 10/06/21 23:55 Pulse 90 10/06/21 23:55 Respiratory Rate 25 H 10/06/21 23:55 Pulse Oximetry 100 10/06/21 23:55 Temperature 36.9 C 10/06/21 23:55 Pulse 90 10/06/21 23:55 Respiratory Rate 25 H 10/06/21 23:55 Pulse Oximetry 100 10/06/21 23:55 Pain Level 0 10/06/21 23:55
[2021-10-07 00:13] LABS: BE (Venous) -5 mmol/L (-2-3); HCO3 (Venous) 20 mmol/L (23-28); pCO2 (Venous) 36 mmHg (41-51); pH (Venous) 7.36 (7.31-7.41); pO2 (Venous) 147 mmHg
[2021-10-07 00:14] LABS: O2 Sat (Venous) > 99 %
[2021-10-07 00:15] LABS: Abs Immature Grans 0.29 10^3/uL (0.0-0.06); Absolute Basophil Count 0.04 10^3/uL (0.0-0.2); Absolute Eosinophil Count 0.22 10^3/uL (0.0-0.7); Absolute Lymphocyte Count 1.97 10^3/uL (1.2-3.4); Basophils % 0.3; Eosinophils % 1.5; HCT 24.1 % (36.0-46.0); HGB 7.9 g/dL (11.2-15.7); Immature Grans % 1.9; Lymphocytes % 13.2; MCHC 32.8 % (32.0-36.0); MCV 91.6 fL (80-95); MPV 12.3 fL (8.0-11.0); Monocytes % 7.4; Neutrophils % 75.7; Nucleated RBC 0 %; Platelet Count 165 10^3/uL (130-400); RBC 2.63 10^6/uL (3.93-5.22); RDW-SD 54.8 fL; WBC 14.91 10^3/uL (4.4-10.8)
[2021-10-07 00:21] LABS: Absolute Neutrophil Count 11.29 10^3/uL (1.2-6.7)
[2021-10-07 00:40] LABS: Diff Comment RBC Morph Reviewed; Microcytosis 2+; Polychromasia Present
[2021-10-07 00:49] LABS: ALT 52 U/L (14-59); AST 38 U/L (15-37); Albumin 3.3 g/dL (3.4-5.0); Alkaline Phosphatase 78 U/L (46-116); BUN 44 mg/dL (7-18); Bilirubin, Total 0.5 mg/dL (0.2-1.0); CREATININE 1.5 mg/dL (0.55-1.02); Calcium 9.5 mg/dL (8.5-10.1); Chloride 106 mmol/L (98-107); Estimated GFR 34.13 (mL/min/1.73m2); Glucose 185 mg/dL (74-106); Magnesium 1.9 mg/dL (1.8-2.4); NT-proBNP 3607 pg/mL (<300); Potassium 4.3 mmol/L (3.5-5.1); Sodium 137 mmol/L (136-145); Total Protein 6.4 g/dL (6.4-8.2); Troponin I < 50 ng/L (<or=60)
[2021-10-07] MEDS: predniSONE 20 MG TAB 60 MG PO (01:36)
[2021-10-07] MEDS: levoFLOXacin 500 MG, levoFLOXacin 250 MG 750 MG PO (01:37)
== END 2021-10-07 01:56 | disposition home or self-care (01) ==
PROVIDERS: Emergency Provider Emergency Medicine; PCP Nurse Practitioner
DX: U07.1 COVID-19 (principal); J44.9 Chronic obstructive pulmonary disease, unspecified; R06.02 Shortness of breath
CPT/HCPCS: 80053; 82805; 86850; 86900; 86901; 87637; 93005; 99283; 83735; 83880; 84484; 85025; 93010; J7512

== ENCOUNTER 2021-10-31 01:28 | Outpatient (CLI) | payer MEDICARE, SELFPAY ==
[2021-10-31 09:06] LABS: HCT 25.6 % (36.0-46.0); MCH 25.1 pg (27.0-33.0); MCHC 28.1 % (32.0-36.0); MCV 89.2 fL (80-95); MPV 11.6 fL (8.0-11.0); Platelet Count 192 10^3/uL (130-400); RBC 2.87 10^6/uL (3.93-5.22); RDW 19.8 % (11.7-14.6); RDW-SD 61.4 fL
[2021-10-31 09:08] LABS: HGB 7.2 g/dL (11.2-15.7)
[2021-10-31 09:59] LABS: Calculated LDL 35 mg/dL (<100); Cholesterol 106 mg/dL (<200); HDL Cholesterol 48 mg/dL (40-60); Triglyceride 119 mg/dL (<150)
== END 2021-10-31 01:29 | disposition home or self-care (01) ==
LOC: LBO 01:28
PROVIDERS: PCP Nurse Practitioner; Visit Provider Nurse Practitioner
DX: D64.9 Anemia, unspecified (principal); I10 Essential (primary) hypertension
CPT/HCPCS: 36415; 80061; 85027

== ENCOUNTER 2021-11-06 02:06 | Outpatient (CLI) | payer MEDICARE, SELFPAY ==
--- NOTE | 2021-11-06 15:05 | DI.US_ITS ---
APPROVED REPORT EXAM: Comprehensive 2D, Doppler, and color-flow Echocardiogram Patient Location: Out-Patient Chip Machine Operator: Christiane Malcolm RDCS (AE) Indications: Dyspne on exertion Other Information Study Quality: Adequate Conclusion Normal left ventricular wall thickness and chamber size. Estimated ejection fraction is 60%. Wall m otion is normal Normal right ventricular size and systolic function The left atrium is mildly to moderately dilated. The right atrium is normal in size Mildly sclerotic trileaflet aortic valve without stenosis or regurgitation Moderately thickened mitral leaflets. Mitral annular calcification. Moderate to severe mitral regur gitation Normal tricuspid valve with mild regurgitation. Estimated right ventricular systolic pressure is 41 mmHg Borderline dilated ascending aorta measuring 3.45 cm Wall motion Left Ventricle The left ventricle is normal size. The left ventricular systolic function is normal. The left ventric ular ejection fraction is within the normal range. Asymmetric septal thickening is noted. Echo findin gs are consistent with a left ventricular outflow tract obstruction. There is normal LV segmental wal l motion. There is no ventricular septal defect visualized. LVEF is 60%. Right Ventricle The right ventricle is normal size. The right ventricular systolic function is normal. The RVSP is 41 .3mmHg. Atria Left atrium is mild to moderately dilated. The right atrium size is normal. The interatrial septum is intact with no evidence for an atrial septal defect. Aortic Valve The Aortic valve is mildly sclerotic. Aortic valve is trileaflet. No hemodynamically significant valv ular aortic stenosis. No aortic regurgitation is present. Trace aortic regurgitation. Mitral Valve The mitral valve is moderately thickened. Mild mitral annular calcification.. No evidence of mitral v alve stenosis. Moderate to severe mitral regurgitation Tricuspid Valve The tricuspid valve is normal in structure. There is no tricuspid valve stenosis. Mild tricuspid regu rgitation. Pulmonic Valve The pulmonary valve is normal in structure. There is no pulmonic valvular stenosis. Trace to mild pul josep regurgitation. Great Vessels The aortic root is normal in size. The ascending aorta is borderline dilated. Aortic arch is not well visualized. IVC is normal in size and collapses >50% with inspiration. Pericardium There is no pericardial effusion. 2D Dimensions IVSD d PLAX 1.56 cm F: 0.6-1.0 LV Vol A2C d MOD 108.5 mL LVPW d PLAX 1.20 cm F: 0.6 - 1.0 LV Vol A4C d MOD 111.4 mL LVID d PLAX 4.61 cm F: 3.8 - 5.2 LA vol/ BSA A2C s A-L 27.5 mL/m2 LVDs 3.00 cm F: 2.2 - 3.5 LA vol/ BSA A4C s A-L 43.9 mL/m2 Ao Root d 2.76 cm F: 2.7 - 3.3 LA Vol/ BSA Biplane s A-L 38.3 mL/m2 RA Area A4C 13.09 cm2 LA Area A4C s MOD 25.80 cm2 RA Vol/ BSA A4C s A-L 15.8 mL/m2 LA Area A2C s MOD 18.50 cm2 Ao Asc Diam d 3.45 cm F: 2.3 - 3.1 LV EF A4C MOD 59.0 % LV EF Teichholz 63.2 % LV EF A2C MOD 59.5 % LVEF (Dawn's) 59.38 % F: 54 - 74 LV EF Biplane MOD 59.4 % LV Volume 82.60 mL F: 46 - 106 SV 66.01 mL LV Volume Index 40.29 mL/m2 F: 29 - 61 SV Index 32.10 mL/m2 LV Vol Biplane MOD 111.2 mL FS 34.15 % M-Mode TAPSE 2.79 cm (M/F) >1.7 LV Diastology MV E' medial 0.066 (>0.07 m/s) E/A Ratio 1.0 LV E/e MED 21.85 (<14) MV E Vmax 1.46 (0.4-1.3 m/s) MV E' lateral 0.090 (>0.1 m/s) MV A Vmax 1.40 (0.4-1.3 m/s) LV E/e LAT 16.15 (<14) MV E/A Ratio 1.01 MV E/E' medial 21.90 MV E/E' lateral 16.18 Aortic Valve LVOT Area 3.03 cm2 AoV Area Vmax 6.13 cm2 LVOT Vmax 4.40 m/s AoV Area/ BSA (Vmax) 2.98 cm2/m2 LVOT Mean [place]. 3.43 m/s OLIVE Mean [place]. 11.48 cm2 LVOT Peak Grad 77.4 mmHg OLIVE Mean [place]. Index 5.58 cm2/m2 LVOT Mean Grad 51.4 mmHg LVOT VTI 0.909 m LVOT Diam s 1.95 cm AoV Vmax 2.18 m/s Velocity Ratio 2.01 AoV Mean [place]. 0.91 m/s AoV Peak Grad 18.9 mmHg LVOT SV 275.92 mL AoV Mean Grad 5.7 mmHg AoV VTI 0.681 m AoV Area VTI 4.05 cm2 AoV Area/ BSA (VTI) 1.97 cm/m2 Mitral Valve MV DT 300 (160-240 msec) MR Vmax 5.65 m/s MV PHT 87 msec MR VTI 1.539 m MV Area PHT 2.53 cm2 MR Peak Grad 127.5 mmHg MV VTI 0.711 m MR Mean Grad 86.8 mmHg MV VTI Annulus 0.742 m MV Area VTI 4.06 (4.0-6.0 cm2) Pulmonary Valve PV Vmax 1.54 (0.5-1.5 m/s) RVOT Peak Gr. 3.61 mmHg PV Peak Grad 9.5 mmHg RVOT Mean Gr. 1.90 mmHg PV Mean Grad 5.1 mmHg RVOT VTI 0.223 m PV VTI 0.274 m RVOT Vmax 0.95 m/s Tricuspid Valve TR Peak Grad 38.3 mmHg TR Vmax 3.10 m/s RA Pressure 3.00 mmHg RVSP (TR) 41.3 mmHg
== END 2021-11-06 02:26 ==
PROVIDERS: PCP Nurse Practitioner; Visit Provider Nurse Practitioner
DX: R06.09 Other forms of dyspnea (principal)
CPT/HCPCS: 93306

== ENCOUNTER → 2021-11-10 09:57 | Outpatient (BNVA) | payer MEDICARE, SELFPAY | PROVIDERS: PCP Nurse Practitioner; Referring Provider Nurse Practitioner; Visit Provider Surgery | DX: D64.9 Anemia, unspecified (principal) | CPT/HCPCS: 99202; 99213 ==

== ENCOUNTER 2021-11-21 04:27 | Outpatient (CLI) | payer MEDICARE, SELFPAY ==
[2021-11-21 10:32] LABS: HCT 36.3 % (36.0-46.0); HGB 10.8 g/dL (11.2-15.7); MCH 26.3 pg (27.0-33.0); MCHC 29.8 % (32.0-36.0); MCV 88.3 fL (80-95); MPV 11.8 fL (8.0-11.0); Platelet Count 187 10^3/uL (130-400); RBC 4.11 10^6/uL (3.93-5.22); RDW 19.1 % (11.7-14.6); RDW-SD 62.5 fL
== END 2021-11-21 04:28 | disposition home or self-care (01) ==
LOC: LBO 04:28
PROVIDERS: PCP Nurse Practitioner; Visit Provider Nurse Practitioner
DX: D64.9 Anemia, unspecified (principal); K92.2 Gastrointestinal hemorrhage, unspecified
CPT/HCPCS: 36415; 85027

== ENCOUNTER 2021-11-27 02:14 | Outpatient (CLI) | payer MEDICARE, SELFPAY ==
[2021-11-27 09:39] LABS: Source Nasal/Nares
[2021-11-27 12:08] LABS: COVID-19 PCR Negative (Negative)
== END 2021-11-27 02:15 | disposition home or self-care (01) ==
LOC: LBO 02:15
PROVIDERS: PCP Nurse Practitioner; Visit Provider Surgery
DX: Z20.822 Contact with and (suspected) exposure to COVID-19 (principal); Z01.818 Encounter for other preprocedural examination
CPT/HCPCS: 87635; U0005

== ENCOUNTER 2021-11-29 06:57 | Day surgery (SDC) | payer MEDICARE, SELFPAY ==
--- NOTE | 2021-11-29 06:31 | ENDO_ITS ---
Date of service: 11/29/21 Time of Service: 08:45 Endoscopy Report DATE OF PROCEDURE: 11/29/21 PRE-OP DIAGNOSIS: Anemia POST-OP DIAGNOSIS: same (and colorectal polyps) PROCEDURE: 1. EGD with biopsies 2. Colonoscopy with polypectomy SURGEON: Dary Grant ANESTHESIA TYPE: General:No Airway ESTIMATED BLOOD LOSS: 2 PATHOLOGY: other (gastric bx, GE junction bx, ascending polyp and transverse polyp x3) COMPLICATIONS: None DISPOSITION: same day INDICATIONS: Jessica is an 71-year-old female who was admitted to the hospital with shortness of breath.? She was found to be anemic with a hemoglobin of 6.2.? She was given 2 units of blood and her hemoglobin came up to 7.8.? Her last hemoglobin done on was 7.2.? Jessica continues to feel short of breath with activity.? Her sats were good today when she was sitting and talking.? Her echo was pretty unremarkable.? Chest x-ray at the time of admission was unremarkable.? She was Covid positive on 10/05 but it was felt that she was asymptomatic and that her shortness of breath was due to her anemia.? I have recommended that we do an upper and lower endoscopy.? I have explained the procedure in layman's terms as well as the risks and complications.? Jessica wishes to proceed. Risks, benefits and complications have been reviewed. Complications include but are not limited to bleeding, pain, perforation, missed small lesion/polyp, sore throat, aspiration and adverse reaction to the medications. Questions were entertained and answered to their satisfaction and they wished to proceed. No guarantees were given or implied. Proceed with colonoscopy and upper endoscopy under sedation PREP: Miralax/Dulcolax PROCEDURE START TIME: 08:45 PROCEDURE END TIME: 09:26 COLONOSCOPY RETRACTION TIME: 19 minutes FINDINGS: Upper- small red lesion in the body of the stomach which was biopsied lower- multiple polyps No signs of bleeding PROCEDURE DESCRIPTION: After informed consent was obtained the patient was take to the procedure room and placed in a supine position. Monitors were applied and a time out was done. The patients name, date of , procedure type, allergies to medications and metal in their body was reviewed. A bite block was placed and the patient was sedated. Once sedated and comfortable the gastroscope was advanced through the oropharynx which was grossly normal into the esophagus. The proximal and mid- esophagus were normal. In the distal esophagus there was no inflammation noted. The scope was advanced into the stomach and through the pylorus into the 3rd portion of the duodenum. The duodenum was noted to be normal. The scope was retracted back into the stomach. There was no inflammation noted. there was a red lesion in the body and this was Biopsied. There were no ulcers. The scope was retro-flexed. The cardia and fundus were noted to be normal. There was no hiatal hernia noted. The scope was retracted back into the esophagus and biopsies were done of the GE junction to rule out Stratton's. The Z line was regular. The GE junction was at 40 cm. While the patient was still sedated they were placed in a left decubitous position. A rectal exam was done. External exam was normal. Internal exam revealed a normal sphincter tone and no palpable masses. The scope was then introduced and retro-flexed. No internal hemorrhoids, masses or polyps were identified on retroflexion. The scope was then advanced to the cecum without difficulty. The ileocecal valve and appendiceal orifice were identified. The prep was adequate. The scope was then slowly retracted over 19 minutes back into the rectum. Polyps were removed with hot snare in the ascending colon and with cold forceps in the Transverse colon x3. There was no diverticulosis noted. The scope was removed and the patient was woken up and taken back to Same day surgery in stable condition. The patient tolerated the procedure well and there were no immediate complications. Follow up: 3-5 years for next colonoscopy. Recommend referal to [facility] [place] for capsule endoscopy if patient continuous to be anemic
--- NOTE | 2021-11-29 06:32 | W.PM.DSUDISC ---
Discharge Plan Disposition Patient Disposition: HOME Condition: Good Discharge Details Reason For Visit: Anemia Attending Provider: Dary Grant Primary Care Provider: Ronel Oliver Home Meds and New Rx's Prescriptions: Continued (DME) incontinence pad, liner, disp Pad See Rx Instructions .ROUTE .MEDSUPPLY Qty: 48 3RF Rx Instructions: As directed cyanocobalamin (vitamin B-12) [Vitamin B-12] 500 mcg tablet 1,000 mcg PO DAILY Qty: 60 11RF glucosamine sulfate 2KCl [Glucosamine Relief] 1,000 mg tablet 2,000 mg PO BID 0RF Rx Instructions: administer with meals Breo Ellipta 100-25 mcg/dose blister with device 1 inh inhalation DAILY Qty: 60 11RF ipratropium-albuterol 0.5 mg-3 mg(2.5 mg base)/3 mL solution for nebulization 3 ml IH Q6H PRN (Reason: copd) Qty: 180 3RF lisinopril 20 mg tablet 20 mg PO DAILY Qty: 90 4RF polyethylene glycol 3350 [Miralax] 17 gram/dose powder 17 g PO DAILY PRN (Reason: constipation) Qty: 510 0RF Hold Instructions: Home Medication placed on hold at Doctor's office ferrous sulfate 325 mg (65 mg iron) tablet 325 mg PO BID 0RF docusate sodium [Colace] 100 mg capsule 100 mg PO BID Qty: 60 4RF spacer 1 Q6H PRN Qty: 1 0RF Rx Instructions: Spacer to go with albuterol inhaler alendronate [Fosamax] 70 mg tablet 70 mg PO QWEEK Qty: 13 4RF albuterol sulfate [ProAir HFA] 90 mcg/actuation HFA aerosol inhaler 2 puff IH Q6H PRN (Reason: shortness of breath or wheezing) Qty: 18 4RF gabapentin 300 mg capsule 300 mg PO TID Qty: 270 4RF simvastatin [Zocor] 20 mg tablet 20 mg PO HS Qty: 90 4RF metoprolol tartrate 50 mg tablet 50 mg PO BID Qty: 180 4RF omeprazole 40 mg capsule,delayed release(DR/EC) 40 mg PO BID Qty: 60 4RF acetaminophen 500 mg tablet 500 mg PO Q6H PRN PRN (Reason: pain) Qty: 40 3RF Discontinued sucralfate [Carafate] 1 gram tablet 1 g PO QACHS Qty: 120 0RF Discharge Instructions Instructions: Colorectal Polyps (DC) Additional Instructions: Findings: no bleeding noted 4 polyps in the large intestine Follow up: 3-5 years Please call if you develop: fevers >101.5 Nausea or Vomiting Abdominal pain that is not transient Rectal bleeding that is more then a tbsp A hard abdomen and inability to pass gas DAY [facility] UN[facility] POST ENDOSCOPY INSTRUCTIONS Instructions for everyone who is given Anesthesia: For your safety, please do the following for the next 24 Hours: a. Do not drive or operate dangerous equipment b. Do not drink alcohol beverages or use any recreational drugs for the first 24 hours or while taking pain medications. The medications in your body may have a reaction that can be dangerous. c. Do not make any important decisions or sign any important papers 1. Generally there are no restrictions on your activity after a day or so has gone by, but you may feel a bit fatigued for a few days. 2. After you arrive home you may have a light meal and return to a normal diet as you can tolerate it without feeling sick to your stomach. 3. After surgery, you may feel pain or discomfort. This should be only transient, but if it persists please contact your doctor. 4. If there are any questions regarding the findings of your procedure, please feel free to contact your doctor. 6. If you are unable to contact your doctor with a problem, contact the hospital at [phone]. 7. Continue all your regular medications unless directed otherwise. I understand the above instructions and have no questions. Signature of Patient or Responsible Adult Escort Date/Time Name of Responsible Adult Escort Signature of Nurse Date/Time Activity:: Activity as Tolerated Diet:: As Tolerated Discharge Orders Discharge Orders: Discharge Order (Routine); Ordered 11/29/21 Ordered By: Dary Grant
[2021-11-29 07:19] VITALS: BP 148/73; PULSE 57; RESP 16; TEMP 36.6; O2SAT 97
[2021-11-29] MEDS: Lactated Ringers 1,000 ML 80 ML IV (07:40)
--- NOTE | 2021-11-29 07:52 | ANES.PREOP_ITS ---
General Info Date of Service Date Performed: 11/29/21 Height: 5 ft 4 in Weight: 98.628 kg Body Mass Index (BMI): 37.3 Surgical Procedure: Operation Date: 11/29/21 09:20 Proposed Procedure Side Surgeon p Colonoscopy/Gastroscopy Dary Grant MD Meds Allergies and Home Medications Allergies Allergy/AdvReac Type Severity Reaction Status Date / Time hydrocodone [Hydrocodone] AdvReac Intermediate NAUSEA Verified 11/29/21 07:19 Home Medication Medication Instructions Recorded acetaminophen 500 mg tablet 500 mg PO Q6H PRN PRN #40 tab 11/01/20 incontinence pad, liner, disp #48 ea 11/18/20 cyanocobalamin (vitamin B-12) 500 1,000 mcg PO DAILY #60 tab 01/03/21 mcg tablet (Vitamin B-12) fluticasone furoate 100 1 inh INHALATION DAILY #60 ea 03/07/21 mcg-vilanterol 25 mcg/dose inhalation powder (Breo Ellipta) glucosamine sulfate 2KCl 1,000 mg 2,000 mg PO BID tab 03/07/21 tablet (Glucosamine Relief) ipratropium 0.5 mg-albuterol 3 mg 3 ml IH Q6H PRN #180 ml 03/07/21 (2.5 mg base)/3 mL nebulization soln lisinopril 20 mg tablet 20 mg PO DAILY #90 tab 03/07/21 alendronate 70 mg tablet (Fosamax) 70 mg PO QWEEK #13 tab 05/22/21 albuterol sulfate 90 mcg/actuation 2 puff IH Q6H PRN #18 gm 09/19/21 aerosol inhaler (ProAir HFA) gabapentin 300 mg capsule 300 mg PO TID #270 tab-cap 09/19/21 simvastatin 20 mg tablet (Zocor) 20 mg PO HS #90 tab 09/19/21 omeprazole 40 mg capsule,delayed 40 mg PO BID #60 tab-cap 10/06/21 release metoprolol tartrate 50 mg tablet 50 mg PO BID #180 tab-cap 10/09/21 docusate sodium 100 mg capsule 100 mg PO BID #60 cap 11/07/21 (Colace) ferrous sulfate 325 mg (65 mg 325 mg PO BID tab 11/07/21 iron) tablet polyethylene glycol 3350 17 17 g PO DAILY PRN #510 g 11/07/21 gram/dose oral powder (Miralax) sucralfate 1 gram tablet (Carafate) 1 g PO QACHS #120 tab 11/07/21 Current Visit Medications: Current Medications Generic Name Dose Route Start Last Admin Trade Name Isaiasq PRN Reason Stop Dose Admin Hyoscyamine Sulfate 0.125 mg 11/29/21 06:33 Hyoscyamine 0.125 Mg Sl/Oral/Chew SL DIRECTED PRN Ringer's Solution 1,000 mls @ 80 mls/hr 11/29/21 06:00 11/29/21 07:40 IV 12/16/21 23:59 80 mls/hr INFUSION CRYSTAL Administration IV Miscellaneous Supplies 1 each 11/29/21 06:00 Iv Access IV 12/16/21 23:59 DIRECTED CRYSTAL Ondansetron HCl 4 mg 11/29/21 06:33 Ondansetron 4 Mg/2 Ml Vial IVP Q4H PRN PRN Nausea / Vomiting Sodium Chloride 0 ml 11/29/21 06:00 Normal Saline Flush 10 Ml Syr IV 12/16/21 23:59 PRN PRN Sodium Chloride 0 ml 11/29/21 06:00 Normal Saline 10 Ml Vial IJ 12/16/21 23:59 DIRECTED PRN Sterile Water 0 ml 11/29/21 06:00 Water,Injection,Sterile 10 Ml Vial IJ 12/16/21 23:59 DIRECTED PRN PFSH Active Problems Active Problems: Problem Status Onset Code Morbid obesity 12/19/14 E66.01 Illiterate Z55.0 Dyspnea on exertion R06.09 GI bleed K92.2 Symptomatic anemia D64.9 Ascending aortic aneurysm I71.2 Medical History Medical History Acute carpal tunnel syndrome of right wrist Anemia Anxiety Chronic obstructive lung disease COPD exacerbation COVID-19 09/2021, immunized Depressive disorder Essential hypertension Gastroesophageal reflux disease History of tobacco use 10-15 year hx 1/2- 1 PPD HTN (hypertension) Hypercalcemia (09/23/15) Hyperlipidemia Insomnia Iron deficiency anemia due to chronic blood loss (01/11/15) GHISLAINE (obstructive sleep apnea) (12/19/14) Osteoarthritis knees, hands Osteoporosis Post-nasal drainage Right knee sprain Severe anemia (12/19/14) Total urinary incontinence Surgical History Surgical History Cholecystectomy (05/28/73) Hx of colonoscopy Hx of esophagogastroduodenoscopy Status post cholecystectomy Tobacco Smoking/Tobacco Use Status: Former Tobacco Use Passive smoking exposure: Yes Alcohol Alcohol Intake: never Substance Use Substance use: Never Substance use type: does not use Vital Signs and Lab Results Vital Signs Most Recent Vital Signs in EMR: Most Recent Vital Signs Temp Pulse Resp BP Pulse Ox 36.6 C 57 L 16 148/73 H 97 11/29/21 07:19 11/29/21 07:19 11/29/21 07:19 11/29/21 07:19 11/29/21 07:19 Lab Results Blood Type / Crossmatch: No Data to Display Complete Blood Count: White Blood Count 7.90 10^3/uL (4.4-10.8) 11/21/21 10:17 11/21/21 Red Blood Count 4.11 10^6/uL (3.93-5.22) 11/21/21 10:17 11/21/21 Hemoglobin 10.8 g/dL (11.2-15.7) L 11/21/21 10:17 11/21/21 Hematocrit 36.3 % (36.0-46.0) 11/21/21 10:17 11/21/21 Platelet Count 187 10^3/uL (130-400) 11/21/21 10:17 11/21/21 Complete Metabolic Panel: No Data to Display Liver Function Panel: No Data to Display Coagulation Panel: No Data to Display Cardiac Panel: No Data to Display Arterial Blood Gas: No Data to Display Venous Blood Gas: No Data to Display Pancreas Panel: No Data to Display Thyroid Panel: No Data to Display Infectious Disease: Coronavirus (COVID-19)(PCR) Negative (Negative) 11/27/21 09:11 11/27/21 Coronavirus 2019 Source Nasal/Nares 11/27/21 09:11 11/27/21 Blood Cultures: No Data to Display Toxicology Panel: No Data to Display Imaging and Studies Imaging and Studies Study information below may be from another EMR and interpreted by another provider. Please see original notes in EMR for more complete details. EKG Summary: Conclusion Sinus rhythm...normal P axis, V-rate 60- 99 Repol abnrm suggests ischemia, diffuse leads...ST-T neg, ant/lat/inf 10/06/21 Stress Test Summary: CONCLUSION: A moderate-sized intense partially reversible anterior wall defect is present. I suspect this is likely to represent a breast attenuation artifact, with anterior wall ischemia a lesser possibility. 04/28/13 Echocardiogram Summary: Conclusion Normal left ventricular wall thickness and chamber size. Estimated ejection fra ction is 60%. Wall motion is normal Normal right ventricular size and systolic function The left atrium is mildly to moderately dilated. The right atrium is normal in size Mildly sclerotic trileaflet aortic valve without stenosis or regurgitation Moderately thickened mitral leaflets. Mitral annular calcification. Moderate to severe mitral regurgitation Normal tricuspid valve with mild regurgitation. Estimated right ventricular systolic pressure is 41 mmHg Borderline dilated ascending aorta measuring 3.45 cm 11/06/21 Anesthesia Assessment and Plan Anesthesia History Personal History: No History of Anesthesia Complications Family History: No Family History of Anesthesia Complications Exercise Tolerance Exercise Tolerance: Metabolic Equivalents<4 Pertinent Negatives Pertinent Negatives: No Symptoms of GERD (Controlled with meds) and No Major Cardiovascular Symptoms or Complaints Cardiac & Pulmonary Exam Cardiac Exam: Normal S1/S2 Heart Sounds Pulmonary Exam: Clear Bilateral Breath Sounds Implantable Cardiac Device Does patient have a Pacemaker or an ICD?: No Airway Exam Known Difficult Airway: No Mallampati Class: 3 Mouth Opening: Normal (> 3cm) Thyromental Distance: Greater than 3 cm Neck Range of Motion: Full ROM Neck Circumference: Normal Teeth Condition: Removable Dentures/Plates Upper, Removable Dentures/Plates Lower and Edentulous ASA Classification ASA Score: ASA 3 Emergency Case?: No NPO Status NPO Status: NPO Clears >2 hours, Solids >8 hours Anesthesia Plan Resuscitation Status: Full Code Anesthesia Technique: General Anesthesia Airway Planned: Natural Airway Monitors Used: Standard Monitors Preoperative Comments:: Patient states that she easily gets SOB, especially lying flat. Will keep HOB slightly elevated and O2 via mask.
[2021-11-29 07:57] VITALS: BMI 37.3
--- NOTE | 2021-11-29 08:47 | STOM_PTH ---
PATIENT: Jessica Gordon LOC: [facility] U#:[id number] AGE/SX: 71/F ROOM: RE11/29/[address]: Dary Grant MD : [id number] BED: DIS: 11/29/2021 SPEC #: [id number] RECD: 11/29/21 11:27 STATUS: FACUNDO REQ #: [id number] CORINA: 11/29/21 08:[address]: Dary Grant DEPT: Surgical Specimen RECD BY: Randi Alcocer ENTERED: 11/29/21 11:29 SP TYPE: STOMACH OTHR DR: Ronel Oliver, PhD ADDRESSER Tissues: 1 - STOMACH BIOPSY 2 - ESOPHAGUS BIOPSY 3 - BIOPSY BOWEL 4 - BIOPSY BOWEL Procedures: GROSS AND MICRO LEVEL 4 Comments: [id number]
[2021-11-29 09:37] VITALS: BP 74/48; PULSE 47; RESP 24; TEMP 36.3; O2SAT 98
[2021-11-29 09:54] VITALS: BP 105/43; PULSE 55; RESP 24; O2SAT 98
[2021-11-29 10:05] VITALS: BP 85/46; PULSE 51; RESP 20; TEMP 36.6; O2SAT 94
[2021-11-29 10:18] VITALS: BP 105/39; PULSE 56; RESP 16; TEMP 36.4; O2SAT 96
--- NOTE | 2021-11-29 10:25 | W.ANESPOSTOP ---
Postoperative Evaluation Date, Time and Location Date Performed: 11/29/21 Time Performed: 10:01 Patient Location: Day Surgery Unit Vital Signs Most Recent Imported Vital Signs: Most Recent Vital Signs Temp Pulse Resp BP Pulse Ox 36.4 C L 56 L 16 105/39 L 96 11/29/21 10:18 11/29/21 10:18 11/29/21 10:18 11/29/21 10:18 11/29/21 10:18 Pain Score Most Recent Pain Score: Most Recent Pain Score Pain Level 0 11/29/21 10:18 Assessment Mental Status: Awake (Alert & Oriented to Patient Baseline) Airway and Respiratory Function: Patent airway with normal (patient baseline) respiratory exam Cardiovascular Function: Hemodynamically Stable Hydration Status: Adequately Hydrated Nausea & Vomiting: No Nausea or Vomiting Pain: Pt. Denies Any Pain Peripheral Nerve Block: Patient did not receive a nerve block
[2021-11-29 10:27] VITALS: BP 124/58
--- NOTE | 2021-11-29 10:28 | W.ANESPOSTOP ---
Postoperative Evaluation Date, Time and Location Date Performed: 11/29/21 Time Performed: 10:28 Patient Location: Day Surgery Unit Vital Signs Most Recent Imported Vital Signs: Most Recent Vital Signs Temp Pulse Resp BP Pulse Ox 36.4 C L 56 L 16 124/58 L 96 11/29/21 10:18 11/29/21 10:18 11/29/21 10:18 11/29/21 10:27 11/29/21 10:18 Most Recent Vital Signs Temp Pulse Resp BP Pulse Ox 36.4 C L 56 L 16 105/39 L 96 11/29/21 10:18 11/29/21 10:18 11/29/21 10:18 11/29/21 10:18 11/29/21 10:18 Pain Score Most Recent Pain Score: Most Recent Pain Score Pain Level 0 11/29/21 10:18 Assessment Mental Status: Awake (Alert & Oriented to Patient Baseline) Airway and Respiratory Function: Patent airway with normal (patient baseline) respiratory exam Cardiovascular Function: Hemodynamically Stable Hydration Status: Adequately Hydrated Nausea & Vomiting: No Nausea or Vomiting Pain: Pt. Denies Any Pain Peripheral Nerve Block: Patient did not receive a nerve block Postoperative Comments:: concern related to low BP per DSU RN. Checked BP personally. 124/58. patient feeling fine cleared to go home.
== END 2021-11-29 10:40 | disposition home or self-care (01) ==
LOC: SUR 06:58
PROVIDERS: PCP Nurse Practitioner; Visit Provider Surgery
PROC: (CPT 43239; principal; 2021-11-29 09:15)
DX: D64.9 Anemia, unspecified (principal); I10 Essential (primary) hypertension; K21.9 Gastro-esophageal reflux disease without esophagitis; J44.9 Chronic obstructive pulmonary disease, unspecified; G47.33 Obstructive sleep apnea (adult) (pediatric); K63.5 Polyp of colon; K22.89 Other specified disease of esophagus; K31.89 Other diseases of stomach and duodenum
CPT/HCPCS: 43239; 45380; 45385; 88305; J2001; J2405

== ENCOUNTER 2022-05-17 04:09 | Outpatient (CLI) | payer MEDICARE, SELFPAY ==
[2022-05-17 12:45] LABS: Abs Immature Grans 0.03 10^3/uL (0.0-0.06); Absolute Basophil Count 0.08 10^3/uL (0.0-0.2); Absolute Lymphocyte Count 1.98 10^3/uL (1.2-3.4); Absolute Monocyte Count 0.85 10^3/uL (0.1-0.8); Absolute Neutrophil Count 4.82 10^3/uL (1.2-6.7); Eosinophils % 6.1; HCT 39.7 % (36.0-46.0); HGB 13.4 g/dL (11.2-15.7); Immature Grans % 0.4; MCH 31.1 pg (27.0-33.0); MCHC 33.8 % (32.0-36.0); MCV 92 fL (80-95); MPV 12.1 fL (8.0-11.0); Monocytes % 10.3; Neutrophils % 58.2; Platelet Count 223 10^3/uL (130-400); RBC 4.31 10^6/uL (3.93-5.22); RDW 13.7 % (11.7-14.6); RDW-SD 46.2 fL; WBC 8.26 10^3/uL (4.4-10.8)
[2022-05-17 16:09] LABS: Iron 92 ug/dL (50-170); Total Iron Binding Capacity 362 ug/dL (250-450); Transferrin Sat 25 % (15-50)
== END 2022-05-17 04:10 | disposition home or self-care (01) ==
LOC: LOS 04:09
PROVIDERS: PCP Nurse Practitioner; Visit Provider Emergency Medicine
DX: D64.9 Anemia, unspecified (principal)
CPT/HCPCS: 36415; 83540; 83550; 85025

== ENCOUNTER 2022-11-30 09:15 | Outpatient (CLI) | payer MEDICARE, SELFPAY ==
[2022-11-30 12:46] LABS: ALT 28 U/L (14-59); AST 23 U/L (15-37); Alkaline Phosphatase 100 U/L (46-116); Anion Gap 7.8 mmol/L (3-11); BUN 23 mg/dL (7-18); Bilirubin, Total 0.7 mg/dL (0.2-1.0); CO2 26.2 mmol/L (21.0-32.0); CREATININE 1.4 mg/dL (0.55-1.02); Calcium 10.8 mg/dL (8.5-10.1); Chloride 103 mmol/L (98-107); Estimated GFR 39.73 (mL/min/1.73m2); Glucose 119 mg/dL (74-106); Potassium 4.5 mmol/L (3.5-5.1); Sodium 137 mmol/L (136-145); Total Protein 7.6 g/dL (6.4-8.2)
== END 2022-11-30 09:16 | disposition home or self-care (01) ==
LOC: LOS 09:15
PROVIDERS: PCP Family Medicine; Referring Provider Family Medicine; Visit Provider Family Medicine
DX: R73.01 Impaired fasting glucose (principal); I10 Essential (primary) hypertension
CPT/HCPCS: 36415; 80053; 83036

== ENCOUNTER 2023-04-23 10:44 | Outpatient (CLI) | payer MEDICARE, SELFPAY ==
--- NOTE | 2023-04-23 10:30 | RT.EKG_ITS ---
APPROVED REPORT Exam: Resting ECG Reason for Exam: Hypertension. Patient Location: O HR:51 bpm ECG Measurements Heart Rate 51 AXIS CA 180 P 76 QRSd 94 QRS 45 QT 435 T 59 QTc 401 Conclusion Sinus rhythm...normal P axis, V-rate 50- 99 Normal Electrocardiogram
== END 2023-04-23 10:45 | disposition home or self-care (01) ==
LOC: DI.CM 10:45
PROVIDERS: PCP Family Medicine; Visit Provider Family Medicine
DX: I10 Essential (primary) hypertension
CPT/HCPCS: 93010

== ENCOUNTER 2023-04-30 01:11 | Outpatient (CLI) | payer MEDICARE, SELFPAY ==
--- NOTE | 2023-04-30 08:00 | DI.RAD_ITS ---
Exam(s) XR CHEST 2V PA LATERAL EXAM: XR CHEST 2V PA LATERAL CLINICAL HISTORY: COPD, dyspnea,j44.9 TECHNIQUE: 2D digital imaging was performed. COMPARISON: CR XR PORTABLE CHEST AP from 10/05/2021 FINDINGS: HEART: Normal size. Aorta: Not dilated. PULMONARY VASCULATURE: Normal. LUNGS: Clear. PLEURAL SPACE: No pleural effusion or pneumothorax. BONE:Unremarkable for age. IMPRESSION: No acute abnormality. DATA REPOSITORY: RADIATION DOSE DELIVERED:
[2023-04-30] MEDS: Albuterol HFA 18 GM 200 PUFF INH IH (11:03)
[2023-04-30] MEDS: Inhaler, Assist Device 1 EACH MC (11:04)
--- NOTE | 2023-05-07 09:03 | W.PFT ---
Date of service: 04/30/23 Time of Service: 10:03 Pulmonary Function Test Result Indications: COPD Interpretation Spirometry: There is no airflow limitation. There is no bronchodilator response. There is inspiratory loop blunting. Lung Volumes: There is air trapping Diffusion Capacity: Unable to perform Airway Pressure: Increased airway resistance Impression Air trapping and airways resistance, which can be seen in asthma. Inspiratory loop blunting may indicate vocal cord dysfucntion. Clinical Correlation therefore is recommended.
== END 2023-04-30 01:12 | disposition home or self-care (01) ==
PROVIDERS: PCP Family Medicine; Visit Provider Family Medicine
DX: J44.9 Chronic obstructive pulmonary disease, unspecified (principal)
CPT/HCPCS: 94060; 94726; 71046

== ENCOUNTER 2023-04-30 13:51 | Outpatient (CLI) | payer MEDICARE, SELFPAY ==
[2023-04-30 11:42] LABS: Abs Immature Grans 0.02 10^3/uL (0.0-0.06); Absolute Basophil Count 0.06 10^3/uL (0.0-0.2); Absolute Eosinophil Count 0.46 10^3/uL (0.0-0.7); Absolute Lymphocyte Count 1.68 10^3/uL (1.2-3.4); Absolute Neutrophil Count 3.87 10^3/uL (1.2-6.7); Basophils % 0.9; Eosinophils % 6.8; HGB 11.9 g/dL (11.2-15.7); Immature Grans % 0.3; Lymphocytes % 24.7; MCH 30.2 pg (27.0-33.0); MCV 89 fL (80-95); MPV 10.9 fL (8.0-11.0); Monocytes % 10.3; Platelet Count 158 10^3/uL (130-400); RBC 3.94 10^6/uL (3.93-5.22); RDW 14.4 % (11.7-14.6); RDW-SD 46.2 fL; WBC 6.79 10^3/uL (4.4-10.8)
[2023-04-30 12:08] LABS: ALT 24 U/L (14-59); AST 21 U/L (15-37); Albumin 4.1 g/dL (3.4-5.0); Alkaline Phosphatase 93 U/L (46-116); Anion Gap 8.8 mmol/L (3-11); BUN 23 mg/dL (7-18); Bilirubin, Total 0.5 mg/dL (0.2-1.0); CO2 24.2 mmol/L (21.0-32.0); CREATININE 1.1 mg/dL (0.55-1.02); Calcium 10.7 mg/dL (8.5-10.1); Chloride 105 mmol/L (98-107); Estimated GFR 53.06 (mL/min/1.73m2); Glucose 119 mg/dL (74-106); Potassium 4.5 mmol/L (3.5-5.1); Sodium 138 mmol/L (136-145); Total Protein 7.5 g/dL (6.4-8.2)
[2023-04-30 12:27] LABS: Vitamin D 25 Total 14.1 ng/mL (30-100)
== END 2023-04-30 13:52 | disposition home or self-care (01) ==
LOC: LBO 13:51
PROVIDERS: PCP Family Medicine; Visit Provider Family Medicine
DX: N18.30 Chronic kidney disease, stage 3 unspecified (principal); E83.52 Hypercalcemia
CPT/HCPCS: 36415; 80053; 82306; 85025

== ENCOUNTER → 2023-07-05 00:29 | Outpatient (CLI) | payer MEDICARE, SELFPAY ==
--- NOTE | 2023-07-05 07:45 | DI.US_ITS ---
APPROVED REPORT EXAM: Comprehensive 2D, Doppler, and color-flow Echocardiogram Patient Location: Out-Patient Production Support Analyst: Dominic Lambert RDCS (AE) Indications: follow up mitral regurg, dyspnea, heart murmur Other Information Study Quality: Adequate. Technically limited study due to body habitus. Conclusion Borderline concentric left ventricular hypertrophy. Normal left ventricular chamber size. Ejection fraction biplane is 58%, visually appears 60 to 65%. There is stage I diastolic dysfunction which is normal for patient age Normal right ventricular size and systolic function Left atrium is moderately dilated. Right atrial size is normal Aortic valve is trileaflet without stenosis or regurgitation Mildly thickened mitral leaflets with moderate regurgitation Normal tricuspid valve with mild regurgitation. Estimated right ventricular systolic pressure is 31 mmHg Wall motion Left Ventricle The left ventricle is normal size. The left ventricular systolic function is normal. The left ventric ular ejection fraction is within the normal range. Borderline concentric left ventricular hypertrophy . There is normal LV segmental wall motion. There is no ventricular septal defect visualized. LVEF is 58%. Right Ventricle The right ventricle is normal size. The right ventricular systolic function is normal. The RVSP is 30 .7 mmHg. Atria Left atrium is moderately dilated. The right atrium size is normal. The interatrial septum is intact with no evidence for an atrial septal defect. Aortic Valve The aortic valve is normal in structure. Aortic valve is trileaflet. There is no aortic valvular sten osis. No aortic regurgitation is present. Mitral Valve The mitral valve is mildly thickened. No evidence of mitral valve stenosis. Moderate mitral regurgita tion. Tricuspid Valve The tricuspid valve is normal in structure. There is no tricuspid valve stenosis. Mild tricuspid regu rgitation. Pulmonic Valve The pulmonary valve is normal in structure. There is no pulmonic valvular stenosis. There is no pulmo marvel valvular regurgitation. Great Vessels The aortic root is normal in size. The ascending aorta is normal Aortic arch is normal in caliber. IV C is normal in size and collapses >50% with inspiration. Pericardium There is no pericardial effusion. 2D Dimensions IVSD d PLAX 1.03 cm F: 0.6-1.0 Ao Root d 2.70 cm F: 2.7 - 3.3 LVPW d PLAX 1.05 cm F: 0.6 - 1.0 Ao Asc Diam d 3.29 cm F: 2.3 - 3.1 LVID d PLAX 5.07 cm F: 3.8 - 5.2 LVDs 3.58 cm F: 2.2 - 3.5 LV EF Teichholz 56.0 % FS 29.36 % LV EDV (Teich) 122.0 mL LV ESV (Teich) 53.7 mL Stroke Vol Index (Teich) 34.68 M-Mode TAPSE 2.58 cm (M/F) >1.7 Auto EF LV EDV A4C 130.5 mL LV EDV A2C 112.1 mL LV EDV BP 121.5 mL LV ESV A4C 56.9 mL LV ESV A2C 50.1 mL LV ESV BP 53.5 mL LVEF(%) A4C 56.4 % LVEF(%) A2C 55.3 % LVEF(%) BP 56.0 % LV SV A4C 73.6 ml LV SV A2C 62.0 ml LV SV BP 68.0 ml LV CO A4C 4.4 L/min LV CO A2C 3.6 L/min LV CO BP 4.0 L/min HR A4C 60.10 BPM HR A2C 57.79 BPM LV EDV Index (BP) LA Volume LA Length A4C 5.8 cm LA Length A2C LA Area A4C s 19.16 cm2 LA Area A2C s LA Vol A4C A-L 53.72 mL LA Vol A2C A-L LA Vol Biplane A-L LA Vol A4C MOD 51.4 mL LA Vol A2C MOD LA Vol BP MOD RA Volume RA Area A4C 13.1 cm2 RA ESV A4C (A-L) 25.7mL RA Vol/BSA A4C A-L RA Length A4C 5.6 cm RA ESV A4C (MOD) 25.8mL LV Diastology MV E' medial 0.064 (>0.07 m/s) MV E Vmax 1.18 (0.4-1.3 m/s) MV E/E' MED 18.44 (<14) MV A Vmax 1.30 (0.4-1.3 m/s) MV E' lateral 0.079 (>0.1 m/s) E/A Ratio 0.9 MV E/E' LAT 15.01 (<14) MV E' Average 0.072 m/s MV E/E'(average) 16.55 Aortic Valve AoV Vmax 1.84 m/s LVOT Vmax 1.70 m/s AoV Peak Grad 13.5 mmHg LVOT Peak Grad 11.5 mmHg AoV Area (Vmax) 2.11 cm2 LVOT VTI 0.367 m AoV VTI 0.471 m LVOT Mean Grad 7.3 mmHg AoV Mean [place]. 1.31 m/s LVOT SV 83.83 mL AoV Mean Grad 7.8 mmHg LVOT Diam s 1.70 cm AoV Area (VTI) 1.78 cm2 Velocity Ratio 0.92 Mitral Valve MV DT 258 (160-240 msec) MR PISA Radius 0.69 cm MR Aliasing Velocity 0.36 m/s Pulmonary Valve PV Vmax 1.45 (0.5-1.5 m/s) RVOT Vmax 1.08 m/s PV Peak Grad 8.4 mmHg RVOT Peak Gr. 4.7 mmHg PV Mean [place] 1.03 m/s RVOT VTI 0.240 m PV Mean Grad 4.9 mmHg RVOT Mean Gr. 2.6 mmHg Tricuspid Valve RA Pressure 3.00 mmHg TR Vmax 2.63 m/s TR Peak Grad 27.6 mmHg RVSP (TR) 30.7 mmHg
== END ==
PROVIDERS: PCP Family Medicine; Visit Provider Family Medicine
DX: I34.0 Nonrheumatic mitral (valve) insufficiency (principal); R01.1 Cardiac murmur, unspecified
CPT/HCPCS: 93306

== ENCOUNTER → 2023-07-05 01:10 | Outpatient (CLI) | payer MEDICARE, SELFPAY ==
--- NOTE | 2023-07-05 12:10 | DI.CT_ITS ---
Exam(s) CT CHEST WO EXAM: CT CHEST WO CLINICAL HISTORY: abnormal CXR,CHRONIC OBSTRUCTIVE LUNG DISEASE,R93.89,J44.9. TECHNIQUE: Multi planar reconstructions were performed. CONTRAST MATERIAL: None COMPARISON: CR XR PORTABLE CHEST AP from 10/05/2021 CR XR CHEST 2V PA LATERAL from 04/30/2023 FINDINGS: CHEST: LUNGS: There subpleural mild increased markings in the lateral right lung at the junction of the righ t upper and right middle lobes, presently benign-appearing. No adjacent rib destruction. No pleural effusion. Also mild benign-appearing increased markings noted in the medial basal segment of the ri ght lower lobe. No ominous right lung nodules nor pleural effusion. In the opposite-left lung there are mild increased markings adjacent to these major fissure in the meier perior segment of the left lower lobe, benign-appearing. There is a 3 millimeter nodular infiltrate pleural based in the posterior basal segment of the left lower lobe. No pleural effusions on either side. MEDIASTINUM: There is a nodule posterior to the left thyroid lobe measuring 1.1 x 0.9 cm. This eithe r represents a thyroid nodule or possible parathyroid gland enlargement. CARDIAC: Heart size is normal. There is no pericardial effusion.Caliber of the thoracic aorta is wit hin normal limits. VISUALIZED UPPER ABDOMEN:There is a nodule in the right adrenal gland which measures 2.7 x 2.2 cm. A ppears hypodense. Left adrenal gland unremarkable. OSSEOUS: No significant osseous lesions.No fractures.. IMPRESSION: 1. Bilateral benign-appearing pulmonary findings as described individually above. No pleural effusio ns. No intrathoracic adenopathy. 2. Incidentally noted is an 11 x 9 mm nodule intimately associated with the posterior aspect of the l eft thyroid lobe, either thyroid nodule or possibly enlarged parathyroid gland. 3. There is an abnormal 2.7 x 2.2 cm right adrenal nodule noted. Can be further studied with noninfu sed MRI using chemical shift imaging sequences for added specificity RADIATION DOSE DELIVERED: Total DLP DATA REPOSITORY: All CT scans at this facility are submitted to the National Radiology Data Registry (NRDR) Dose Index Registry (DIR) with the [employer] ([employer]). RADIATION OPTIMIZATION: All CT scans at this facility use at least one of these dose optimization te chniques: automated exposure control; mA and/or kV adjustment per patient size (includes targeted exa ms where dose is matched to clinical indication); or iterative reconstruction.
== END ==
PROVIDERS: PCP Family Medicine; Visit Provider Physician Assistant Surgical
DX: J44.9 Chronic obstructive pulmonary disease, unspecified (principal)
CPT/HCPCS: 71250

== ENCOUNTER 2023-07-05 03:14 | Outpatient (CLI) | payer MEDICARE, SELFPAY ==
[2023-07-05 19:44] LABS: Parathyroid Hormone,Intact 158 pg/mL (19-88)
== END 2023-07-05 03:15 | disposition home or self-care (01) ==
PROVIDERS: PCP Family Medicine; Visit Provider Family Medicine
DX: E83.52 Hypercalcemia (principal); M81.0 Age-related osteoporosis without current pathological fracture; N18.30 Chronic kidney disease, stage 3 unspecified
CPT/HCPCS: 36415; 83970